=== PATIENT | female | born 1935 | race Caucasian/White ===

== ENCOUNTER 2016-06-28 18:06 | Inpatient (IN) | payer MEDICARE ==
[~2016-06-28] VITALS: Ht 157.5 cm; Wt 74.8 kg
[2016-06-28] VITALS (18 sets, daily range): BP systolic 100–217; BP diastolic 49–117; PULSE 55–150; RESP 18–24; TEMP 98.1; O2SAT 94–100
[~2016-06-28 18:06] MED LIST: ATOR10 PO; CEPH500C3 PO; DARV PO; LEVO25TA36 PO
[2016-06-28] MEDS ORDERED: NIAC500T18 (18:23)
[2016-06-28] MEDS ORDERED: ASPI81TA81 (18:23)
[2016-06-28] MEDS ORDERED: PROBCAP11 (18:23)
[2016-06-28] MEDS ORDERED: FISH120014 (18:23)
[2016-06-28] MEDS ORDERED: CYAN1TAB24 (18:23)
[2016-06-28] MEDS ORDERED: SPIR25TA PO (18:23)
[2016-06-28] MEDS ORDERED: LIPI10TA PO (18:23)
[2016-06-28] MEDS ORDERED: LISI10TA3 PO (18:23)
[2016-06-28] MEDS ORDERED: diphenhydrAMINE HCL 50 MG/ML VIAL ONE (18:25)
[2016-06-28] MEDS ORDERED: EPINEPHrine HCL (1:1000) 1 MG/ML VIAL ONE (18:25)
[2016-06-28] MEDS ORDERED: methylPREDNISolone SOD SUCC 125 MG/2 ML VIAL ONE (18:26)
[2016-06-28] MEDS ORDERED: ETOMIDATE 20 MG/10 ML VIAL ONE (18:26)
[2016-06-28] MEDS ORDERED: SUCCINYLCHOLINE CHLORIDE 200 MG/10 ML VIAL ONE (18:26)
[2016-06-28] MEDS ORDERED: SODIUM CHLOR 0.9% 1000 ML INJ 1,000 ML IV SCH (18:32)
[2016-06-28] MEDS ORDERED: PROPOFOL 1000 MG/100 ML INJ 100 ML ONE (18:44)
[2016-06-28] MEDS ORDERED: EPINEPHrine HCL (1:1000) 1 MG/ML VIAL IM ONE (18:45)
[2016-06-28] MEDS ORDERED: SODIUM CHLORIDE 0.9% FLUSH 5 ML FLUSH IVF PRN (18:45)
[2016-06-28] MEDS ORDERED: FAMOTIDINE 20 MG/2 ML VIAL IV PUSH ONE (18:45)
[2016-06-28] MEDS ORDERED: methylPREDNISolone SOD SUCC 125 MG/2 ML VIAL IVP ONE (18:45)
[2016-06-28] MEDS ORDERED: diphenhydrAMINE HCL 50 MG/ML VIAL IVP ONE (18:45)
--- NOTE | 2016-06-28 19:05 | PD ---
HPI Chief Complaint: Allergic/Adverse Reaction Time Seen by Provider: 18:32 Travel History International Travel<30 days: No Contact w/Intl Traveler<30days: No Traveled to known affect area: No History of Present Illness HPI 80yo F with PMH of HTN on lisinopril presents to the ED with marked swelling in tongue since 4pm today. Pt had lip swelling 2 days ago that resolved on its own so she did not seek medical attention. Pt states she is not able to speak due to tongue swelling. States that she feels like her throat is swelling up too. Denies any fever, chest pain, sob, n/v, abdominal pain, weakness or numbness. PFSH Past Medical History Cardiovascular Problems: Yes High Cholesterol: Yes Diminished Hearing: No Hypertension: Yes Thyroid Disease: Yes Triglycerides - High: Yes Tetanus Vaccination: > 5 Years Influenza Vaccination: No Menopausal: Yes Past Surgical History Abdominal Surgery: Yes Appendectomy: Yes Social History Alcohol Use: No Tobacco Use: No Substance Use: No Allergies-Medications (Allergen,Severity, Reaction): Coded Allergies: No Known Allergies (Verified , 06/28/16) Reported Meds & Prescriptions Reported Meds & Active Scripts Active Reported Probiotic (Probiotic Product) 1 Cap Cap Fish Oil ([place]-3 Fatty Acids) 1,200 Mg Cap 1,200 B12 (Cyanocobalamin) 1,000 Mcg Tab Niacin (Niacinamide) 500 Mg Tab 50 Mg Aspir-81 (Aspirin) 81 Mg Tabdr Spironolactone 25 Mg Tab 25 Mg PO DAILY Lipitor (Atorvastatin Calcium) 10 Mg Tab 10 Mg PO HS Review of Systems Except as stated in HPI: all other systems reviewed are Neg Physical Exam Narrative GENERAL: 80yo F in mild distress. SKIN: Warm and dry. HEAD: Atraumatic. Normocephalic. EYES: Pupils equal and round. No scleral icterus. No injection or drainage. ENT: Marked tongue swelling up to the roof of the hard palate. Unable to visualize uvula. NECK: Trachea midline. No JVD. CARDIOVASCULAR: Regular rate and rhythm. No murmur appreciated. RESPIRATORY: No accessory muscle use. Clear to auscultation. Breath sounds equal bilaterally. GASTROINTESTINAL: Abdomen soft, non-tender, nondistended. No rebound tenderness or guarding. MUSCULOSKELETAL: No obvious deformities. No clubbing. No cyanosis. No edema. NEUROLOGICAL: Awake and alert. No obvious cranial nerve deficits. Motor grossly within normal limits. PSYCHIATRIC: Appropriate mood and affect; insight and judgment normal. Data Data Last Documented VS Vital Signs Date Time Temp Pulse Resp B/P Pulse Ox O2 Delivery O2 Flow Rate FiO2 06/28/16 18:48 98 40 06/28/16 18:40 150 18 217/117 Auto-Vent 06/28/16 18:35 2 06/28/16 18:16 98.1 Orders Epinephrine (1:1000) Inj (Adrenalin (1:1 (06/28/16 18:25) Diphenhydramine Inj (Benadryl Inj) (06/28/16 18:25) Methylprednisolone So Succ Inj (Solumedr (06/28/16 18:26) Etomidate Inj (Amidate Inj) (06/28/16 18:26) Succinylcholine Inj (Quelicin Inj) (06/28/16 18:26) Basic Metabolic Panel (Bmp) (06/28/16 18:32) Complete Blood Count With Diff (06/28/16 18:32) Ecg Monitoring (06/28/16 18:32) Iv Access Insert/Monitor (06/28/16 18:32) Oximetry (06/28/16 18:32) Diphenhydramine Inj (Benadryl Inj) (06/28/16 18:45) Methylprednisolone So Succ Inj (Solumedr (06/28/16 18:45) Famotidine Inj (Pepcid Inj) (06/28/16 18:45) Sodium Chlor 0.9% 1000 Ml Inj (Ns 1000 M (06/28/16 18:32) Sodium Chloride 0.9% Flush (Ns Flush) (06/28/16 18:45) Epinephrine (1:1000) Inj (Adrenalin (1:1 (06/28/16 18:45) Propofol 1000 Mg/100 Ml Inj (Diprivan 10 (06/28/16 18:44) Labs Laboratory Tests Test 06/28/16 18:45 White Blood Count 7.5 TH/MM3 Red Blood Count 3.82 MIL/MM3 Hemoglobin 12.6 GM/DL Hematocrit 37.7 % Mean Corpuscular Volume 98.7 FL Mean Corpuscular Hemoglobin 32.9 PG Mean Corpuscular Hemoglobin 33.3 % Concent Red Cell Distribution Width 13.4 % Platelet Count 203 TH/MM3 Mean Platelet Volume 8.9 FL Neutrophils (%) (Auto) 57.4 % Lymphocytes (%) (Auto) 28.2 % Monocytes (%) (Auto) 11.7 % Eosinophils (%) (Auto) 2.5 % Basophils (%) (Auto) 0.2 % Neutrophils # (Auto) 4.3 TH/MM3 Lymphocytes # (Auto) 2.1 TH/MM3 Monocytes # (Auto) 0.9 TH/MM3 Eosinophils # (Auto) 0.2 TH/MM3 Basophils # (Auto) 0.0 TH/MM3 CBC Comment DIFF FINAL Differential Comment Sodium Level 135 MEQ/L Potassium Level 3.7 MEQ/L Chloride Level 98 MEQ/L Carbon Dioxide Level 28.2 MEQ/L Anion Gap 9 MEQ/L Blood Urea Nitrogen 8 MG/DL Creatinine 0.67 MG/DL Estimat Glomerular Filtration 84 ML/MIN Rate Random Glucose 84 MG/DL Calcium Level 9.3 MG/DL MDM Medical Decision Making Medical Screen Exam Complete: Yes Emergency Medical Condition: Yes Differential Diagnosis Anaphylaxis vs. angioedema Narrative Course 80yo F with marked tongue swelling that did not improve after epinephrine, solumedrol, diphenhydramine and famotidine. Concern for pt's airway so pt emergently intubated with glidescope. Intubation was achieved with RSI and glidescope. Labs reviewed, no leukocytosis. BMP unremarkable. Pt was not sedated on propofol drip so switched to fentanyl and versed drip. Discussed with Dr. Guillen and accepted to ICU. Critical Care Narrative Aggregate critical care time was 40 minutes. Time to perform other separately billable procedures was not included in the critical care time. My time did not include minutes spent treating any other patients simultaneously or on activities that did not directly contribute to the patient's treatment. The services I provided to this patient were to treat and/or prevent clinically significant deterioration that could result in: airway compromise and . I provided critical care services requiring my management, as noted below: Chart data review, documentation time, medication orders and management, vital sign assessments/reviewing monitor data, ordering and reviewing lab tests, ordering and interpreting/reviewing x-rays and diagnostic studies, care of the patient and discussion of the patient with the admitting physicians. Procedures Procedure Narrative The patient was put in optimal position for the procedure. Rapid sequence intubation was initiated by me using 20 milligrams of etomidate IV and 100 milligrams of succinylcholine IV. The patient was intubated with a 7.0 cuffed endotracheal tube using glidescope on first pass. Tube placement was confirmed by visualization of the tube and balloon passing through the cords, and capnometry. Breath sounds were equal and well aerated bilaterally postintubation. No breath sounds over stomach. Patient tolerated procedure well. Diagnosis Primary Impression: Angioedema Qualified Code: T78.3XXA - Angioedema, initial encounter Admitting Information Admitting Physician Requests: Admit Denise Hall DO Jun 28, 2016 19:05 Denise Hall DO Jun 28, 2016 19:05
[2016-06-28] MEDS ORDERED: MIDAZOLAM HCL 5 MG/ML VIAL (1 ML) ONE (19:09)
[2016-06-28 19:30] LABS: AUTOMATED NEUTROPHIL # 4.3 TH/MM3 (1.8-7.7); BASOPHIL % 0.2 % (0.0-2.0); EOSINOPHIL # 0.2 TH/MM3 (0-0.4); EOSINOPHIL % 2.5 % (0.0-4.0); HEMATOCRIT 37.7 % (35.0-46.0); HEMO FLAGS DIFF FINAL; LYMPH % 28.2 % (9.0-44.0); LYMPHOCYTE # 2.1 TH/MM3 (1.0-4.8); MEAN CELL VOLUME 98.7 FL (80.0-100.0); MEAN CORPUSCULAR HEMOGLOBIN 32.9 PG (27.0-34.0); MEAN CORPUSCULAR HGB CONC 33.3 % (32.0-36.0); MONO % 11.7 % (0.0-8.0); NEUT % 57.4 % (16.0-70.0); PLATELET COUNT 203 TH/MM3 (150-450); RED BLOOD COUNT 3.82 MIL/MM3 (4.00-5.30); RED CELL DISTRIBUTION WIDTH 13.4 % (11.6-17.2); WHITE BLOOD COUNT 7.5 TH/MM3 (4.0-11.0)
[2016-06-28] MEDS ORDERED: CHLORHEXIDINE GLUCONATE 2 % 1 PACK (2 CLOTHS) TOP PRN (19:30)
[2016-06-28] MEDS ORDERED: ACETAMINOPHEN 325 MG TAB PO PRN (19:30)
[2016-06-28] MEDS ORDERED: MISCELLANEOUS NURSING INFORMATION XX SCH (19:30)
[2016-06-28] MEDS ORDERED: MIDAZOLAM HCL 2 MG/2 ML VIAL IV PRN (19:30)
[2016-06-28] MEDS ORDERED: METOCLOPRAMIDE HCL 10 MG/2 ML VIAL IV PRN (19:30)
[2016-06-28] MEDS ORDERED: ONDANSETRON HCL 4 MG/2 ML VIAL IV PRN (19:30)
[2016-06-28] MEDS ORDERED: RESP: ALBUTEROL 2.5 MG/IPRATROPIUM 0.5 MG NEB (PRN) INH (19:30)
[2016-06-28] MEDS ORDERED: SODIUM CHLORIDE 0.9% FLUSH 5 ML FLUSH IV FLUSH PRN (19:30)
[2016-06-28] MEDS ORDERED: MIDAZOLAM 100 MG/ML INJ 100 ML ONE (19:35)
[2016-06-28] MEDS ORDERED: fentaNYL DRIP 250 ML ONE (19:35)
[2016-06-28] MEDS: MIDAZOLAM 100 MG/ML INJ 100 ML IV SCH (19:38)
[2016-06-28] MEDS: fentaNYL DRIP 250 ML IV SCH (19:39)
[2016-06-28 19:43] LABS: BLOOD GAS CARBOXYHEMOGLOBIN 2.1 % (0-4); BLOOD GAS HCO3 24 mmol/L (22-26); BLOOD GAS METHEMOGLOBIN 1.7 % (0-2); BLOOD GAS O2 HGB SATURATION 96 % (90-100); BLOOD GAS PCO2 41 mmHg (38-42); BLOOD GAS PO2 132 mmHG (61-120); BLOOD GAS TOTAL HGB 11.8 G/DL (12.0-16.0); CRITICAL VALUE NO; OXYGEN DEVICE VENTILATOR; TEMP CORR TO 98.6
[2016-06-28 19:44] LABS: DRAW SITE LT RADIAL; FIO2 40 %; NUMBER OF ARTERIAL PUNCTURES 1; STAT NO; ULNAR PULSE PRESENT; VENT SETTINGS PRVC/AC
[2016-06-28] MEDS ORDERED: MIDAZOLAM HCL 2 MG/2 ML VIAL IV PUSH ONE (19:45)
[2016-06-28 19:49] LABS: BICARBONATE 28.2 MEQ/L (21.0-32.0); POTASSIUM 3.7 MEQ/L (3.5-5.1)
[2016-06-28] MEDS: RESP: ALBUTEROL 2.5 MG/IPRATROPIUM 0.5 MG NEB (SCH) INH ×2 (20:10→23:59)
[2016-06-28] MEDS: SODIUM CHLOR 0.9% 1000 ML INJ 1,000 ML IV SCH (20:39)
--- NOTE | 2016-06-28 20:47 | HHI.HP ---
HPI Service Critical Care Medicine Primary Care Physician Unknown Admission Diagnosis Anaphylaxis Diagnosis: Travel History International Travel<30 Days: No Contact w/Intl Traveler <30 Da: No Traveled to Known Affected Are: No History of Present Illness 80 year old female HTN on lisinopril presents to the ED with swelling in tongue since 4pm today. She also had lip swelling 2 days ago that resolved on its own so she did not seek medical attention. Her edema was gettring worse and she was intubated in the ED by ER attending. Review of Systems ROS Unable to obtain, patient is sedated and intubated Past Family Social History Allergies: Coded Allergies: No Known Allergies (Verified , 06/28/16) Past Medical History High Cholesterol, Hypertension, Thyroid Disease Past Surgical History Appendectomy Reported Medications Probiotic (Probiotic Product) 1 Cap Cap Fish Oil ([place]-3 Fatty Acids) 1,200 Mg Cap 1,200 B12 (Cyanocobalamin) 1,000 Mcg Tab Niacin (Niacinamide) 500 Mg Tab 50 Mg Aspir-81 (Aspirin) 81 Mg Tabdr Lisinopril 10 Mg Tab 10 Mg PO DAILY Spironolactone 25 Mg Tab 25 Mg PO DAILY Lipitor (Atorvastatin Calcium) 10 Mg Tab 10 Mg PO HS Active Ordered Medications Current Medications Medications (Trade) Dose Ordered Sig/[place] Route PRN Reason Start Time Stop Time Status Last Admin Dose Admin Midazolam HCl 100 ml @ 0 mls/hr CONTINUOUS IV 06/28/16 19:30 06/28/16 19:38 Fentanyl Citrate 250 ml @ 0 mls/hr CONTINUOUS IV 06/28/16 19:30 06/28/16 19:39 Sodium Chloride (NS 1000 ml Inj) 1,000 ml @ 84 mls/hr [id number] IV 06/28/16 19:21 06/28/16 20:39 IV Flush (NS Flush) 2 ml UNSCH PRN IV FLUSH FLUSH AFTER USING IV ACCESS 06/28/16 19:30 IV Flush (NS Flush) 2 ml BID IV FLUSH 06/28/16 21:00 Acetaminophen (Tylenol) 650 mg Q6H PRN PO PAIN 1-10 AND/OR FEVER >101F 06/28/16 19:30 Famotidine (Pepcid Inj) 20 mg Q12HR IV PUSH 06/28/16 21:00 Midazolam HCl (Versed Inj) 2 mg Q1H PRN IV SEDATION 06/28/16 19:30 Artificial Tears (Tears Naturale Opth Soln) 1 drop TID EACH EYE 06/29/16 09:00 Ondansetron HCl (Zofran Inj) 4 mg Q6H PRN IV NAUSEA OR VOMITING 06/28/16 19:30 Metoclopramide HCl (Reglan Inj) 10 mg Q6H PRN IV NAUSEA OR VOMITING 06/28/16 19:30 Docusate Sodium (Colace Liq) 100 mg Q12HR G-TUBE 06/28/16 21:00 Enoxaparin Sodium (Lovenox Inj) 30 mg Q24H SQ 06/28/16 21:00 Miscellaneous Information 1 [id number] 06/28/16 19:30 Chlorhexidine Gluconate (Chlorhexidine 2% Cloth) 3 pack Taper DAILY@04 TOP 06/29/16 04:00 06/25/17 03:59 Chlorhexidine Gluconate (Chlorhexidine 2% Cloth) 3 pack UNSCH PRN TOP HYGIENIC CARE 06/28/16 19:30 Dexamethasone Sodium Phosphate (Decadron Inj) 10 mg Q24H IM 06/28/16 21:00 06/30/16 21:01 Diphenhydramine HCl (Benadryl Inj) 25 mg Q6H IM 06/28/16 21:00 Family History Noncontributory Social History Alcohol Use Tobacco Use Substance Use Physical Exam Vital Signs Vital Signs Date Time Temp Pulse Resp B/P Pulse Ox O2 Delivery O2 Flow Rate FiO2 06/28/16 20:40 82 18 121/58 95 Auto-Vent 06/28/16 20:23 73 18 108/53 96 Auto-Vent 06/28/16 19:46 99 40 06/28/16 19:44 87 18 142/65 100 Auto-Vent 06/28/16 19:31 93 18 144/65 99 Auto-Vent 06/28/16 19:21 94 18 160/70 98 Auto-Vent 06/28/16 19:05 96 18 162/74 99 Auto-Vent 06/28/16 18:59 120 18 201/115 97 Auto-Vent 06/28/16 18:48 98 40 06/28/16 18:40 150 18 217/117 98 Auto-Vent 06/28/16 18:35 22 95 Nasal Cannula 2 06/28/16 18:24 22 97 Nasal Cannula 2 06/28/16 18:16 98.1 93 24 211/95 95 Physical Exam GENERAL: Well-nourished, well-developed patient. SKIN: Warm and dry. HEAD: Normocephalic. EYES: No scleral icterus. No injection or drainage. NECK: Supple, trachea midline. No JVD or lymphadenopathy. CARDIOVASCULAR: Regular rate and rhythm without murmurs, gallops, or rubs. RESPIRATORY: Breath sounds equal bilaterally. No accessory muscle use. GASTROINTESTINAL: Abdomen soft, non-tender, nondistended. MUSCULOSKELETAL: No cyanosis, or edema. BACK: Nontender without obvious deformity. No CVA tenderness. Laboratory Laboratory Tests Test 06/28/16 06/28/16 18:45 19:35 White Blood Count 7.5 Red Blood Count 3.82 Hemoglobin 12.6 Hematocrit 37.7 Mean Corpuscular Volume 98.7 Mean Corpuscular Hemoglobin 32.9 Mean Corpuscular Hemoglobin 33.3 Concent Red Cell Distribution Width 13.4 Platelet Count 203 Mean Platelet Volume 8.9 Neutrophils (%) (Auto) 57.4 Lymphocytes (%) (Auto) 28.2 Monocytes (%) (Auto) 11.7 Eosinophils (%) (Auto) 2.5 Basophils (%) (Auto) 0.2 Neutrophils # (Auto) 4.3 Lymphocytes # (Auto) 2.1 Monocytes # (Auto) 0.9 Eosinophils # (Auto) 0.2 Basophils # (Auto) 0.0 CBC Comment DIFF FINAL Differential Comment Sodium Level 135 Potassium Level 3.7 Chloride Level 98 Carbon Dioxide Level 28.2 Anion Gap 9 Blood Urea Nitrogen 8 Creatinine 0.67 Estimat Glomerular Filtration 84 Rate Random Glucose 84 Calcium Level 9.3 Blood Gas Puncture Site LT RADIAL Blood Gas Patient Temperature 98.6 Blood Gas HCO3 24 Blood Gas Base Excess -1.0 Blood Gas Oxygen Saturation 96 Arterial Blood pH 7.38 Arterial Blood Partial 41 Pressure CO2 Arterial Blood Partial 132 Pressure O2 Arterial Blood Oxygen Content 16.0 Arterial Blood 2.1 Carboxyhemoglobin Arterial Blood Methemoglobin 1.7 Blood Gas Hemoglobin 11.8 Oxygen Delivery Device VENTILATOR Blood Gas Ventilator Setting PRVC/AC Blood Gas Inspired Oxygen 40 Result Diagram: 06/28/16 1845 06/28/161844 Septic Shock Reassessment Peripheral Pulses: Bounding Right Radial Bounding Left Radial Assessment and Plan Problem List: (1) Angioedema ICD Code: T78.3XXA Status: Acute (2) Dyslipidemia ICD Code: E78.5 Status: Acute (3) HTN (hypertension) ICD Code: I10 Status: Acute (4) Respiratory failure ICD Code: J96.90 Status: Acute Assessment and Plan Respiratory failure - intubated for an airway protection - continue mechanical ventilation until angioedema resoles - ABG/CXR a.m. Angioedema - ACEi related ?? - Steroids, H1, H2 - supportive care HTN - Hydralazine PRN - goal SBT < 150 - Resume home meds except Lisinopril Nutrition - TF DVT/GI prophylaxis - Lovenox/Pepcid Critical Care: The total critical care time was 35 minutes. Time to perform other separately billable procedures was not included in the critical care time. Manan Guillen MD Jun 28, 2016 20:47
[2016-06-28] MEDS ORDERED: DEXAMETHASONE SOD PHOS 20 MG/5 ML VIAL IM SCH (21:00)
[2016-06-28] MEDS: FAMOTIDINE 20 MG/2 ML VIAL IV PUSH SCH (21:00)
[2016-06-28] MEDS ORDERED: diphenhydrAMINE HCL 50 MG/ML VIAL IM SCH (21:00)
[2016-06-28] MEDS: SODIUM CHLORIDE 0.9% FLUSH 5 ML FLUSH IV FLUSH SCH (21:00)
[2016-06-28] MEDS: DOCUSATE SODIUM 100 MG/10 ML UDC G-TUBE SCH (21:00)
[2016-06-28] MEDS: ENOXAPARIN SODIUM 30 MG/0.3 ML SYRINGE SQ SCH (21:00)
[2016-06-28] MEDS ORDERED: hydrALAZINE HCL 20 MG/ML VIAL IV PUSH PRN (21:45)
--- NOTE | 2016-06-28 23:46 | RADRPT ---
EXAM DATE/TIME: 06/28/2016 23:07 [facility] COMPARISON: No previous studies available for comparison. INDICATIONS : Post intubation. MEDICAL HISTORY : Unobtainable. SURGICAL HISTORY : Unobtainable. ENCOUNTER: Initial ACUITY: 1 day PAIN SCORE: Non-responsive. LOCATION: Bilateral chest FINDINGS: The lungs are clear without infiltrate, nodule, or mass. There is no appreciable pleural effusion fo r technique. Heart and mediastinum are unremarkable. NG tube is present with tip in the stomach. ET tube is present with tip overlapping approximately 4 cm above the greg. CONCLUSION: No acute cardiopulmonary disease. Cristina Youssef MD on June 28, 2016 at 23:44 Board Certified Radiologist. This report was verified electronically.
[2016-06-29] VITALS (16 sets, daily range): BP systolic 96–138; BP diastolic 51–65; PULSE 57–77; RESP 14–20; TEMP 97.7–98.4; O2SAT 96–100
[2016-06-29] MEDS: RESP: ALBUTEROL 2.5 MG/IPRATROPIUM 0.5 MG NEB (SCH) INH ×5 (03:31→19:44)
[2016-06-29] MEDS: CHLORHEXIDINE GLUCONATE 2 % 1 PACK (2 CLOTHS) TOP SCH (04:00)
[2016-06-29 05:26] LABS: BLOOD GAS BASE EXCESS -0.8 mmol/L (-2-2); BLOOD GAS CARBOXYHEMOGLOBIN 1.5 % (0-4); BLOOD GAS HCO3 25 mmol/L (22-26); BLOOD GAS METHEMOGLOBIN 0.9 % (0-2); BLOOD GAS O2 HGB SATURATION 97 % (90-100); BLOOD GAS OXYGEN CONTENT 15.1 Vol % (12.0-20.0); BLOOD GAS PCO2 49 mmHg (38-42); BLOOD GAS PO2 134 mmHg (61-120); BLOOD GAS TOTAL HGB 10.9 G/DL (12.0-16.0); CRITICAL VALUE NO; TEMP CORR TO 98.6
[2016-06-29 05:27] LABS: OXYGEN DEVICE VENTILATOR
[2016-06-29 05:28] LABS: DRAW SITE RT RADIAL; FIO2 35 %; NUMBER OF ARTERIAL PUNCTURES 2; STAT NO; ULNAR PULSE PRESENT; VENT SETTINGS PRVC/AC
[2016-06-29 05:55] LABS: BASOPHIL % 0.1 % (0.0-2.0); HEMATOCRIT 32.8 % (35.0-46.0); HEMO FLAGS DIFF FINAL; LYMPH % 6.7 % (9.0-44.0); LYMPHOCYTE # 0.4 TH/MM3 (1.0-4.8); MEAN CELL VOLUME 98.4 FL (80.0-100.0); MEAN CORPUSCULAR HEMOGLOBIN 32.2 PG (27.0-34.0); MEAN CORPUSCULAR HGB CONC 32.7 % (32.0-36.0); MONO % 2.4 % (0.0-8.0); NEUT % 90.8 % (16.0-70.0); PLATELET COUNT 165 TH/MM3 (150-450); RED BLOOD COUNT 3.33 MIL/MM3 (4.00-5.30); WHITE BLOOD COUNT 6.6 TH/MM3 (4.0-11.0)
[2016-06-29 06:26] LABS: ANION GAP 7 MEQ/L (5-15); AST (GOT) 15 U/L (15-37); BICARBONATE 25.9 MEQ/L (21.0-32.0); BLOOD UREA NITROGEN 10 MG/DL (7-18); CHLORIDE 104 MEQ/L (98-107); GLOMERULAR FILTRATION RATE 86 ML/MIN (>89); MAGNESIUM 1.8 MG/DL (1.5-2.5); POTASSIUM 4.3 MEQ/L (3.5-5.1); SODIUM (NA) 137 MEQ/L (136-145)
[2016-06-29 06:29] LABS: ALKALINE PHOSPHATASE 69 U/L (45-117); ALT (GPT) 18 U/L (10-53); TOTAL BILIRUBIN ADULT 0.3 MG/DL (0.2-1.0)
--- NOTE | 2016-06-29 07:00 | RADRPT ---
EXAM DATE/TIME: 06/29/2016 06:08 [facility] COMPARISON: CHEST SINGLE AP, June 28, 2016, 23:07. INDICATIONS : Evaluate for respiratory failure. MEDICAL HISTORY : None. SURGICAL HISTORY : None. ENCOUNTER: Subsequent ACUITY: 3 days PAIN SCORE: Non-responsive. LOCATION: chest FINDINGS: ET tube, and NG tube have not changed. The lungs are clear without infiltrate, nodule, or mass. Ther e is no appreciable pleural effusion for technique. Heart and mediastinum are unremarkable. CONCLUSION: No acute cardiopulmonary disease. Cristina Youssef MD on June 29, 2016 at 6:58 Board Certified Radiologist. This report was verified electronically.
--- NOTE | 2016-06-29 07:13 | HHI.CCPN ---
Subjective Remarks/Hospital Course 80 year old female HTN on lisinopril presents to the ED with swelling in tongue since 4pm today. She also had lip swelling 2 days ago that resolved on its own so she did not seek medical attention. Her edema was getting worse and she was intubated in the ED by ER attending. SUBJECTIVE: 06/29: Sedated on the ventilator. Afebrile. Bradycardic. Hemodynamically appears to be stable. Her tongue continues to protrude from mouth. On Versed and fentanyl drips and sedated. Objective Vital Signs Date Time Temp Pulse Resp B/P Pulse Ox O2 Delivery O2 Flow Rate FiO2 06/29/16 06:00 57 06/29/16 04:00 97.9 20 97/51 98 06/29/16 03:32 35 06/28/16 23:34 Auto-Vent 06/28/16 18:35 2 Intake and Output 06/28/16 06/28/16 06/29/16 08:00 16:00 00:00 Intake Total 338 ml Output Total 575 ml Balance -237 ml Result Diagram: 06/29/16 0521 06/29/16 0521 Imaging Last Impressions Chest X-Ray 06/28/16 0000 Signed Impressions: Service Date/Time: June 23:07 - CONCLUSION: No acute cardiopulmonary disease. Cristina Youssef MD Objective Remarks GENERAL: 80-year-old female, well-nourished and well-developed critically ill and currently orotracheally intubated SKIN: Warm and dry. No rash HEAD: Normocephalic. EYES: PERRL 2 mm b/l and reactive. No scleral icterus. No injection or drainage. N/T: Tongue does protrude from mouth. NECK: Supple, trachea midline. No JVD or lymphadenopathy. CARDIOVASCULAR: Bradycardic, RR. S1, S2. No S4. Currently without murmurs, gallops, or rubs. RESPIRATORY: Breath sounds equal bilaterally. No accessory muscle use. GASTROINTESTINAL: Abdomen soft, non-tender, nondistended. Active bowel sounds MUSCULOSKELETAL: No significant peripheral edema. BACK: Nontender without obvious deformity. No CVA tenderness. Urinary Catheter: Yes Assessment to: Continue Will insert reason: Prolonged Immobilization Vascular Central Line Catheter: No Assessment to: Continue A/P Problem List: (1) Angioedema ICD Code: T78.3XXA Status: Acute (2) Dyslipidemia ICD Code: E78.5 Status: Acute (3) HTN (hypertension) ICD Code: I10 Status: Acute (4) Respiratory failure ICD Code: J96.90 Status: Acute Assessment and Plan Neuro/Psych: Patient is currently on propofol/fentanyl drips for sedation/analgesia while intubated Goal RASS -2 Daily sedation vacation CV: Sinus bradycardia History of hypertension History dyslipidemia Currently on normal saline at 84 cc an hour. Currently not requiring antihypertensives and/or vasopressors. Discontinue lisinopril. Possibly J CARLOS-induced angioedema Checking complements As needed hydralazine for hypertension. Holding spironolactone 25 mg by mouth daily for hypertension. Holding Lipitor 10 mg daily/fish oil 1000 mg/niacin 500 mg daily with aspirin 81 mg daily by mouth daily dyslipidemia. Resume when clinically indicated Resp: Acute respiratory failure secondary to angioedema PRVC 14/~500/1.0/5/35 Ventilator bundle Scheduled bronchodilator therapy every 4 hours and as needed Spontaneous breathing trials daily Chest x-ray today reveals no acute cardiopulmonary findings. Adequate positioning ET tube. Impetus to liberation from ventilator is angioedema GI: Patient is currently on TwoCal goal 55 cc an hour for nutrition Pepcid 20 mg IV twice a day for GI prophylaxis Colace/Senokot twice a day for bowel regimen : Will has been placed for accurate I's and O's in a critically ill patient. Endo: Hyperglycemia - critical illness/steroid-induced History of hypothyroidism? Sliding-scale insulin with Accu-Cheks every 6 hours to maintain euglycemia. Low regimen. Check TSH. Currently not on any thyroid medications. Renal: Monitor urine output Accurate I/O's. Follow-ups BMP in a.m. Heme: Normocytic anemia Follow CBC in AM. ID: Monitor for infection FEN: Hypo-magnesium 2 g mag sulfate IV 1. Recheck in a.m. MSK: PT evaluate and treat Access - Utilize peripheral IV. Central if indicated Prophylaxis - GI - Pepcid - DVT - SCD/Lovenox subcutaneous Critical Care: The total critical care time was 35 minutes. Time to perform other separately billable procedures was not included in the critical care time. Resp iratory failure - intubated for an airway protection - continue mechanical ventilation until angioedema resoles - ABG/CXR a.m. Angioedema - ACEi related ?? - Steroids, H1, H2 - supportive care HTN - Hydralazine PRN - goal SBT < 150 - Resume home meds except Lisinopril Nutrition - TF DVT/GI prophylaxis - Lovenox/Pepcid Critical Care: The total critical care time was 35 minutes. Time to perform other separately billable procedures was not included in the critical care time. Problem Qualifiers (1) Angioedema: Qualified Code: T78.3XXA - Angioedema, initial encounter Robb Seymour MD Jun 29, 2016 07:13
[2016-06-29] MEDS ORDERED: GLUCAGON 1 MG/ML VIAL OTHER PRN (07:15)
[2016-06-29] MEDS ORDERED: DEXTROSE 50% IN WATER 50 ML VIAL(D50) IV PUSH PRN (07:15)
[2016-06-29] MEDS: diphenhydrAMINE HCL 50 MG/ML VIAL IV PUSH SCH ×3 (07:44→19:59)
[2016-06-29] MEDS: methylPREDNISolone SOD SUCC 125 MG/2 ML VIAL IV PUSH SCH ×2 (07:45→20:07)
[2016-06-29] MEDS: SENNOSIDES SYRUP 8.8 MG/5 ML CUP PO SCH ×2 (07:45→20:07)
[2016-06-29] MEDS: MAGNESIUM SULFATE 1 GM PREMIX 100 ML IV SCH ×2 (07:45→09:04)
[2016-06-29] MEDS: DOCUSATE SODIUM 100 MG/10 ML UDC G-TUBE SCH ×2 (07:53→20:07)
[2016-06-29 08:46] LABS: HDL CHOLESTEROL 74.6 MG/DL (40.0-60.0)
[2016-06-29] MEDS: FAMOTIDINE 20 MG/2 ML VIAL IV PUSH SCH ×2 (09:00→20:08)
[2016-06-29] MEDS: ARTIFICIAL TEARS OPTH SOLN 15 ML BTL EACH EYE SCH ×3 (09:00→18:00)
[2016-06-29] MEDS: SODIUM CHLOR 0.9% 1000 ML INJ 1,000 ML IV SCH ×2 (09:04→17:49)
[2016-06-29] MEDS: SODIUM CHLORIDE 0.9% FLUSH 5 ML FLUSH IV FLUSH SCH ×2 (09:05→20:09)
[2016-06-29] MEDS: INSULIN NovoLIN REGULAR SUPPLEMENTAL SCALE SQ SCH ×3 (11:00→20:53)
[2016-06-29] MEDS ORDERED: ALBUMIN HUMAN 25% 25 GM/100 ML BAGP IV ONE (11:15)
[2016-06-29] MEDS ORDERED: SODIUM CHLOR 0.9% 1000 ML INJ 1,000 ML IV ONE (11:15)
[2016-06-29] MEDS: ENOXAPARIN SODIUM 30 MG/0.3 ML SYRINGE SQ SCH (20:09)
[2016-06-29 20:17] LABS: BACTERIA, URINE RARE /hpf; BLOOD, URINE LARGE (NEG); GLUCOSE,URINE NEG (NEG); KETONE, URINE NEG (NEG); MUCUS URINE FEW /lpf (OCC); NITRITE,URINE NEG (NEG); PH, URINE 5.5 (5.0-8.5); URINE COLOR YELLOW (YELLW/STRAW)
[2016-06-29 20:18] LABS: COMMENT (UR) CATH-CULTURE IND; CULTURE IF INDICATED CATH CULTURE IND
[2016-06-30] VITALS (20 sets, daily range): BP systolic 111–173; BP diastolic 55–80; PULSE 67–91; RESP 14–20; TEMP 97.3–98.9; O2SAT 96–100
[2016-06-30] MEDS: RESP: ALBUTEROL 2.5 MG/IPRATROPIUM 0.5 MG NEB (SCH) INH ×7 (00:01→23:00)
[2016-06-30] MEDS: diphenhydrAMINE HCL 50 MG/ML VIAL IV PUSH SCH ×5 (02:18→23:42)
[2016-06-30] MEDS: CHLORHEXIDINE GLUCONATE 2 % 1 PACK (2 CLOTHS) TOP SCH (04:00)
[2016-06-30 05:17] LABS: AUTOMATED NEUTROPHIL # 13.2 TH/MM3 (1.8-7.7); BASOPHIL % 0.1 % (0.0-2.0); HEMATOCRIT 29.7 % (35.0-46.0); HEMO FLAGS DIFF FINAL; LYMPH % 1.7 % (9.0-44.0); LYMPHOCYTE # 0.2 TH/MM3 (1.0-4.8); MEAN CELL VOLUME 98.2 FL (80.0-100.0); MEAN CORPUSCULAR HEMOGLOBIN 32.9 PG (27.0-34.0); MEAN CORPUSCULAR HGB CONC 33.5 % (32.0-36.0); MONO % 5.1 % (0.0-8.0); NEUT % 93.1 % (16.0-70.0); PLATELET COUNT 134 TH/MM3 (150-450); RED BLOOD COUNT 3.02 MIL/MM3 (4.00-5.30); RED CELL DISTRIBUTION WIDTH 13.4 % (11.6-17.2); WHITE BLOOD COUNT 14.2 TH/MM3 (4.0-11.0)
[2016-06-30 05:51] LABS: ANION GAP 8 MEQ/L (5-15); AST (GOT) 7 U/L (15-37); BICARBONATE 25.3 MEQ/L (21.0-32.0); BLOOD UREA NITROGEN 27 MG/DL (7-18); CHLORIDE 107 MEQ/L (98-107); GLOMERULAR FILTRATION RATE 69 ML/MIN (>89); MAGNESIUM 2.3 MG/DL (1.5-2.5); POTASSIUM 4.2 MEQ/L (3.5-5.1); SODIUM (NA) 140 MEQ/L (136-145)
[2016-06-30 05:56] LABS: ALKALINE PHOSPHATASE 62 U/L (45-117); ALT (GPT) 16 U/L (10-53); TOTAL BILIRUBIN ADULT 0.2 MG/DL (0.2-1.0)
[2016-06-30 06:15] LABS: CREATINE KINASE 59 U/L (26-192)
[2016-06-30] MEDS: INSULIN NovoLIN REGULAR SUPPLEMENTAL SCALE SQ SCH ×4 (06:36→20:34)
[2016-06-30] MEDS: SODIUM CHLOR 0.9% 1000 ML INJ 1,000 ML IV SCH ×2 (06:37→17:37)
[2016-06-30] MEDS ORDERED: LACTATED RINGER'S 1000 ML INJ 1,000 ML IV ONE (08:00)
[2016-06-30] MEDS: ARTIFICIAL TEARS OPTH SOLN 15 ML BTL EACH EYE SCH ×3 (09:00→20:37)
[2016-06-30] MEDS: DOCUSATE SODIUM 100 MG/10 ML UDC G-TUBE SCH ×2 (09:13→20:35)
[2016-06-30] MEDS: SENNOSIDES SYRUP 8.8 MG/5 ML CUP PO SCH ×2 (09:14→20:35)
[2016-06-30] MEDS: methylPREDNISolone SOD SUCC 125 MG/2 ML VIAL IV PUSH SCH ×2 (09:14→20:35)
[2016-06-30] MEDS: FAMOTIDINE 20 MG/2 ML VIAL IV PUSH SCH ×2 (09:14→20:35)
[2016-06-30] MEDS: SODIUM CHLORIDE 0.9% FLUSH 5 ML FLUSH IV FLUSH SCH ×2 (09:15→20:36)
[2016-06-30] MEDS: fentaNYL DRIP 250 ML IV SCH (09:51)
[2016-06-30] MEDS: MIDAZOLAM 100 MG/ML INJ 100 ML IV SCH (09:51)
[2016-06-30] MEDS: POTASSIUM PHOSPHATE/SODIUM PHOSPHATE 250 MG TAB PO SCH ×3 (11:37→23:43)
--- NOTE | 2016-06-30 12:11 | HHI.CCPN ---
Subjective Remarks/Hospital Course 80 year old female HTN on lisinopril presents to the ED with swelling in tongue since 4pm today. She also had lip swelling 2 days ago that resolved on its own so she did not seek medical attention. Her edema was getting worse and she was intubated in the ED by ER attending. 06/29: Sedated on the ventilator. Afebrile. Bradycardic. Hemodynamically appears to be stable. Her tongue continues to protrude from mouth. On Versed and fentanyl drips and sedated. SUBJECTIVE: 06/30: Afebrile. Her angioedema of her tongue appears to be improving. Plan for CT neck to better define. Possible extubation today. Awake and alert and following commands. No bowel movement. Tolerating tube feeding. Objective Vital Signs Date Time Temp Pulse Resp B/P Pulse Ox O2 Delivery O2 Flow Rate FiO2 06/30/16 10:00 78 06/30/16 08:22 97 35 06/30/16 08:00 98.2 14 113/57 06/28/16 23:34 Auto-Vent 06/28/16 18:35 2.00 Intake and Output 06/29/16 06/29/16 06/30/16 08:00 16:00 00:00 Intake Total 386 ml 2838 ml Output Total 200 ml 400 ml Balance 186 ml 2438 ml Result Diagram: 06/30/16 0456 06/30/16 0456 Other Results Microbiology Date/Time Procedure Status Source Growth 06/29/16 18:00 Urine Culture Received Urine Clean Catch Pending Imaging Last Impressions Chest X-Ray 06/29/16 0600 Signed Impressions: Service Date/Time: Wednesday, June 29, 2016 06:08 - CONCLUSION: No acute cardiopulmonary disease. Cristina Youssef MD Objective Remarks GENERAL: 80-year-old female, well-nourished and well-developed critically ill and currently orotracheally intubated SKIN: Warm and dry. No rash HEAD: Normocephalic. EYES: PERRL 2 mm b/l and reactive. No scleral icterus. No injection or drainage. N/T: Tongue no longer protrudes from mouth. Less swelling noted. Orotracheally intubated. NECK: Supple, trachea midline. No JVD or lymphadenopathy. CARDIOVASCULAR: Bradycardic, RR. S1, S2. No S4. Currently without murmurs, gallops, or rubs. RESPIRATORY: Breath sounds equal bilaterally. No accessory muscle use. GASTROINTESTINAL: Abdomen soft, non-tender, nondistended. Active bowel sounds MUSCULOSKELETAL: No significant peripheral edema. BACK: Nontender without obvious deformity. No CVA tenderness. A/P Problem List: (1) Angioedema ICD Code: T78.3XXA Status: Acute (2) Dyslipidemia ICD Code: E78.5 Status: Acute (3) HTN (hypertension) ICD Code: I10 Status: Acute (4) Respiratory failure ICD Code: J96.90 Status: Acute Assessment and Plan Neuro/Psych: Patient is currently on Versed/fentanyl drips for sedation/analgesia while intubated Goal RASS -2 Daily sedation vacation CV: Sinus bradycardia History of hypertension History dyslipidemia Currently on normal saline at 84 cc an hour. Currently not requiring antihypertensives and/or vasopressors. Discontinue lisinopril. Possibly J CARLOS-induced angioedema Checking complements As needed hydralazine for hypertension. Holding spironolactone 25 mg by mouth daily for hypertension. Holding Lipitor 10 mg daily/fish oil 1000 mg/niacin 500 mg daily with aspirin 81 mg daily by mouth daily dyslipidemia. Resume when clinically indicated Lisinopril added as an allergy. Resp: Acute respiratory failure secondary to angioedema PRVC 14/~500/1.0/5/35 PSV trials today Ventilator bundle Scheduled bronchodilator therapy every 4 hours and as needed Spontaneous breathing trials daily Chest x-ray today reveals no acute cardiopulmonary findings. Adequate positioning ET tube. Impetus to liberation from ventilator is angioedema GI: Patient is currently on Jevity 1.5 goal 55 cc an hour for nutrition Pepcid 20 mg IV twice a day for GI prophylaxis Colace/Senokot twice a day for bowel regimen : Will has been placed for accurate I's and O's in a critically ill patient. Endo: Hyperglycemia - critical illness/steroid-induced History of hypothyroidism? Sliding-scale insulin with Accu-Cheks every 6 hours to maintain euglycemia. Low regimen. TSH within normal limits Renal: Monitor urine output Accurate I/O's. Follow-ups BMP in a.m. Heme: Normocytic anemia Leukocytosis - likely steroid related Thrombocytopenia Follow CBC in AM. ID: Monitor for infection FEN: Hypophosphatemia 4 doses of Neutra-Phos. Recheck in a.m. MSK: PT evaluate and treat Access - Utilize peripheral IV. Central if indicated Prophylaxis - GI - Pepcid - DVT - SCD/Lovenox subcutaneous Critical Care: The total critical care time was 35 minutes. Time to perform other separately billable procedures was not included in the critical care time. Resp iratory failure - intubated for an airway protection - continue mechanical ventilation until angioedema resoles - ABG/CXR a.m. Angioedema - ACEi related ?? - Steroids, H1, H2 - supportive care HTN - Hydralazine PRN - goal SBT < 150 - Resume home meds except Lisinopril Nutrition - TF DVT/GI prophylaxis - Lovenox/Pepcid Critical Care: The total critical care time was 35 minutes. Time to perform other separately billable procedures was not included in the critical care time. Problem Qualifiers (1) Angioedema: Qualified Code: T78.3XXA - Angioedema, initial encounter Robb Seymour MD Jun 30, 2016 12:11
[2016-06-30] MEDS ORDERED: DEXMEDETOMIDINE INJ 50 ML IV SCH (13:30)
[2016-06-30 14:37] LABS: HEMATOCRIT 33.4 % (35.0-46.0); MEAN CELL VOLUME 99.1 FL (80.0-100.0); MEAN CORPUSCULAR HEMOGLOBIN 32.1 PG (27.0-34.0); MEAN CORPUSCULAR HGB CONC 32.4 % (32.0-36.0); PLATELET COUNT 138 TH/MM3 (150-450); RED BLOOD COUNT 3.37 MIL/MM3 (4.00-5.30); RED CELL DISTRIBUTION WIDTH 13.7 % (11.6-17.2); REVIEW FLAG FINAL; WHITE BLOOD COUNT 18.7 TH/MM3 (4.0-11.0)
[2016-06-30 14:53] LABS: BICARBONATE 28.3 MEQ/L (21.0-32.0); POTASSIUM 4.7 MEQ/L (3.5-5.1)
--- NOTE | 2016-06-30 15:07 | RADRPT ---
EXAM DATE/TIME: 06/30/2016 12:05 [facility] COMPARISON: No previous studies available for comparison. INDICATIONS : Swollen tongue. RADIATION DOSE: 23.09 CTDIvol (mGy) MEDICAL HISTORY : Cardiovascular disease. Hypertension. SURGICAL HISTORY : None. ENCOUNTER: Initial ACUITY: 1 day PAIN SCORE: 5/10 LOCATION: cranial TECHNIQUE: Volumetric scanning of the neck was performed. Using automated exposure control and adjustment of th e mA and/or kV according to patient size, radiation dose was kept as low as reasonably achievable to obtain optimal diagnostic quality images. FINDINGS: Intracranial structures demonstrate no acute finding. There is mild periventricular white matter low attenuation. The globes demonstrate no abnormality. There has been prior bilateral cataract surgery. Visualized paranasal sinuses and mastoid air cells are clear. Patient is intubated a nasogastric tube is present. Tongue appears prominent but no definite abnormality is seen. Oropharyngeal airway is mi ldly narrowed. Epiglottis is not well visualized. No definite mass is appreciated on this noncontrast examination. Parotid and submandibular glands demonstrate no abnormality. No lymphadenopathy is seen . Thyroid is heterogeneous in density but no mass is appreciated. Upper lung zones demonstrate no acu te finding. CONCLUSION: The tongue is prominent the but no focal abnormality is appreciated. There is mild narrowing of the o ropharyngeal airway. Patient is intubated and nasogastric tube is present. On this noncontrast examin ation the appreciated a mass or abscess. Rhett Servin MD on June 30, 2016 at 14:58 Board Certified Radiologist. This report was verified electronically.
[2016-06-30] MEDS: ENOXAPARIN SODIUM 30 MG/0.3 ML SYRINGE SQ SCH (20:36)
[2016-07-01] VITALS (17 sets, daily range): BP systolic 108–157; BP diastolic 57–91; PULSE 58–142; RESP 14–18; TEMP 97.6–98.4; O2SAT 92–99
[2016-07-01] MEDS: RESP: ALBUTEROL 2.5 MG/IPRATROPIUM 0.5 MG NEB (SCH) INH ×6 (03:29→23:21)
[2016-07-01] MEDS ORDERED: DILTIAZEM HCL 25 MG/5 ML VIAL IV SCH (03:30)
[2016-07-01] MEDS: CHLORHEXIDINE GLUCONATE 2 % 1 PACK (2 CLOTHS) TOP SCH (04:00)
[2016-07-01] MEDS ORDERED: DILTIAZEM HCL 25 MG/5 ML VIAL IV PRN (04:00)
--- NOTE | 2016-07-01 04:47 | RADRPT ---
EXAM DATE/TIME: 07/01/2016 04:02 [facility] COMPARISON: CHEST SINGLE AP, June 29, 2016, 6:08. INDICATIONS : Shortness of breath, possible pulmonary disease. MEDICAL HISTORY : None. SURGICAL HISTORY : None. ENCOUNTER: Subsequent ACUITY: 4 - 6 days PAIN SCORE: Non-responsive. LOCATION: Bilateral chest FINDINGS: Endotracheal tube tip well above the greg. Gastric tube traverses the [id number]. There is per sisting consolidation in the retrocardiac left lower lung which causes loss of delineation of the med ial left hemidiaphragm. The right lung is clear. The heart is normal size. CONCLUSION: Interval development of atelectasis or consolidation in the medial left lower lung. Carlos Uribe MD on July 01, 2016 at 4:45 Board Certified Radiologist. This report was verified electronically.
[2016-07-01 05:21] LABS: MEAN CELL VOLUME 98.3 FL (80.0-100.0); MEAN CORPUSCULAR HEMOGLOBIN 32.1 PG (27.0-34.0); MEAN CORPUSCULAR HGB CONC 32.7 % (32.0-36.0); PLATELET COUNT 142 TH/MM3 (150-450); RED BLOOD COUNT 3.56 MIL/MM3 (4.00-5.30); RED CELL DISTRIBUTION WIDTH 13.4 % (11.6-17.2); REVIEW FLAG FINAL; WHITE BLOOD COUNT 17.9 TH/MM3 (4.0-11.0)
[2016-07-01] MEDS: diphenhydrAMINE HCL 50 MG/ML VIAL IV PUSH SCH ×3 (05:30→18:25)
[2016-07-01] MEDS: POTASSIUM PHOSPHATE/SODIUM PHOSPHATE 250 MG TAB PO SCH (05:30)
[2016-07-01] MEDS: SODIUM CHLOR 0.9% 1000 ML INJ 1,000 ML IV SCH ×2 (05:31→18:06)
[2016-07-01 05:45] LABS: BICARBONATE 25.8 MEQ/L (21.0-32.0); MAGNESIUM 2.2 MG/DL (1.5-2.5); POTASSIUM 4.3 MEQ/L (3.5-5.1)
[2016-07-01] MEDS: INSULIN NovoLIN REGULAR SUPPLEMENTAL SCALE SQ SCH ×4 (06:14→20:23)
[2016-07-01] MEDS: DOCUSATE SODIUM 100 MG/10 ML UDC G-TUBE SCH ×2 (08:26→20:22)
[2016-07-01] MEDS: methylPREDNISolone SOD SUCC 125 MG/2 ML VIAL IV PUSH SCH ×2 (08:26→20:22)
[2016-07-01] MEDS: SENNOSIDES SYRUP 8.8 MG/5 ML CUP PO SCH ×2 (08:26→20:22)
[2016-07-01] MEDS: FAMOTIDINE 20 MG/2 ML VIAL IV PUSH SCH ×2 (08:29→20:22)
[2016-07-01] MEDS: SODIUM CHLORIDE 0.9% FLUSH 5 ML FLUSH IV FLUSH SCH ×2 (08:29→20:23)
[2016-07-01] MEDS: ARTIFICIAL TEARS OPTH SOLN 15 ML BTL EACH EYE SCH ×3 (12:51→18:00)
[2016-07-01] MEDS ORDERED: DILTIAZEM HCL 25 MG/5 ML VIAL IV ONE ×2 (13:15→20:15)
[2016-07-01] MEDS ORDERED: FUROSEMIDE 40 MG/4 ML VIAL IV PUSH ONE (13:15)
[2016-07-01] MEDS ORDERED: METOPROLOL TARTRATE 5 MG/5 ML VIAL IV PUSH ONE ×2 (13:15→18:15)
[2016-07-01] MEDS: MAGNESIUM SULFATE 1 GM PREMIX 100 ML IV SCH ×2 (13:23→14:44)
[2016-07-01] MEDS ORDERED: METOPROLOL TARTRATE 5 MG/5 ML VIAL ONE (17:53)
[2016-07-01] MEDS ORDERED: HYDROmorphone HCL PF 1 MG/ML VIAL IV PUSH PRN (18:15)
--- NOTE | 2016-07-01 18:19 | HHI.CCPN ---
Subjective Remarks/Hospital Course 80 year old female HTN on lisinopril presents to the ED with swelling in tongue since 4pm today. She also had lip swelling 2 days ago that resolved on its own so she did not seek medical attention. Her edema was getting worse and she was intubated in the ED by ER attending. 06/29: Sedated on the ventilator. Afebrile. Bradycardic. Hemodynamically appears to be stable. Her tongue continues to protrude from mouth. On Versed and fentanyl drips and sedated. SUBJECTIVE: 06/30: Afebrile. Her angioedema of her tongue appears to be improving. Plan for CT neck to better define. Possible extubation today. Awake and alert and following commands. No bowel movement. Tolerating tube feeding. 07/01: afebrile. doing well. large cuff leak this afternoon. Afib RVR overnight. appears hypervolemic. Objective Vital Signs Date Time Temp Pulse Resp B/P Pulse Ox O2 Delivery O2 Flow Rate FiO2 07/01/16 16:00 93 07/01/16 16:00 35 07/01/16 14:35 92 07/01/16 12:00 97.6 16 115/91 06/28/16 23:34 Auto-Vent 06/28/16 18:35 2.00 Intake and Output 06/30/16 06/30/16 07/01/16 08:00 16:00 00:00 Intake Total 970 ml 2083 ml 951 ml Output Total 225 ml 700 ml 450 ml Balance 745 ml 1383 ml 501 ml Result Diagram: 07/01/16 0506 07/01/16 0506 Other Results Microbiology Date/Time Procedure Status Source Growth 06/29/16 18:00 Urine Culture - Final Complete Urine Clean Catch <10,000 CFU/ML GRAM POSITIVE SREEKANTH Imaging Last Impressions Chest X-Ray 06/29/16 0600 Signed Impressions: Service Date/Time: Wednesday, June 29, 2016 06:08 - CONCLUSION: No acute cardiopulmonary disease. Cristina Youssef MD Objective Remarks GENERAL: 80-year-old female, well-nourished and well-developed critically ill and currently orotracheally intubated SKIN: Warm and dry. No rash HEAD: Normocephalic. EYES: PERRL 2 mm b/l and reactive. No scleral icterus. No injection or drainage. N/T: Tongue no longer protrudes from mouth. Less swelling noted. Orotracheally intubated. NECK: Supple, trachea midline. No JVD or lymphadenopathy. CARDIOVASCULAR: Bradycardic, RR. S1, S2. No S4. Currently without murmurs, gallops, or rubs. RESPIRATORY: Breath sounds equal bilaterally. No accessory muscle use. GASTROINTESTINAL: Abdomen soft, non-tender, nondistended. Active bowel sounds MUSCULOSKELETAL: No significant peripheral edema. BACK: Nontender without obvious deformity. No CVA tenderness. A/P Problem List: (1) Angioedema ICD Code: T78.3XXA Status: Acute (2) Dyslipidemia ICD Code: E78.5 Status: Acute (3) HTN (hypertension) ICD Code: I10 Status: Acute (4) Respiratory failure ICD Code: J96.90 Status: Acute Assessment and Plan Assessment: 80yF with angioedema, now with improved swelling. good cuff leak. I think it is safe to extubate the patient. for her afib RVR, we will continued IV diuresis for probable intrasvascular volume overload. rate control with diltiazem po. Neuro/Psych: Patient is currently on Versed/fentanyl drips for sedation/analgesia while intubated Goal RASS 0 Daily sedation vacation will proceed with extubation and oxycodone and dilaudid as needed for pain. CV: Sinus bradycardia History of hypertension History dyslipidemia SL IVF. Currently not requiring antihypertensives and/or vasopressors. Discontinue lisinopril. Possibly J CARLOS-induced angioedema Checking complements As needed hydralazine for hypertension. Holding spironolactone 25 mg by mouth daily for hypertension. Holding Lipitor 10 mg daily/fish oil 1000 mg/niacin 500 mg daily with aspirin 81 mg daily by mouth daily dyslipidemia. Resume when clinically indicated Lisinopril added as an allergy. Resp: Acute respiratory failure secondary to angioedema Passed SBT. will extubate. Scheduled bronchodilator therapy every 4 hours and as needed wean o2 by NC for goal spo2 > 92% EZ-PAP, Acapella, I.S. to bedside. OOB to chair PT consult. GI: Patient is currently on Jevity 1.5 goal 55 cc an hour for nutrition Pepcid 20 mg IV twice a day for GI prophylaxis Colace/Senokot twice a day for bowel regimen : Nicolette has been placed for accurate I's and O's in a critically ill patient. Endo: Hyperglycemia - critical illness/steroid-induced History of hypothyroidism? Sliding-scale insulin with Accu-Cheks every 6 hours to maintain euglycemia. Low regimen. TSH within normal limits Renal: Monitor urine output Accurate I/O's. Lasix 80mg iv x 1. aggressively replace electrolytes. Heme: Normocytic anemia Leukocytosis - likely steroid related Thrombocytopenia Follow CBC in AM. ID: Monitor for infection FEN: Hypophosphatemia- resolved. MSK: PT evaluate and treat Access - Utilize peripheral IV. Central if indicated Prophylaxis - GI - Pepcid - DVT - SCD/Lovenox subcutaneous Problem Qualifiers (1) Angioedema: Qualified Code: T78.3XXA - Angioedema, initial encounter Jared Mahajan MD Jul 01, 2016 18:19
[2016-07-01] MEDS: DILTIAZEM HCL 60 MG TAB PO SCH (19:15)
[2016-07-01] MEDS: ENOXAPARIN SODIUM 30 MG/0.3 ML SYRINGE SQ SCH (20:22)
[2016-07-01 20:46] LABS: BICARBONATE 28.4 MEQ/L (21.0-32.0); MAGNESIUM 2.3 MG/DL (1.5-2.5); POTASSIUM 3.7 MEQ/L (3.5-5.1)
[2016-07-02] VITALS (11 sets, daily range): BP systolic 126–156; BP diastolic 59–84; PULSE 69–133; RESP 16–28; TEMP 98–98.9; O2SAT 95–99
[2016-07-02] MEDS ORDERED: DILTIAZEM 125 MG/NS 100 ML IV SCH ×2 (00:30)
[2016-07-02] MEDS: DILTIAZEM HCL 60 MG TAB PO SCH ×4 (00:49→18:00)
[2016-07-02] MEDS: CHLORHEXIDINE GLUCONATE 2 % 1 PACK (2 CLOTHS) TOP SCH (00:49)
[2016-07-02] MEDS: diphenhydrAMINE HCL 50 MG/ML VIAL IV PUSH SCH ×4 (00:49→21:02)
[2016-07-02] MEDS ORDERED: METOPROLOL TARTRATE 5 MG/5 ML VIAL IV PUSH ONE (01:45)
[2016-07-02] MEDS ORDERED: DIGOXIN 0.5 MG/2 ML VIAL IV PUSH ONE (01:45)
[2016-07-02] MEDS: RESP: ALBUTEROL 2.5 MG/IPRATROPIUM 0.5 MG NEB (SCH) INH ×2 (03:08→08:00)
[2016-07-02] MEDS: INSULIN NovoLIN REGULAR SUPPLEMENTAL SCALE SQ SCH ×2 (06:07→11:00)
[2016-07-02] MEDS ORDERED: AMIODARONE INJ 450 MG in DEXTROSE 5% IN WATE(EXCEL) INJ 241 ML IV SCH ×2 (06:45)
[2016-07-02] MEDS ORDERED: AMIODARONE INJ 150 MG in DEXTROSE 5% IN WATER 100ML INJ 97 ML IV ONE ×2 (06:45)
[2016-07-02 07:58] LABS: HEMATOCRIT 38.4 % (35.0-46.0); MEAN CELL VOLUME 96.6 FL (80.0-100.0); MEAN CORPUSCULAR HEMOGLOBIN 32.1 PG (27.0-34.0); MEAN CORPUSCULAR HGB CONC 33.2 % (32.0-36.0); PLATELET COUNT 164 TH/MM3 (150-450); RED BLOOD COUNT 3.97 MIL/MM3 (4.00-5.30); RED CELL DISTRIBUTION WIDTH 13.3 % (11.6-17.2); REVIEW FLAG FINAL
[2016-07-02 08:39] LABS: BICARBONATE 28.5 MEQ/L (21.0-32.0); POTASSIUM 3.6 MEQ/L (3.5-5.1)
[2016-07-02] MEDS: SODIUM CHLORIDE 0.9% FLUSH 5 ML FLUSH IV FLUSH SCH ×2 (09:00→21:02)
[2016-07-02] MEDS: methylPREDNISolone SOD SUCC 125 MG/2 ML VIAL IV PUSH SCH ×2 (09:00→21:01)
[2016-07-02] MEDS: ARTIFICIAL TEARS OPTH SOLN 15 ML BTL EACH EYE SCH ×3 (09:00→18:00)
[2016-07-02] MEDS: FAMOTIDINE 20 MG/2 ML VIAL IV PUSH SCH ×2 (09:00→21:02)
[2016-07-02] MEDS ORDERED: FUROSEMIDE 40 MG/4 ML VIAL IV PUSH ONE (10:30)
[2016-07-02] MEDS ORDERED: MAGNESIUM SULFATE 1 GM PREMIX 100 ML IV SCH (11:00)
[2016-07-02] MEDS: POTASSIUM CHLOR 20 MEQ PREMIX 100 ML IV SCH ×2 (11:00→15:00)
[2016-07-02 11:29] LABS: MAGNESIUM 2.2 MG/DL (1.5-2.5)
[2016-07-02] MEDS: SENNOSIDES 8.6 MG TAB PO SCH ×2 (14:00→21:02)
[2016-07-02] MEDS: DOCUSATE SODIUM 100 MG CAP PO SCH ×2 (14:00→21:02)
[2016-07-02] MEDS: APIXABAN 5 MG TABLET PO SCH (21:03)
[2016-07-02] MEDS: METOPROLOL TARTRATE 25 MG TAB PO SCH (21:03)
--- NOTE | 2016-07-02 22:25 | HHI.CCPN ---
Subjective Remarks/Hospital Course 80 year old female HTN on lisinopril presents to the ED with swelling in tongue since 4pm today. She also had lip swelling 2 days ago that resolved on its own so she did not seek medical attention. Her edema was getting worse and she was intubated in the ED by ER attending. 06/29: Sedated on the ventilator. Afebrile. Bradycardic. Hemodynamically appears to be stable. Her tongue continues to protrude from mouth. On Versed and fentanyl drips and sedated. SUBJECTIVE: 06/30: Afebrile. Her angioedema of her tongue appears to be improving. Plan for CT neck to better define. Possible extubation today. Awake and alert and following commands. No bowel movement. Tolerating tube feeding. 07/01: afebrile. doing well. large cuff leak this afternoon. Afib RVR overnight. appears hypervolemic. 07/02: extubated yesterday and doing well. afib RVR persists. received dilt and metoprolol overnight, with 1 dose of digoxin. per the patient, she thinks this is old atrial fibrillation and not new and she has had periods of palpitations for years. Objective Vital Signs Date Time Temp Pulse Resp B/P Pulse Ox O2 Delivery O2 Flow Rate FiO2 07/02/16 21:52 99 21 07/02/16 18:28 90 07/02/16 16:00 98.7 28 156/65 07/01/16 20:10 Nasal Cannula 4.00 Intake and Output 07/01/16 07/01/16 07/02/16 08:00 16:00 00:00 Intake Total 1230 ml 1330 ml 150 ml Output Total 400 ml 1300 ml 1000 ml Balance 830 ml 30 ml -850 ml Result Diagram: 07/02/1672707/02/162054 Imaging Last Impressions Chest X-Ray 06/29/16 0600 Signed Impressions: Service Date/Time: Wednesday, June 29, 2016 06:08 - CONCLUSION: No acute cardiopulmonary disease. Cristina Youssef MD Objective Remarks GENERAL: 80-year-old female, lying in bed. SKIN: Warm and dry. No rash HEAD: Normocephalic. EYES: PERRL 2 mm b/l and reactive. No scleral icterus. No injection or drainage. N/T: Tongue no longer protrudes from mouth. Less swelling noted NECK: Supple, trachea midline. No JVD or lymphadenopathy. CARDIOVASCULAR: tachycardic, irregularly irregular S1, S2. No S4. Currently without murmurs, gallops, or rubs. RESPIRATORY: Breath sounds equal bilaterally. No accessory muscle use. GASTROINTESTINAL: Abdomen soft, non-tender, nondistended. Active bowel sounds MUSCULOSKELETAL: No significant peripheral edema. BACK: Nontender without obvious deformity. No CVA tenderness. A/P Problem List: (1) Angioedema ICD Code: T78.3XXA Status: Acute (2) Dyslipidemia ICD Code: E78.5 Status: Acute (3) HTN (hypertension) ICD Code: I10 Status: Acute (4) Respiratory failure ICD Code: J96.90 Status: Acute Assessment and Plan Assessment: 80yF with angioedema, now with improved swelling. extubated yesterday. now in afib RVR, but this may be paroxysmal afib and not new-onset. will start amiodarone to help with rate control, and continue aggressive electrolyte replacement and diuresis. will consult cardiology for assitance in management of her afib. we will continue to normalize her and work towards getting her out of the icu in the near future if her afib is controlled. Neuro/Psych: Goal RASS 0 tylenol, oxy as needed for pain. CV: atrial fibrillation with rapid ventricular response History of hypertension History dyslipidemia SL IVF. Currently not requiring antihypertensives and/or vasopressors. Off lisinopril. Possibly J CARLOS-induced angioedema As needed hydralazine for hypertension. Holding spironolactone 25 mg by mouth daily for hypertension. Holding Lipitor 10 mg daily/fish oil 1000 mg/niacin 500 mg daily with aspirin 81 mg daily by mouth daily dyslipidemia. Resume when clinically indicated Lisinopril added as an allergy. --cardizem 60 po q6h --diltiazem drip --amio bolus and drip --cards consult --aggressive electrolyte replacement --lasix 40mg iv x 1. Resp: Acute respiratory failure secondary to angioedema- resolved. Scheduled bronchodilator therapy every 4 hours and as needed wean o2 by NC for goal spo2 > 92% EZ-PAP, Acapella, I.S. to bedside. OOB to chair PT consult. GI: heart healthy diet as tolerated. Pepcid 20 mg IV twice a day for GI prophylaxis Colace/Senokot twice a day for bowel regimen : Will has been placed for accurate I's and O's in a critically ill patient. diuresis for volume overload as above. Endo: Hyperglycemia - critical illness/steroid-induced History of hypothyroidism? Sliding-scale insulin with Accu-Cheks every 6 hours to maintain euglycemia. Low regimen. TSH within normal limits Renal: Monitor urine output Accurate I/O's. Lasix 40mg iv x 1. aggressively replace electrolytes. Heme: Normocytic anemia Leukocytosis - likely steroid related Thrombocytopenia Follow CBC in AM. ID: Monitor for infection FEN: Hypophosphatemia- resolved. MSK: PT evaluate and treat Access - Utilize peripheral IV. Central if indicated Prophylaxis - GI - Pepcid - DVT - SCD/Lovenox subcutaneous Dispo: likely transfer to hospitalist service and possibly out of ICU tomorrow. Problem Qualifiers (1) Angioedema: Qualified Code: T78.3XXA - Angioedema, initial encounter Jared Mahajan MD Jul 02, 2016 22:25
[2016-07-03] VITALS (11 sets, daily range): BP systolic 121–155; BP diastolic 60–86; PULSE 76–160; RESP 20–22; TEMP 96.8–98.4; O2SAT 92–96
[2016-07-03] MEDS: DILTIAZEM HCL 60 MG TAB PO SCH ×2 (00:39→06:36)
[2016-07-03] MEDS: diphenhydrAMINE HCL 50 MG/ML VIAL IV PUSH SCH ×4 (01:45→21:10)
[2016-07-03] MEDS: CHLORHEXIDINE GLUCONATE 2 % 1 PACK (2 CLOTHS) TOP SCH ×2 (04:00→21:11)
[2016-07-03 06:03] LABS: HEMATOCRIT 39.8 % (35.0-46.0); MEAN CELL VOLUME 97.4 FL (80.0-100.0); MEAN CORPUSCULAR HEMOGLOBIN 32.1 PG (27.0-34.0); PLATELET COUNT 171 TH/MM3 (150-450); RED BLOOD COUNT 4.08 MIL/MM3 (4.00-5.30); RED CELL DISTRIBUTION WIDTH 13.3 % (11.6-17.2); REVIEW FLAG FINAL; WHITE BLOOD COUNT 14.8 TH/MM3 (4.0-11.0)
[2016-07-03 06:21] LABS: BICARBONATE 30.5 MEQ/L (21.0-32.0); POTASSIUM 3.8 MEQ/L (3.5-5.1)
--- NOTE | 2016-07-03 08:13 | MB ---
cc: NICKI LASSITER DATE OF CONSULTATION 07/02/2016 HISTORY OF PRESENT ILLNESS Ms. Atwood is an 80-year-old female with a history of hypertension, dyslipidemia, thyroid disease. She presented with tongue swelling on 06/28 which was attributed to lisinopril. She was in respiratory distress and was urgently intubated. She is now extubated with improvement with her angioedema. She has had no chest pain, shortness of breath, dizziness or lightheadedness. She developed atrial fibrillation during her hospitalization with rapid ventricular response. Her rate is now better controlled with diltiazem. She saw a project controls specialist the last time about 7 years ago. Her family physician is Dr. Valerio. PAST MEDICAL HISTORY Positive for - 1. Dyslipidemia. 2. Hypertension. 3. Thyroid disease. 4. History of appendectomy. MEDICATIONS AT HOME 1. Lipitor. 2. Spironolactone. 3. Lisinopril. 4. Aspirin. 5. Niacin. 6. B-12. 7. Fish oil. 8. Probiotic. ALLERGIES No previous medical allergies. LISINOPRIL - The patient now likely developed angioedema with lisinopril SOCIAL HISTORY The patient does not smokes. She does not drink alcohol. She is accompanied by her son and her daughter. FAMILY HISTORY Positive for coronary artery disease in her sister and atrial fibrillation in her son. REVIEW OF SYSTEMS Otherwise negative. PHYSICAL EXAMINATION VITAL SIGNS: Blood pressure 147/60, pulse 140 and irregular. HEENT: Negative. NECK: 2+ carotid upstrokes. No bruits. LUNGS: Clear. HEART: Regular. No murmur, gallop or rub. ABDOMEN: Soft. No bruits. EXTREMITIES: Without edema. 2+ distal pulses. NEUROLOGIC: Grossly nonfocal. CARDIOLOGY STUDIES Telemetry shows atrial fibrillation with rapid ventricular response. LABS Potassium 3.6, creatinine 0.7. Troponin 0.02. TSH 0.6. DIAGNOSES 1. Paroxysmal atrial fibrillation with rapid ventricular response. 2. Angioedema likely secondary to J CARLOS inhibitor. 3. Hypertension. 4. Dyslipidemia. 5. Thyroid disease. DISPOSITION 1. Ms. Atwood will be monitored on telemetry. 2. We will continue p.o. diltiazem for rate control. 3. We will add metoprolol 25 mg twice per day which can be titrated. 4. We will discontinue amiodarone at this time. 5. The patient will be anticoagulated with Eliquis 5 mg twice per day which will be started tonight. 6. She can be discharged home once her rate is well controlled. 7. I will see her back for followup in our office after discharge. The plan was discussed with the patient and her family. MD ANEL Kumari/CATRACHITA /6:50 PM /7:49 AM KERWIN
[2016-07-03] MEDS: APIXABAN 5 MG TABLET PO SCH ×2 (09:00→21:10)
[2016-07-03] MEDS: METOPROLOL TARTRATE 25 MG TAB PO SCH ×2 (09:00→21:10)
[2016-07-03] MEDS: FAMOTIDINE 20 MG/2 ML VIAL IV PUSH SCH ×2 (09:00→21:10)
[2016-07-03] MEDS: methylPREDNISolone SOD SUCC 125 MG/2 ML VIAL IV PUSH SCH ×2 (09:00→21:09)
[2016-07-03] MEDS: ARTIFICIAL TEARS OPTH SOLN 15 ML BTL EACH EYE SCH ×3 (09:00→18:00)
[2016-07-03] MEDS: DOCUSATE SODIUM 100 MG CAP PO SCH ×2 (09:00→21:00)
[2016-07-03] MEDS: SENNOSIDES 8.6 MG TAB PO SCH ×2 (09:00→21:00)
[2016-07-03] MEDS: SODIUM CHLORIDE 0.9% FLUSH 5 ML FLUSH IV FLUSH SCH ×2 (09:00→21:10)
--- NOTE | 2016-07-03 18:39 | HHI.PR ---
Subjective Remarks Patient denies cp/sob telemetry shows heartt rate in the 160's denies fevers/chills denies tongue swelling Objective Vitals Vital Signs Date Time Temp Pulse Resp B/P Pulse Ox O2 Delivery O2 Flow Rate FiO2 07/03/16 16:00 139 07/03/16 16:00 98.2 155 22 140/84 96 07/03/16 10:00 90 07/03/16 08:00 98.4 91 20 122/60 94 07/03/16 08:00 92 07/03/16 06:00 87 07/03/16 04:00 98.0 78 20 121/61 92 07/03/16 04:00 78 07/03/16 02:00 76 07/03/16 00:00 96.8 80 20 153/72 94 07/03/16 00:00 80 07/02/16 22:00 69 07/02/16 21:52 99 21 07/02/16 20:00 98.0 119 20 152/67 95 07/02/16 20:00 119 I/O 07/02/16 07/02/16 07/02/16 07/03/16 07/03/16 07/03/16 07:00 15:00 23:00 07:00 15:00 23:00 Intake Total 600 ml 783 ml 1059 ml 315 ml 550 ml Output Total 1000 ml 3500 ml 4200 ml 1550 ml 2300 ml Balance -400 ml -2717 ml -3141 ml -1235 ml -1750 ml Intake Oral 600 ml 450 ml 775 ml 250 ml 525 ml IV Total 333 ml 284 ml 65 ml 25 ml Output Urine Total 1000 ml 3500 ml 4200 ml 1550 ml 2300 ml # Bowel Movements 0 0 0 0 Result Diagram: 07/03/16 0516 07/03/16 0516 Imaging Last Impressions Chest X-Ray 07/01/16 0600 Signed Impressions: Service Date/Time: Friday, July 01, 2016 04:02 - CONCLUSION: Interval development of atelectasis or consolidation in the medial left lower lung. Carlos Uribe MD Neck CT 06/30/16 0000 Signed Impressions: Service Date/Time: Thursday, June 30, 2016 12:05 - CONCLUSION: The tongue is prominent the but no focal abnormality is appreciated. There is mild narrowing of the oropharyngeal airway. Patient is intubated and nasogastric tube is present. On this noncontrast examination the appreciated a mass or abscess. Rhett Servin MD Objective Remarks GENERAL: 80-year-old female, sitiing up in bed SKIN: Warm and dry. No rash HEAD: Normocephalic. EYES: PERRL 2 mm b/l and reactive. No scleral icterus. No injection or drainage. N/T: Tongue no longer protrudes from mouth. Less swelling noted NECK: Supple, trachea midline. No JVD or lymphadenopathy. CARDIOVASCULAR: tachycardic, irregularly irregular S1, S2. No S4. Currently without murmurs, gallops, or rubs. RESPIRATORY: Breath sounds equal bilaterally. No accessory muscle use. GASTROINTESTINAL: Abdomen soft, non-tender, nondistended. Active bowel sounds MUSCULOSKELETAL: No significant peripheral edema. BACK: Nontender without obvious deformity. No CVA tenderness. A/P Assessment and Plan Assessment: 80yF with angioedema, now with improved swelling. extubated yesterday. now in afib RVR, but this may be paroxysmal afib and not new-onset. will start amiodarone to help with rate control, and continue aggressive electrolyte replacement and diuresis. will consult cardiology for assitance in management of her afib. we will continue to normalize her and work towards getting her out of the icu in the near future if her afib is controlled. Neuro/Psych: Goal RASS 0 tylenol, oxy as needed for pain. CV: atrial fibrillation with rapid ventricular response History of hypertension History dyslipidemia SL IVF. Currently not requiring antihypertensives and/or vasopressors. Off lisinopril. Possibly J CARLOS-induced angioedema As needed hydralazine for hypertension. Holding spironolactone 25 mg by mouth daily for hypertension. Holding Lipitor 10 mg daily/fish oil 1000 mg/niacin 500 mg daily with aspirin 81 mg daily by mouth daily dyslipidemia. Resume when clinically indicated Lisinopril added as an allergy. 07/03 IV cardizem discontinued. Oral cardizem was continued and metoprolol added however hearet rate still increased. Dose of oral cardizem increased. Patient able to be discharged once rate is controlled. Patient also started on Eliquis for chronic anticoagulation. Ordered oral dose of cardizem to be given now since patient with afib w RVR. Resp: Acute respiratory failure secondary to angioedema- resolved. Scheduled bronchodilator therapy every 4 hours and as needed wean o2 by NC for goal spo2 > 92% EZ-PAP, Acapella, I.S. to bedside. OOB to chair PT consult. GI: heart healthy diet as tolerated. Pepcid 20 mg IV twice a day for GI prophylaxis Colace/Senokot twice a day for bowel regimen : Will has been placed for accurate I's and O's in a critically ill patient. diuresis for volume overload as above. Endo: Hyperglycemia - critical illness/steroid-induced History of hypothyroidism? Sliding-scale insulin with Accu-Cheks every 6 hours to maintain euglycemia. Low regimen. TSH within normal limits Renal: Monitor urine output Accurate I/O's. sp Lasix 40mg iv x 1. aggressively replace electrolytes. Heme: Normocytic anemia Leukocytosis - likely steroid related Thrombocytopenia Follow CBC in AM. ID: Monitor for infection FEN: Hypophosphatemia- resolved. MSK: PT evaluate and treat Access - Utilize peripheral IV. Central if indicated Prophylaxis - GI - Pepcid - DVT - SCD/Lovenox subcutaneous Discharge Planning continue to monitor in the icu - discussed with RN Ceasar Barba MD Jul 03, 2016 18:39
[2016-07-03] MEDS: DILTIAZEM-CD 180 MG CAP ER PO SCH ×2 (18:45→21:10)
[2016-07-03] MEDS ORDERED: DILTIAZEM-CD 180 MG CAP ER PO SCH (21:00)
[2016-07-04] VITALS (8 sets, daily range): BP systolic 102–135; BP diastolic 55–71; PULSE 70–102; RESP 16–27; TEMP 97.5–98.3; O2SAT 94–96
[2016-07-04] MEDS: diphenhydrAMINE HCL 50 MG/ML VIAL IV PUSH SCH ×2 (02:23→06:39)
[2016-07-04 06:28] LABS: HEMATOCRIT 42.3 % (35.0-46.0); MEAN CELL VOLUME 96.6 FL (80.0-100.0); MEAN CORPUSCULAR HEMOGLOBIN 32.1 PG (27.0-34.0); MEAN CORPUSCULAR HGB CONC 33.3 % (32.0-36.0); PLATELET COUNT 189 TH/MM3 (150-450); RED BLOOD COUNT 4.38 MIL/MM3 (4.00-5.30); RED CELL DISTRIBUTION WIDTH 13.3 % (11.6-17.2); REVIEW FLAG FINAL; WHITE BLOOD COUNT 12.1 TH/MM3 (4.0-11.0)
[2016-07-04 06:53] LABS: BICARBONATE 30.1 MEQ/L (21.0-32.0); POTASSIUM 3.6 MEQ/L (3.5-5.1)
[2016-07-04] MEDS: DOCUSATE SODIUM 100 MG CAP PO SCH (09:00)
[2016-07-04] MEDS: SENNOSIDES 8.6 MG TAB PO SCH (09:00)
[2016-07-04] MEDS: FAMOTIDINE 20 MG/2 ML VIAL IV PUSH SCH (09:14)
[2016-07-04] MEDS: methylPREDNISolone SOD SUCC 125 MG/2 ML VIAL IV PUSH SCH (09:14)
[2016-07-04] MEDS: SODIUM CHLORIDE 0.9% FLUSH 5 ML FLUSH IV FLUSH SCH (09:14)
[2016-07-04] MEDS: METOPROLOL TARTRATE 25 MG TAB PO SCH (09:14)
[2016-07-04] MEDS: ARTIFICIAL TEARS OPTH SOLN 15 ML BTL EACH EYE SCH (09:14)
[2016-07-04] MEDS: APIXABAN 5 MG TABLET PO SCH (09:15)
[2016-07-04] MEDS: DILTIAZEM-CD 180 MG CAP ER PO SCH (09:15)
[2016-07-04] MEDS ORDERED: EPIP0.3I SQ (12:38)
[2016-07-04] MEDS ORDERED: CARD180C5 PO (12:38)
[2016-07-04] MEDS ORDERED: APIX5TAB PO (12:38)
[2016-07-04] MEDS ORDERED: METO25TA3 PO (12:38)
--- NOTE | 2016-07-04 12:40 | HHI.DCPOC ---
Discharge Care Plan Diagnosis: (1) Angioedema (2) Respiratory failure (3) HTN (hypertension) (4) Dyslipidemia Goals to Promote Your Health * To prevent worsening of your condition and complications * To maintain your health at the optimal level Directions to Meet Your Goals Take your medications as prescribed Follow your dietary instruction Follow activity as directed Keep your appointments as scheduled Take your immunizations and boosters as scheduled If your symptoms worsen call your PCP, if no PCP go to Urgent Care Center or Emergency Room Smoking is Dangerous to Your Health. Avoid second hand smoke Call the 24-hour hour crisis hotline for domestic abuse at Ceasar Barba MD Jul 04, 2016 12:40
--- NOTE | 2016-07-04 12:48 | HHI.DS ---
Discharge Summary Admission Date Jun 28, 2016 at 18:53 Discharge Date: Jul 04, 2016 Admitting Diagnosis Anaphylaxis (1) Anaphylactic reaction ICD Code: T78.2XXA Diagnosis: Principal (2) Angioedema ICD Code: T78.3XXA Diagnosis: Principal (3) Respiratory failure ICD Code: J96.90 Diagnosis: Principal (4) HTN (hypertension) ICD Code: I10 Diagnosis: Principal (5) Dyslipidemia ICD Code: E78.5 Diagnosis: Secondary (6) Atrial fibrillation with RVR ICD Code: I48.91 Diagnosis: Principal Procedures none Brief History - From Admission 80 year old female HTN on lisinopril presents to the ED with swelling in tongue since 4pm today. She also had lip swelling 2 days ago that resolved on its own so she did not seek medical attention. Her edema was gettring worse and she was intubated in the ED by ER attending. CBC/BMP: 07/04/16 0558 07/04/16 0558 Significant Findings Laboratory Tests Test 07/01/16 07/02/16 07/03/16 07/04/16 20:09 07:28 05:16 05:58 Blood Urea Nitrogen 32 MG/DL (7-18) 28 MG/DL (7-18) 24 MG/DL (7-18) 33 MG/DL (7- 18) Estimat Glomerular Filtration 80 ML/MIN (>89) 82 ML/MIN (>89) 78 ML/MIN (>89) Rate Random Glucose 148 MG/DL 124 MG/DL 112 MG/DL 116 MG/DL (74-106) (74-106) (74-106) (74-106) White Blood Count 18.0 TH/MM3 14.8 TH/MM3 12.1 TH/MM3 (4.0-11.0) (4.0-11.0) (4.0-11.0) Red Blood Count 3.97 MIL/MM3 (4.00-5.30) Imaging Last Impressions Chest X-Ray 07/01/16 0600 Signed Impressions: Service Date/Time: Friday, July 01, 2016 04:02 - CONCLUSION: Interval development of atelectasis or consolidation in the medial left lower lung. Carlos Uribe MD Neck CT 06/30/16 0000 Signed Impressions: Service Date/Time: Thursday, June 30, 2016 12:05 - CONCLUSION: The tongue is prominent the but no focal abnormality is appreciated. There is mild narrowing of the oropharyngeal airway. Patient is intubated and nasogastric tube is present. On this noncontrast examination the appreciated a mass or abscess. Rhett Servin MD PE at Discharge GENERAL: 80-year-old female, sitiing up in bed SKIN: Warm and dry. No rash HEAD: Normocephalic. EYES: PERRL 2 mm b/l and reactive. No scleral icterus. No injection or drainage. N/T: Tongue no longer protrudes from mouth. Less swelling noted NECK: Supple, trachea midline. No JVD or lymphadenopathy. CARDIOVASCULAR: tachycardic, irregularly irregular S1, S2. No S4. Currently without murmurs, gallops, or rubs. RESPIRATORY: Breath sounds equal bilaterally. No accessory muscle use. GASTROINTESTINAL: Abdomen soft, non-tender, nondistended. Active bowel sounds MUSCULOSKELETAL: No significant peripheral edema. BACK: Nontender without obvious deformity. No CVA tenderness. Pt update on day of discharge rate controlled. patient denies cp/sob. explained patient major side effect of blood thinners to patient and daughter which include Gi bleed and intracranial bleed and instructed to go to the nearest ED if patient hits her head or has rectal bleeding or dark stools. Patient will also be discharged with an epi pen since upon her request and since the cause of her angioedema is not entirely clear. Instructed to use it only in case of life threatening allergic reaction and sob. Patient discharged from the intensive care unit due to her full recovery. Hospital Course Assessment: 80yF with angioedema, now with improved swelling. extubated yesterday. now in afib RVR, but this may be paroxysmal afib and not new-onset. will start amiodarone to help with rate control, and continue aggressive electrolyte replacement and diuresis. will consult cardiology for assitance in management of her afib. we will continue to normalize her and work towards getting her out of the icu in the near future if her afib is controlled. Neuro/Psych: Goal RASS 0 tylenol, oxy as needed for pain. CV: atrial fibrillation with rapid ventricular response History of hypertension History dyslipidemia SL IVF. Currently not requiring antihypertensives and/or vasopressors. Off lisinopril. Possibly J CARLOS-induced angioedema As needed hydralazine for hypertension. Holding spironolactone 25 mg by mouth daily for hypertension. Holding Lipitor 10 mg daily/fish oil 1000 mg/niacin 500 mg daily with aspirin 81 mg daily by mouth daily dyslipidemia. Resume when clinically indicated Lisinopril added as an allergy. 07/03 IV cardizem discontinued. Oral cardizem was continued and metoprolol added however hearet rate still increased. Dose of oral cardizem increased. Patient able to be discharged once rate is controlled. Patient also started on Eliquis for chronic anticoagulation. Ordered oral dose of cardizem to be given now since patient with afib w RVR. Resp: Acute respiratory failure secondary to angioedema- resolved. Scheduled bronchodilator therapy every 4 hours and as needed wean o2 by NC for goal spo2 > 92% EZ-PAP, Acapella, I.S. to bedside. OOB to chair PT consult. GI: heart healthy diet as tolerated. Pepcid 20 mg IV twice a day for GI prophylaxis Colace/Senokot twice a day for bowel regimen : Will has been placed for accurate I's and O's in a critically ill patient. diuresis for volume overload as above. Endo: Hyperglycemia - critical illness/steroid-induced History of hypothyroidism? Sliding-scale insulin with Accu-Cheks every 6 hours to maintain euglycemia. Low regimen. TSH within normal limits Renal: Monitor urine output Accurate I/O's. sp Lasix 40mg iv x 1. aggressively replace electrolytes. Heme: Normocytic anemia Leukocytosis - likely steroid related Thrombocytopenia Follow CBC in AM. ID: Monitor for infection FEN: Hypophosphatemia- resolved. MSK: PT evaluate and treat Access - Utilize peripheral IV. Central if indicated Prophylaxis - GI - Pepcid - DVT - SCD/Lovenox subcutaneous Pt Condition on Discharge: Good Discharge Disposition: Discharge Home Discharge Time: > 30 minutes Discharge Instructions DIET: Follow Instructions for: Heart Healthy Diet Activities you can perform: Regular-No Restrictions Activities to Avoid: Strenuous Activity Follow up Referrals: Cardiology with Kandi Saldaña MD PCP Follow-up - 1 Week New Medications: Epinephrine Inj (Epipen 2-Jc Inj) 0.3 Mg/0.3 Ml Pfpen 0.3 MG SQ ONCE PRN ALLERGIC REACTION #1 Ref 0 PACK Apixaban (Eliquis) 5 Mg Tab 5 MG PO BID Blood Clot Prevention #60 TAB Diltiazem CD 24 HR (Cardizem CD 24 HR) 180 Mg Caper 180 MG PO BID afib #60 CAP Metoprolol Tartrate (Metoprolol Tartrate) 25 Mg Tab 25 MG PO Q12HR afib #60 TAB Continued Medications: Atorvastatin (Lipitor) 10 Mg Tab 10 MG PO HS Cholesterol Management #30 Ref 0 TAB Cyanocobalamin (B12) 1,000 Mcg Tab Niacinamide (Niacin) 500 Mg Tab 50 MG Trosper-3 Fatty Acids (Fish Oil) 1,200 Mg Cap 1200 Probiotic Product (Probiotic) 1 Cap Cap Spironolactone (Spironolactone) 25 Mg Tab 25 MG PO DAILY #30 Ref 0 TAB Discontinued Medications: Aspirin (Aspir-81) 81 Mg Tabdr Ceasar Barba MD Jul 04, 2016 12:48
== END 2016-07-04 13:16 | disposition home or self-care (01) | DRG 208 ==
LOC: NEPC 18:06 → NEDA 18:53 → HIMN 06-29 00:25
PROVIDERS: ADMIT Hospitalist; ATTEND Hospitalist
PROC: 5A1945Z Respiratory Ventilation, 24-96 Consecutive Hours (ICD-10-PCS; principal; 2016-06-28)
PROC: 0BH17EZ Insertion of Endotracheal Airway into Trachea, Via Natural or Artificial Opening (ICD-10-PCS; 2016-06-28)
DX: J96.00 Acute respiratory failure, unspecified whether with hypoxia or hypercapnia (principal); D69.6 Thrombocytopenia, unspecified; E87.70 Fluid overload, unspecified; E83.42 Hypomagnesemia; E83.39 Other disorders of phosphorus metabolism; R00.1 Bradycardia, unspecified; I48.0 Paroxysmal atrial fibrillation; T78.3XXA Angioneurotic edema, initial encounter; T38.0X5A Adverse effect of glucocorticoids and synthetic analogues, initial encounter; I10 Essential (primary) hypertension; E78.5 Hyperlipidemia, unspecified; R73.9 Hyperglycemia, unspecified; E07.9 Disorder of thyroid, unspecified; D64.9 Anemia, unspecified; D72.829 Elevated white blood cell count, unspecified
CPT/HCPCS: 31500; 36600; 70490; 71010; 76937; 80048; 80053; 80061; 81001; 82550; 82805; 82948; 83605; 83735; 84100; 84132; 84443; 84484; 85025; 85027; 86160; 87086; 87641; 94002; 94003; 94150; 94640; 94664; 94667; 94668; 96374; 96375; C9399; J0171; J0282; J0330; J1160; J1200; J1650; J1940; J2250; J2930; J3010; J3475; J3480; J7030; J7120; P9047

== ENCOUNTER 2016-07-25 10:43 | Day surgery (SDC) | payer MEDICARE ==
[~2016-07-25 10:43] MED LIST changes: +APIX5TAB PO; -ATOR10 PO; +CARD180C5 PO; -CEPH500C3 PO; +CYAN1TAB24; -DARV PO; +EPIP0.3I SQ; +FISH120014; -LEVO25TA36 PO; +LIPI10TA PO; +METO25TA3 PO; +NIAC500T18; +PROBCAP11; +SPIR25TA PO
[2016-07-25] MEDS ORDERED: LACTATED RINGER'S 1000 ML IV SCH (11:00)
[2016-07-25] MEDS ORDERED: SODIUM CHLORID 0.9% 500 ML IV SCH (11:00)
[2016-07-25] MEDS ORDERED: METOPROLOL TARTRATE 25 MG TAB PO PRN (11:15)
[2016-07-25] MEDS ORDERED: INSULIN HUMAN REGULAR 1,000 UNITS/10 ML VIAL SQ PRN (11:15)
[2016-07-25] MEDS ORDERED: PROPOFOL 200 MG/20 ML AMP IV ONE (12:46)
--- NOTE | 2016-07-25 14:07 | PD.CARD ---
Cardiology Procedure Note Procedure Name: DC cardioversion Procedure Date: Jul 25, 2016 Procedure Note: Sedation by anesthesia. 200 J shock resulted in SR. Dx: Successful DC cardioversion of atrial fibrillation Plan: Continue anticoagulation. F/u w me within 2 weeks. Kandi Saldaña MD Jul 25, 2016 14:07
--- NOTE | 2016-07-26 08:52 | EKG ---
Date Performed: 07/25/2016 Time Performed: 14:24:24 PTAGE: 80 years EKG: Sinus bradycardia. Extensive ST-T changes are nonspecific Low QRS voltages in precordial le ads Borderline ECG PREVIOUS TRACING : 07/25/2016 10.59 DOCTOR: Crow Ospina Interpretating Date/Time 07/26/2016 08:48:58
--- NOTE | 2016-07-26 11:29 | EKG ---
Date Performed: 07/25/2016 Time Performed: 10:59:22 PTAGE: 80 years EKG: Atrial fibrillation. Extensive ST-T changes may be due to myocardial ischemia Abnormal ECG PREVIOUS TRACING : 04/15/2009 08.56 DOCTOR: Crow Ospina Interpretating Date/Time 07/26/2016 11:27:48
== END 2016-07-25 15:15 | disposition home or self-care (01) ==
LOC: HSDC 10:43 → HDIC 10:43 → HSDC 15:15
PROVIDERS: ATTEND Internal Medicine Interventional Cardiology
DX: I48.0 Paroxysmal atrial fibrillation (principal); I10 Essential (primary) hypertension; E78.5 Hyperlipidemia, unspecified; E07.9 Disorder of thyroid, unspecified
CPT/HCPCS: 92960; 93005

== ENCOUNTER 2016-08-06 12:51 | Day surgery (SDC) | payer MEDICARE ==
[2016-08-06] MEDS ORDERED: LACTATED RINGER'S 1000 ML IV SCH (13:00)
[2016-08-06] MEDS ORDERED: SODIUM CHLORID 0.9% 500 ML IV SCH (13:00)
[2016-08-06] MEDS ORDERED: INSULIN HUMAN REGULAR 1,000 UNITS/10 ML VIAL SQ PRN (13:15)
[2016-08-06] MEDS ORDERED: METOPROLOL TARTRATE 25 MG TAB PO PRN (13:15)
--- NOTE | 2016-08-13 14:53 | EKG ---
Date Performed: 08/06/2016 Time Performed: 13:33:40 PTAGE: 80 years EKG: Sinus bradycardia with PAC(s) Compared to prior tracing no significant change Normal ECG ex cept for rate PREVIOUS TRACING : 08/06/2016 13.32 DOCTOR: Paul Cutler Interpretating Date/Time 08/13/2016 14:52:08
== END 2016-08-06 13:30 | disposition home or self-care (01) ==
LOC: HDOC 12:51 → HDIC 12:52 → HDOC 13:30
PROVIDERS: ATTEND Internal Medicine Interventional Cardiology
DX: I48.91 Unspecified atrial fibrillation (principal); Z53.8 Procedure and treatment not carried out for other reasons
CPT/HCPCS: 93005; G0463; 92960; 99211

== ENCOUNTER 2016-09-24 12:57 | Inpatient (IN) | payer MEDICARE ==
[2016-09-24] VITALS (13 sets, daily range): BP systolic 118–188; BP diastolic 58–74; PULSE 69–82; RESP 16–18; TEMP 98.2–99.2; O2SAT 90–100
[~2016-09-24] VITALS: Ht 167.6 cm; Wt 69.1 kg
[2016-09-24] MEDS ORDERED: VITA100064 PO (13:33)
[2016-09-24] MEDS ORDERED: MULTTAB67 PO (13:33)
[2016-09-24] MEDS ORDERED: SODIUM CHLORIDE 0.9% FLUSH 10 ML FLUSH IVF PRN (13:45)
[2016-09-24] MEDS ORDERED: PANTOPRAZOLE INJ 80 MG in SODIUM CHLORIDE 0.9% INJ 35 ML IV ONE (13:45)
[2016-09-24] MEDS ORDERED: ONDANSETRON HCL 4 MG/2 ML VIAL IVP ONE (13:45)
[2016-09-24] MEDS: PANTOPRAZOLE INJ 80 MG in SODIUM CHLORIDE 0.9% INJ 100 ML IV SCH ×3 (13:51→23:02)
--- NOTE | 2016-09-24 13:54 | PD ---
HPI Chief Complaint: Fall Time Seen by Provider: 13:49 Travel History International Travel<30 days: No Contact w/Intl Traveler<30days: No Traveled to known affect area: No History of Present Illness HPI Patient comes in for evaluation after having a syncopal episode at home this morning around 9:30. Patient states she got up off the couch to call 911 and the next thing she knows she awoke on the floor and laid there until around noon when her son came home. Patient denies any pain anywhere. Denies any chest pain before or after the syncopal episode. Patient states that to 3 weeks ago she had coffee-ground emesis and black tarry stools since resolved until today when she began having coffee-ground emesis again. Patient does take Eliquis. Denies any headache, chest pain, shortness of abdominal pain, current change or loss in bowel or bladder, fevers, neck pain, or back pain PFSH Past Medical History Cardiovascular Problems: Yes High Cholesterol: Yes Diminished Hearing: No Hypertension: Yes Thyroid Disease: Yes Triglycerides - High: Yes Tetanus Vaccination: Unknown Influenza Vaccination: Yes ?: Not Menopausal: Yes Past Surgical History Abdominal Surgery: Yes Appendectomy: Yes Social History Alcohol Use: No Tobacco Use: No Substance Use: No Allergies-Medications (Allergen,Severity, Reaction): Coded Allergies: Lisinopril (Verified Adverse Reaction, Severe, angioedema, 07/25/16) Reported Meds & Prescriptions Reported Meds & Active Scripts Active Epipen 2-Jc Inj (Epinephrine) 0.3 Mg/0.3 Ml Pfpen 0.3 Mg SQ ONCE PRN Metoprolol Tartrate 25 Mg Tab 25 Mg PO Q12HR Eliquis (Apixaban) 5 Mg Tab 5 Mg PO BID Reported Multiple Vitamin 1 Tab 1 Tab PO DAILY Vitamin D (Cholecalciferol) 1,000 Unit Tab 1,000 Units PO DAILY B12 (Cyanocobalamin) 1,000 Mcg Tab Review of Systems Except as stated in HPI: all other systems reviewed are Neg Physical Exam Narrative GENERAL: Well-developed, well nourished, in no acute distress, and non-ill appearing. SKIN: Focused skin assessment warm and dry. HEAD: Atraumatic. Normocephalic. EYES: Pupils equal and round. EOMI. No scleral icterus. No injection or drainage. ENT: No nasal bleeding or discharge. Mucous membranes pink and moist. NECK: Trachea midline. Supple. No nuclear rigidity. CARDIOVASCULAR: Regular rate and rhythm. No murmur appreciated. RESPIRATORY: No accessory muscle use. No respiratory distress. Clear to auscultation. Breath sounds equal bilaterally. GASTROINTESTINAL: Abdomen soft, non-tender, nondistended. Hepatic and splenic margins not palpable. Normal bowel sounds 4. No pulsatile mass. MUSCULOSKELETAL: No obvious deformities. No clubbing. No cyanosis. No edema. Full range of motion. NEUROLOGICAL: Awake and alert. No obvious cranial nerve deficits. Motor grossly within normal limits. Normal speech. PSYCHIATRIC: Appropriate mood and affect; insight and judgment normal. Data Data Last Documented VS Vital Signs Date Time Temp Pulse Resp B/P Pulse Ox O2 Delivery O2 Flow Rate FiO2 09/24/16 14:09 91 Room Air 09/24/16 13:35 3 09/24/16 13:30 98.2 70 16 174/74 Orders Complete Blood Count With Diff (09/24/16 13:38) Comprehensive Metabolic Panel (09/24/16 13:38) Prothrombin Time / Inr (Pt) (09/24/16 13:38) Act Partial Throm Time (Ptt) (09/24/16 13:38) Urinalysis - C+S If Indicated (09/24/16 13:38) Type And Screen (09/24/16 13:38) Ecg Monitoring (09/24/16 13:38) Iv Access Insert/Monitor (09/24/16 13:38) Oximetry (09/24/16 13:38) Ondansetron Inj (Zofran Inj) (09/24/16 13:45) Sodium Chloride 0.9% Flush (Ns Flush) (09/24/16 13:45) Pantoprazole Inj (Protonix Inj) (09/24/16 13:45) Pantoprazole Inj (Protonix Inj) (09/24/16 13:45) Chest, Single Ap (09/24/16 ) Electrocardiogram (09/24/16 ) Ckmb (Isoenzyme) Profile (09/24/16 13:44) Troponin I (09/24/16 13:44) Ct Brain W/O Iv Contrast(Rout) (09/24/16 ) Ct Cerv Spine W/O Contrast (09/24/16 ) Red Blood Cells (Rbc) (09/24/16 14:39) Blood Product Administration .UPON TRANSFUSION (09/24/16 14:39) Admit Order (Ed Use Only) (09/24/16 14:57) Labs Laboratory Tests Test 09/24/16 13:42 White Blood Count 13.7 TH/MM3 Red Blood Count 2.67 MIL/MM3 Hemoglobin 8.0 GM/DL Hematocrit 24.7 % Mean Corpuscular Volume 92.6 FL Mean Corpuscular Hemoglobin 30.1 PG Mean Corpuscular Hemoglobin 32.5 % Concent Red Cell Distribution Width 14.9 % Platelet Count 217 TH/MM3 Mean Platelet Volume 9.2 FL Neutrophils (%) (Auto) 83.2 % Lymphocytes (%) (Auto) 9.6 % Monocytes (%) (Auto) 6.7 % Eosinophils (%) (Auto) 0.2 % Basophils (%) (Auto) 0.3 % Neutrophils # (Auto) 11.4 TH/MM3 Lymphocytes # (Auto) 1.3 TH/MM3 Monocytes # (Auto) 0.9 TH/MM3 Eosinophils # (Auto) 0.0 TH/MM3 Basophils # (Auto) 0.0 TH/MM3 CBC Comment DIFF FINAL Differential Comment Prothrombin Time 12.1 SEC Prothromb Time International 1.1 RATIO Ratio Activated Partial 23.2 SEC Thromboplast Time Sodium Level 140 MEQ/L Potassium Level 4.1 MEQ/L Chloride Level 104 MEQ/L Carbon Dioxide Level 25.8 MEQ/L Anion Gap 10 MEQ/L Blood Urea Nitrogen 49 MG/DL Creatinine 0.79 MG/DL Estimat Glomerular Filtration 70 ML/MIN Rate Random Glucose 113 MG/DL Calcium Level 8.7 MG/DL Total Bilirubin 0.4 MG/DL Aspartate Amino Transf 25 U/L (AST/SGOT) Alanine Aminotransferase 39 U/L (ALT/SGPT) Alkaline Phosphatase 71 U/L Total Creatine Kinase 87 U/L Troponin I LESS THAN 0.02 NG/ML Total Protein 6.0 GM/DL Albumin 3.0 GM/DL Blood Type A POSITIVE Blood Bank Comment [facility] Medical Decision Making Medical Screen Exam Complete: Yes Emergency Medical Condition: Yes Interpretation(s) EKG reviewed by Dr. Rocha shows sinus rhythm with ventricular rate of 68. No STEMI. Differential Diagnosis Syncope, acute coronary syndrome, GI bleed, electrolyte abnormality, closed head injury, intracranial hemorrhage, other Narrative Course Patient was examined. Laboratory and radiological studies were obtained and reviewed with the exception of urine that is still pending. Discussed patient with Dr. Rocha, who saw and evaluated the patient is in agreement with plan of care and disposition. Discussed all place and plan care of patient, who is agreeable for admission. All questions were answered. [facility] Point of Care Internal Pos. & Neg. Controls: Passed Fecal Specimen Occult Blood: Negative Gastric Specimen Occult Blood: Positive Comment Verbal consent was obtained. Digital rectal exam was performed. Stool specimen applied and test interpreted between 1 and 3 minutes of application and the result was negative. Internal Controls: Both positive and negative controls were validated. humanities coordinator Danae was present during this exam. Physician Communication Physician Communication [phone] Arriaga, who is agreeable to admit the patient. Diagnosis Primary Impression: Upper GI bleed Additional Impression: Syncope Qualified Code: R55 - Syncope, unspecified syncope type Admitting Information Admitting Physician Requests: Admit Condition: Stable Gato Tripp Sep 24, 2016 13:54
[2016-09-24 14:08] LABS: AUTOMATED NEUTROPHIL # 11.4 TH/MM3 (1.8-7.7); BASOPHIL % 0.3 % (0.0-2.0); EOSINOPHIL % 0.2 % (0.0-4.0); HEMATOCRIT 24.7 % (35.0-46.0); HEMO FLAGS DIFF FINAL; LYMPH % 9.6 % (9.0-44.0); LYMPHOCYTE # 1.3 TH/MM3 (1.0-4.8); MEAN CELL VOLUME 92.6 FL (80.0-100.0); MEAN CORPUSCULAR HEMOGLOBIN 30.1 PG (27.0-34.0); MEAN CORPUSCULAR HGB CONC 32.5 % (32.0-36.0); MONO % 6.7 % (0.0-8.0); NEUT % 83.2 % (16.0-70.0); PLATELET COUNT 217 TH/MM3 (150-450); RED BLOOD COUNT 2.67 MIL/MM3 (4.00-5.30); RED CELL DISTRIBUTION WIDTH 14.9 % (11.6-17.2); WHITE BLOOD COUNT 13.7 TH/MM3 (4.0-11.0)
[2016-09-24 14:17] LABS: APTT (PATIENT) 23.2 SEC (24.3-30.1); INTERNATIONAL NORMALIZED RATIO 1.1 RATIO; PROTHROMBIN TIME - PATIENT 12.1 SEC (9.8-11.6)
[2016-09-24 14:26] LABS: ALT (GPT) 39 U/L (10-53); ANION GAP 10 MEQ/L (5-15); AST (GOT) 25 U/L (15-37); BICARBONATE 25.8 MEQ/L (21.0-32.0); BLOOD UREA NITROGEN 49 MG/DL (7-18); CHLORIDE 104 MEQ/L (98-107); GLOMERULAR FILTRATION RATE 70 ML/MIN (>89); POTASSIUM 4.1 MEQ/L (3.5-5.1); SODIUM (NA) 140 MEQ/L (136-145)
[2016-09-24 14:28] LABS: ALKALINE PHOSPHATASE 71 U/L (45-117); TOTAL BILIRUBIN ADULT 0.4 MG/DL (0.2-1.0)
[2016-09-24 14:29] LABS: CREATINE KINASE 87 U/L (26-192)
--- NOTE | 2016-09-24 14:30 | RADRPT ---
EXAM DATE/TIME: 09/24/2016 14:02 [facility] COMPARISON: CT BRAIN W/O CONTRAST, April 15, 2009, 9:16. INDICATIONS : History of fall, patient hit head. RADIATION DOSE: ?56.35 CTDIvol (mGy) MEDICAL HISTORY : Cardiovascular disease. Hypertension. SURGICAL HISTORY : Appendectomy. ENCOUNTER: Initial ACUITY: 1 day PAIN SCALE: 4/10 LOCATION: Right cranial TECHNIQUE: Multiple contiguous axial images were obtained of the head. Using automated exposure control and adj ustment of the mA and/or kV according to patient size, radiation dose was kept as low as reasonably a chievable to obtain optimal diagnostic quality images. FINDINGS: CEREBRUM: The ventricles are normal for age. No evidence of midline shift, mass lesion, hemorrhage or acute in farction. No extra-axial fluid collections are seen. Moderate periventricular and subcortical white matter small vessel ischemic changes are noted bilaterally. POSTERIOR FOSSA: The cerebellum and brainstem are intact. The 4th ventricle is midline. The cerebellopontine angle i s unremarkable. EXTRACRANIAL: The visualized portion of the orbits is intact. SKULL: The calvaria is intact. No evidence of skull fracture. CONCLUSION: 1. Moderate periventricular and subcortical white matter small vessel ischemic changes bilaterally. 2. No acute infarct, acute hemorrhage, mass effect or extra-axial fluid collections. Dave Vargas MD on September 24, 2016 at 14:26 Board Certified Radiologist. This report was verified electronically.
--- NOTE | 2016-09-24 14:37 | RADRPT ---
EXAM DATE/TIME: 09/24/2016 13:44 [facility] COMPARISON: CHEST SINGLE AP, July 01, 2016, 4:02. INDICATIONS : Short of breath, vomiting MEDICAL HISTORY : atrial fibrillation SURGICAL HISTORY : None. ENCOUNTER: Initial ACUITY: 1 day PAIN SCORE: 0/10 LOCATION: Bilateral chest FINDINGS: The heart is enlarged. The pulmonary vascular pattern is normal. The lungs are clear. CONCLUSION: 1. Cardiomegaly. 2. No acute focal pulmonary infiltrate or pulmonary vascular congestion. Dave Vargas MD on September 24, 2016 at 14:16 Board Certified Radiologist. This report was verified electronically.
--- NOTE | 2016-09-24 14:58 | RADRPT ---
EXAM DATE/TIME: 09/24/2016 14:07 [place] COMPARISON: No previous studies available for comparison. INDICATIONS : History of fall, patient hit head. RADIATION DOSE: 29.66 CTDIvol (mGy) MEDICAL HISTORY : Cardiovascular disease. Hypertension. SURGICAL HISTORY : Appendectomy. ENCOUNTER: Initial ACUITY: 1 day PAIN SCALE: 4/10 LOCATION: Right cranial TECHNIQUE: Volumetric scanning of the cervical spine was performed. Multiplanar reconstructions in the sagittal, coronal and oblique axial planes were performed. Using automated exposure control and adjustment o f the mA and/or kV according to patient size, radiation dose was kept as low as reasonably achievable to obtain optimal diagnostic quality images. FINDINGS: There is reversal of the normal cervical lordosis. Disc space narrowing is noted at C3-4, C4-5, C5-6 and C6-7. Anterior and posterior osteophytic spurring is noted from C3 through C7. Moderate bilate ral foraminal narrowing is noted at C4-5, C5-6 and C6-7. There is no acute fracture or prevertebral soft tissue swelling. The bony relationship and alignment between C1 and C2 is well maintained. The re is mild spinal stenosis at C4-5 and C5-6. CONCLUSION: 1. No acute fracture or prevertebral soft tissue swelling. 2. Moderate bilateral foraminal narrowing at C4-5, C5-6 and C6-7. 3. Reversal of the normal cervical lordosis. 4. Mild spinal stenosis at C4-5 and C5-6. Dave Vargas MD on September 24, 2016 at 14:46 Board Certified Radiologist. This report was verified electronically.
--- NOTE | 2016-09-24 15:16 | PD ---
Data Data Last Documented VS Vital Signs Date Time Temp Pulse Resp B/P Pulse Ox O2 Delivery O2 Flow Rate FiO2 09/24/16 14:09 91 Room Air 09/24/16 13:35 3 09/24/16 13:30 98.2 70 16 174/74 Orders Complete Blood Count With Diff (09/24/16 13:38) Comprehensive Metabolic Panel (09/24/16 13:38) Prothrombin Time / Inr (Pt) (09/24/16 13:38) Act Partial Throm Time (Ptt) (09/24/16 13:38) Urinalysis - C+S If Indicated (09/24/16 13:38) Type And Screen (09/24/16 13:38) Ecg Monitoring (09/24/16 13:38) Iv Access Insert/Monitor (09/24/16 13:38) Oximetry (09/24/16 13:38) Ondansetron Inj (Zofran Inj) (09/24/16 13:45) Sodium Chloride 0.9% Flush (Ns Flush) (09/24/16 13:45) Pantoprazole Inj (Protonix Inj) (09/24/16 13:45) Pantoprazole Inj (Protonix Inj) (09/24/16 13:45) Chest, Single Ap (09/24/16 ) Electrocardiogram (09/24/16 ) Ckmb (Isoenzyme) Profile (09/24/16 13:44) Troponin I (09/24/16 13:44) Ct Brain W/O Iv Contrast(Rout) (09/24/16 ) Ct Cerv Spine W/O Contrast (09/24/16 ) Red Blood Cells (Rbc) (09/24/16 14:39) Blood Product Administration .UPON TRANSFUSION (09/24/16 14:39) Admit Order (Ed Use Only) (09/24/16 14:57) Labs Laboratory Tests Test 09/24/16 13:42 White Blood Count 13.7 TH/MM3 Red Blood Count 2.67 MIL/MM3 Hemoglobin 8.0 GM/DL Hematocrit 24.7 % Mean Corpuscular Volume 92.6 FL Mean Corpuscular Hemoglobin 30.1 PG Mean Corpuscular Hemoglobin 32.5 % Concent Red Cell Distribution Width 14.9 % Platelet Count 217 TH/MM3 Mean Platelet Volume 9.2 FL Neutrophils (%) (Auto) 83.2 % Lymphocytes (%) (Auto) 9.6 % Monocytes (%) (Auto) 6.7 % Eosinophils (%) (Auto) 0.2 % Basophils (%) (Auto) 0.3 % Neutrophils # (Auto) 11.4 TH/MM3 Lymphocytes # (Auto) 1.3 TH/MM3 Monocytes # (Auto) 0.9 TH/MM3 Eosinophils # (Auto) 0.0 TH/MM3 Basophils # (Auto) 0.0 TH/MM3 CBC Comment DIFF FINAL Differential Comment Prothrombin Time 12.1 SEC Prothromb Time International 1.1 RATIO Ratio Activated Partial 23.2 SEC Thromboplast Time Sodium Level 140 MEQ/L Potassium Level 4.1 MEQ/L Chloride Level 104 MEQ/L Carbon Dioxide Level 25.8 MEQ/L Anion Gap 10 MEQ/L Blood Urea Nitrogen 49 MG/DL Creatinine 0.79 MG/DL Estimat Glomerular Filtration 70 ML/MIN Rate Random Glucose 113 MG/DL Calcium Level 8.7 MG/DL Total Bilirubin 0.4 MG/DL Aspartate Amino Transf 25 U/L (AST/SGOT) Alanine Aminotransferase 39 U/L (ALT/SGPT) Alkaline Phosphatase 71 U/L Total Creatine Kinase 87 U/L Troponin I LESS THAN 0.02 NG/ML Total Protein 6.0 GM/DL Albumin 3.0 GM/DL Blood Type A POSITIVE Blood Bank Comment [facility] Supervised Visit with BRAD: Yes Narrative Course The history, exam, and medical decision-making in the associated midlevel provider note were completed with my assistance. I reviewed and agree with the findings presented. I attest that I had a [id number] encounter with the patient on the same day, and personally performed and documented my assessment and findings in the medical record. *My assessment and Findings: This is an 80-year-old female who presents to the emergency department having had an episode of syncope and having had coffee ground emesis earlier this morning. She is placed on a monitor and an IV was established. She was found to have normal vital signs. Hemoglobin was 8 which is significantly decreased from 14 back in June. She was cross matched for 1 unit of blood, pantoprazole was started and the patient will be admitted for GI intervention. Diagnosis Primary Impression: Upper GI bleed Additional Impression: Syncope Qualified Code: R55 - Syncope, unspecified syncope type Condition: Stable Aleyda Rocha MD Sep 24, 2016 15:16
--- NOTE | 2016-09-24 15:24 | HP.UPD ---
H&P Update Note This is an 80-year-old female with a history of atrial fibrillation for which she uses Eliquis. She had an episode of black vomiting of black stool about a month ago. Today she had an episode of severe dizziness followed by syncope which was in turn followed by coffee-ground emesis. The son called 911. She is now being admitted with upper GI bleed with hemoglobin of 8. One unit of blood is being given. GI consult is requested as well as cardiology consult. The patient was seen and examined by the undersigned in room E 51 at the emergency department. Full H&P to follow Eliu Arriaga MD Sep 24, 2016 15:20
[2016-09-24] MEDS ORDERED: EPINEPHrine HCL 0.3 MG SYR SQ PRN (15:30)
[2016-09-24] MEDS ORDERED: SODIUM CHLORIDE 0.9% FLUSH 10 ML FLUSH IV FLUSH PRN (15:30)
[2016-09-24] MEDS ORDERED: NALOXONE HCL 0.4 MG/ML AMP IV PRN (15:30)
[2016-09-24] MEDS: LACTATED RINGER'S 1000 ML INJ 1,000 ML IV SCH ×2 (15:38→23:05)
--- NOTE | 2016-09-24 17:34 | HHI.HP ---
HPI Service [facility] Primary Care Physician Shira Valerio M.D. Admission Diagnosis upper GI bleed, syncope Diagnoses: Chief Complaint: syncope Travel History International Travel<30 Days: No Contact w/Intl Traveler <30 Da: No Traveled to Known Affected Are: No History of Present Illness This is a pleasant 80-year-old female with significant past medical history of recent diagnosis of atrial fibrillation currently on Eliquis, recent admission for angioedema secondary to lisinopril requiring mechanical ventilation, hyperlipidemia, hypothyroid. Patient presented to the emergency room after she had a syncopal episode at home number 9:30 in the morning. Patient endorses that she has been feeling nauseous for the last month, it is intermittent. This morning, she got up feeling nauseous, she sat on the couch for a while and then went up to make herself something to eat. While she was cooking, she felt very lightheaded as if she was about to fall. She decided to walk to the front door so she can gunlock the front door and then call 911 when she felt more lightheaded and passed out. Indicates she fell on the floor and lay there for approximately 2 hours until her son arrived around 12 noon. As her son was assisting her, she had large episode of emesis that was brown, black in color. Endorses that approximately a month ago she did have an episode of projectile brown color emesis with black stools that only lasted one day. As indicated above, patient is on Eliquis. States that she had a colonoscopy 8 years ago and had polypectomy. At that time she was evaluated per Dr. Bender. No history of PUD, no previous GI bleed, no alcohol abuse. Denies any heartburn, no abdominal pain, no weight loss. Appetite has been fair. No recent chest pain, shortness of breath, no palpitations. She has been fatigued. She did have a cardioversion July 252016. Her wallpaperer helper is Dr. Saldaña. In the emergency room, patient was evaluated. Laboratory workup was completed. CBC significant for hemoglobin of 8, hematocrit of 24.7, last hemoglobin in June was 14. BMP essentially unremarkable, troponin was negative. INR 1.1. Imaging studies were completed. Cervical CT was negative for any fractures. Chest x-ray positive for cardiomegaly, no acute focal pulmonary infiltrate and pulmonary vascular congestion. CT of the head was negative. Patient was started on Protonix drip and 1 unit of blood was ordered. At this time, patient is examined in the emergency room. She is hemodynamically stable. Patient is admitted for further evaluation and treatment. Review of Systems Constitutional: COMPLAINS OF: Fatigue, Dizziness, Change in appetite, DENIES: Diaphoretic episodes, Fever, Weight gain, Weight loss, Chills, Night Sweats Endocrine: DENIES: Abnorml menstrual pattern, Heat/cold intolerance, Polydipsia , Polyuria, Polyphagia Eyes: DENIES: Blurred vision, Diplopia, Eye inflammation, Eye pain, Vision loss , Photosensitivity, Double Vision Ears, nose, mouth, throat: DENIES: Tinnitus, Hearing loss, Vertigo, Nasal discharge, Oral lesions, Throat pain, Hoarseness, Ear Pain, Running Nose, Epistaxis, Sinus Pain, Toothache, Odynophagia Respiratory: DENIES: Apneas, Cough, Snoring, Wheezing, Hemoptysis, Sputum production, Shortness of breath Cardiovascular: DENIES: Chest pain, Palpitations, Syncope, Dyspnea on Exertion , PND, Lower Extremity Edema, Orthopnea, Claudication Gastrointestinal: COMPLAINS OF: Black stools, Nausea, Vomiting, DENIES: Abdominal pain, Bloody stools, Constipation, Diarrhea, Difficulty Swallowing, Anorexia Genitourinary: DENIES: Abnormal vaginal bleeding, Dysmenorrhea, Dyspareunia, Sexual dysfunction, Urinary frequency, Urinary incontinence, Urgency, Hematuria , Dysuria, Nocturia, Vaginal discharge Musculoskeletal: DENIES: Joint pain, Muscle aches, Stiffness, Joint Swelling, Back pain, Neck pain Integumentary: DENIES: Abnormal pigmentation, Pruritus, Rash, Nail changes, Breast masses, Breast skin changes, Nipple discharge Hematologic/lymphatic: DENIES: Bruising, Lymphadenopathy Immunologic/allergic: DENIES: Eczema, Urticaria Neurologic: DENIES: Abnormal gait, Headache, Localized weakness, Paresthesias, Seizures, Speech Problems, Tremor, Poor Balance Psychiatric: DENIES: Anxiety, Confusion, Mood changes, Depression, Hallucinations, Agitation, Suicidal Ideation, Homicidal Ideation, Delusions Past Family Social History Past Medical History Dyslipidemia Recent diagnosis of atrial fibrillation, put on Eliquis and beta blockers Cardioversion July 25, 2016 Hypothyroid Angioedema secondary to lisinopril requiring mechanical ventilation Past Surgical History Cardioversion July 2016 Hip replacement Appendectomy Reported Medications Reported Meds & Active Scripts Active Epipen 2-Jc Inj (Epinephrine) 0.3 Mg/0.3 Ml Pfpen 0.3 Mg SQ ONCE PRN Metoprolol Tartrate 25 Mg Tab 25 Mg PO Q12HR Eliquis (Apixaban) 5 Mg Tab 5 Mg PO BID Reported Multiple Vitamin 1 Tab 1 Tab PO DAILY Vitamin D (Cholecalciferol) 1,000 Unit Tab 1,000 Units PO DAILY B12 (Cyanocobalamin) 1,000 Mcg Tab Allergies: Coded Allergies: Lisinopril (Verified Adverse Reaction, Severe, angioedema, 07/25/16) Active Ordered Medications Inpatient Medications Cholecalciferol (Vitamin D3) 1,000 units DAILY PO ; Start 09/25/16 at 09:00 Epinephrine HCl (Epipen Inj) 0.3 mg ONCE PRN SQ ALLERGIC REACTION; Start at 15:30; Stop 09/24/16 at 21:00 Lactated Ringer's (Lr 1000 ml Inj) 1,000 ml @ 100 mls/hr Q10H IV Last administered on 09/24/16 15:38; Start 09/24/16 at 16:00 Metoprolol Tartrate (Lopressor) 25 mg Q12HR PO ; Start 09/24/16 at 21:00 Multivitamins 1 tab 1 tab DAILY PO ; Start 09/25/16 at 09:00 Naloxone HCl (Narcan Inj) 0.4 mg UNSCH PRN IV SEE LABEL COMMENTS; Start at 15:30 Ondansetron HCl (Zofran Inj) 4 mg Q6H PRN IVP NAUSEA OR VOMITING; Start at 15:30 Pantoprazole Sodium 80 mg/ Sodium Chloride 35 ml @ 420 mls/hr ONCE ONCE IV Last administered on 09/24/16 14:37; Start 09/24/16 at 13:45; Stop 09/24/16 at 13:49; Status DC Pantoprazole Sodium/Sodium Chloride (Protonix Inj/NS Inj) 100 ml @ 10 mls/hr Q10H IV Last administered on 09/24/16 14:37; Start 09/24/16 at 13:45 Sodium Chloride (NS Flush) 2 ml BID IV FLUSH ; Start 09/24/16 at 21:00 Sodium Chloride 2 ml 2 ml UNSCH PRN IVF FLUSH AFTER USING IV ACCESS; Start at 13:45; Stop 09/24/16 at 15:21; Status DC Family History One sister from colon cancer Another sister from complications of metastatic cancer, does not know primary site Mother and father both from old age 1 sister with history of coronary artery disease Social History Patient lives with one of her sons, she has 2 other children. No alcohol, no substance abuse, no tobacco abuse. Physical Exam Vital Signs Vital Signs Date Time Temp Pulse Resp B/P Pulse Ox O2 Delivery O2 Flow Rate FiO2 09/24/16 16:35 98.3 80 17 119/58 99 Nasal Cannula 2 09/24/16 16:20 98.5 79 17 125/60 100 Nasal Cannula 2 09/24/16 16:05 98.5 75 17 118/59 99 Nasal Cannula 09/24/16 16:00 99.2 79 18 132/60 100 Nasal Cannula 2 09/24/16 15:55 98.9 74 17 128/62 99 Nasal Cannula 2 09/24/16 15:50 98.7 77 17 131/60 97 Nasal Cannula 2 09/24/16 15:38 69 16 131/60 96 Nasal Cannula 2 09/24/16 14:09 91 Room Air 09/24/16 13:35 96 Nasal Cannula 3 09/24/16 13:30 98.2 70 16 174/74 90 Room Air 09/24/16 13:18 98.2 78 18 138/63 98 Physical Exam GENERAL: This is a well-nourished, well-developed patient, in no apparent distress. SKIN: Skin pale cool and dry HEAD: Atraumatic. Normocephalic. No temporal or scalp tenderness. EYES: Pupils equal round and reactive. Extraocular motions intact. No scleral icterus. Conjunctiva pale. No injection or drainage. ENT: Nose without bleeding, purulent drainage or septal hematoma. Throat without erythema, tonsillar hypertrophy or exudate. Uvula midline. Airway patent. NECK: Trachea midline. No JVD or lymphadenopathy. Supple, nontender, no meningeal signs. CARDIOVASCULAR: Regular rate and rhythm without murmurs, gallops, or rubs. RESPIRATORY: Clear to auscultation. Breath sounds equal bilaterally. No wheezes , rales, or rhonchi. GASTROINTESTINAL: Abdomen soft, non-tender, nondistended. No hepato-splenomegaly , or palpable masses. No guarding. MUSCULOSKELETAL: Extremities without clubbing, cyanosis, or edema. No joint tenderness, effusion, or edema noted. No calf tenderness. Negative Homans sign bilaterally. NEUROLOGICAL: Awake and alert. Cranial nerves II through XII intact. Motor and sensory grossly within normal limits. Five out of 5 muscle strength in all muscle groups. Normal speech. Laboratory Laboratory Tests Test 09/24/16 09/24/16 09/24/16 13:42 14:44 15:00 White Blood Count 13.7 Red Blood Count 2.67 Hemoglobin 8.0 Hematocrit 24.7 Mean Corpuscular Volume 92.6 Mean Corpuscular Hemoglobin 30.1 Mean Corpuscular Hemoglobin 32.5 Concent Red Cell Distribution Width 14.9 Platelet Count 217 Mean Platelet Volume 9.2 Neutrophils (%) (Auto) 83.2 Lymphocytes (%) (Auto) 9.6 Monocytes (%) (Auto) 6.7 Eosinophils (%) (Auto) 0.2 Basophils (%) (Auto) 0.3 Neutrophils # (Auto) 11.4 Lymphocytes # (Auto) 1.3 Monocytes # (Auto) 0.9 Eosinophils # (Auto) 0.0 Basophils # (Auto) 0.0 CBC Comment DIFF FINAL Differential Comment Prothrombin Time 12.1 Prothromb Time International 1.1 Ratio Activated Partial 23.2 Thromboplast Time Sodium Level 140 Potassium Level 4.1 Chloride Level 104 Carbon Dioxide Level 25.8 Anion Gap 10 Blood Urea Nitrogen 49 Creatinine 0.79 Estimat Glomerular Filtration 70 Rate Random Glucose 113 Calcium Level 8.7 Total Bilirubin 0.4 Aspartate Amino Transf 25 (AST/SGOT) Alanine Aminotransferase 39 (ALT/SGPT) Alkaline Phosphatase 71 Total Creatine Kinase 87 Troponin I LESS THAN 0.02 Total Protein 6.0 Albumin 3.0 Blood Type A POSITIVE A POSITIVE Antibody Screen NEGATIVE Blood Bank Comment Crossmatch Leukocyte-Reduced Red Blood Cells Result Diagram: 09/24/16 1342 09/24/16 1342 Imaging Last Impressions Head CT 09/24/16 0000 Signed Impressions: Service Date/Time: Saturday, September 24, 2016 14:02 - CONCLUSION: 1. Moderate periventricular and subcortical white matter small vessel ischemic changes bilaterally. 2. No acute infarct, acute hemorrhage, mass effect or extra- axial fluid collections. Dave Vargas MD Chest X-Ray 09/24/16 0000 Signed Impressions: Service Date/Time: Saturday, September 24, 2016 13:44 - CONCLUSION: 1. Cardiomegaly. 2. No acute focal pulmonary infiltrate or pulmonary vascular congestion. Dave Vargas MD Cervical Spine CT 09/24/16 0000 Signed Impressions: Service Date/Time: Saturday, September 24, 2016 14:07 - CONCLUSION: 1. No acute fracture or prevertebral soft tissue swelling. 2. Moderate bilateral foraminal narrowing at C4-5, C5-6 and C6-7. 3. Reversal of the normal cervical lordosis. 4. Mild spinal stenosis at C4-5 and C5-6. Dave Vargas MD Assessment and Plan Problem List: (1) Upper GI bleed (2) Syncope (3) Dyslipidemia (4) A-fib (5) Hx of angioedema (6) History of cardioversion Assessment and Plan Admitted to Dr. Arriaga 80-year-old elderly female presented to the emergency room with intermittent nausea, today she had syncopal episode, coffee-ground emesis and tarry stools. Was recently diagnosed with atrial fibrillation, put on Eliquis. Hemoglobin 8 on admission, last one was 14. Upper GI bleed, on chronic anticoagulation. -Keep nothing by mouth Serial H&H 1 unit of packed cell is currently in progress -continue with Protonix drip Gastroenterology consulted for evaluation Hold Martaquariadna Juanib, currently SR, had cardioversion July 25. -Continuous cardiac telemetry Resume metoprolol 25 mg by mouth twice a day -Consult cardiology, Dr. saldaña for evaluation and recommendations on anticoagulation. Recent angioedema secondary to lisinopril, required mechanical ventilation -Stable continue to monitor SCDs for DVT prophylaxis Protonix for GI prophylaxis Plan of care discussed with patient, attending and registered nurse. Further management of the patient will be dependent on the hospital course This patient was seen by myself and Dr. Arriaga, this H&P is written on his behalf Physician Certification 2 Midnight Certification Type: Admission for Inpatient Services Order for Inpatient Services The services are ordered in accordance with Medicare regulations or non- Medicare payer requirements, as applicable. In the case of services not specified as inpatient-only, they are appropriately provided as inpatient services in accordance with the 2-midnight benchmark. Estimated LOS (days): 2 2 days is the estimated time the patient will need to remain in the hospital, assuming treatment plan goals are met and no additional complications. Post-Hospital Plan: Home Problem Qualifiers (1) Syncope: Qualified Code: R55 - Syncope, unspecified syncope type (2) A-fib: Qualified Code: I48.91 - Atrial fibrillation, unspecified type Sherry Hanson Sep 24, 2016 17:34
[2016-09-24 18:53] LABS: BLOOD, URINE NEG (NEG); COMMENT (UR) CULTURE INDICATED; CULTURE IF INDICATED CULTURE INDICATED; GLUCOSE,URINE NEG (NEG); KETONE, URINE 10 mg/dL (NEG); NITRITE,URINE NEG (NEG); PH, URINE 6.5 (5.0-8.5); TRANSITIONAL EPI CELLS, URINE <1 /hpf; URINE COLOR LIGHT-YELLOW (YELLW/STRAW)
--- NOTE | 2016-09-24 19:32 | EKG ---
Date Performed: 09/24/2016 Time Performed: 16:02:53 PTAGE: 80 years EKG: Sinus rhythm NORMAL ECG NO PREVIOUS TRACING DOCTOR: Junior Moore Interpretating Date/Time 09/24/2016 19:31:54
--- NOTE | 2016-09-24 19:35 | EKG ---
Date Performed: 09/24/2016 Time Performed: 13:41:08 PTAGE: 80 years EKG: Sinus rhythm WITH SINUS ARRHYTHMIA NORMAL ECG INTERPRETATION BASED ON A DEFAULT AGE OF 40 YEARS COMPARED TO PRIOR ELECTROCARDIOGRAM, No significant change. NO PREVIOUS TRACING DOCTOR: Junior Moore Interpretating Date/Time 09/24/2016 19:33:44
[2016-09-24] MEDS: SODIUM CHLORIDE 0.9% FLUSH 10 ML FLUSH IV FLUSH SCH (21:00)
[2016-09-24 21:40] LABS: HEMATOCRIT 24.2 % (35.0-46.0); REVIEW FLAG FINAL
[2016-09-24] MEDS: METOPROLOL TARTRATE 25 MG TAB PO SCH (23:02)
[2016-09-25] VITALS (10 sets, daily range): BP systolic 118–152; BP diastolic 58–78; PULSE 75–99; RESP 18–24; TEMP 96.9–101; O2SAT 95–98
[2016-09-25] MEDS: ONDANSETRON HCL 4 MG/2 ML VIAL IVP PRN (00:58)
--- NOTE | 2016-09-25 06:41 | MB ---
cc: KANDI SALDAÑA DATE OF CONSULTATION 09/24/2016 HISTORY OF PRESENT ILLNESS Ms. Atwood is a very pleasant 80-year-old white female with a history of recently diagnosed atrial fibrillation on Eliquis. She was cooking and felt lightheaded and passed out. She had black emesis. She was brought to the emergency room where she was found to be anemic with a hemoglobin of 8. EGD is planned for tomorrow. PAST MEDICAL HISTORY Positive for - 1. Dyslipidemia. 2. Recent diagnosis of atrial fibrillation. Had cardioversion on July 25. 3. Hypothyroidism. 4. Angioedema secondary to lisinopril requiring mechanical ventilation. 5. Hip replacement. 6. Appendectomy. MEDICATIONS 1. Metoprolol. 2. EpiPen p.r.n. 3. Eliquis which has been now on hold. 4. Multivitamin. 5. Vitamin B12. ALLERGIES LISINOPRIL. SOCIAL HISTORY The patient does not smoke. She does not drink alcohol. FAMILY HISTORY Positive for coronary artery disease in her sister. REVIEW OF SYSTEMS Otherwise negative. PHYSICAL EXAMINATION VITAL SIGNS: Blood pressure 124/63, pulse 81 and regular. HEART: Regular. No murmur, gallop or rub. ABDOMEN: Soft. No bruits. EXTREMITIES: Without edema. 2+ distal pulses. NEUROLOGIC: Grossly nonfocal. TELEMETRY Shows sinus rhythm. LABS Hemoglobin 8.0. Potassium 4.1, creatinine 0.8. CK 87. Troponin less than 0.02. AST and ALT are normal. DIAGNOSES 1. Syncope. 2. Upper GI bleeding. 3. Anemia. 4. Paroxysmal atrial fibrillation. 5. History of angioedema secondary to J CARLOS inhibitor. DISPOSITION 1. Ms. Atwood has been transfused. We will monitor her H&H. She will undergo upper endoscopy tomorrow. GI evaluation is in progress. 2. We will hold Eliquis for now. She will eventually need to be back on anticoagulation due to her history of atrial fibrillation and recent cardioversion. We will restart anticoagulation once it is okay with GI. 3. I will follow her for Cardiology during her hospitalization. Kandi Saldaña MD ORodrigo/SSB /6:13 PM /6:33 AM [facility]
[2016-09-25] MEDS: CHOLECALCIFEROL (VIT D3) 1000 UNIT TAB PO SCH (08:46)
[2016-09-25] MEDS: METOPROLOL TARTRATE 25 MG TAB PO SCH ×2 (08:46→22:04)
[2016-09-25] MEDS: MULTIVITAMIN TAB PO SCH (08:46)
[2016-09-25] MEDS: SODIUM CHLORIDE 0.9% FLUSH 10 ML FLUSH IV FLUSH SCH ×2 (08:51→21:00)
[2016-09-25] MEDS: PANTOPRAZOLE INJ 80 MG in SODIUM CHLORIDE 0.9% INJ 100 ML IV SCH (09:00)
--- NOTE | 2016-09-25 10:04 | PD.CONS ---
HPI History of Present Illness This is a 80 year old who came to the ER after an episode of hematemesis and syncope. She reports that she was hospitalized a few months ago for angioedema secondary to lisinopril which required intubation and mechanical ventilation. While she was hospitalized she went into atrial fibrillation and underwent cardioversion and was started Eliquis. She reports that about 2 weeks ago she had one episode of hematemesis consisting of dark coffee-ground emesis and melanotic stool. She reports that afterwards she felt fine and she didn't have any further episodes. Yesterday afternoon, she became dizzy. She knew that she was going to have to call 911 for help and therefore was on her way to unlock the security system on the door, when she had a syncopal episode. She awakened and another episode of coffee ground emesis. She reports that she was too weak to get up by herself and therefore she laid on the floor for 2 hours before her son returned home and called for help. She denies any prior history of peptic ulcer disease or GI bleeding. She does have arthritic pain and takes Aleve 2 tabs per day. She has been on Eliquis since earlier this year and last took this on Saturday. She denies any heartburn, reflux, weight loss, abdominal pain, bowel changes other than the dark stool a few weeks ago. She last had a colonoscopy about 8 years ago and reports that she had a polyp removed. This was done by Dr. Mcgee. (Christie Pizarro) [facility] Past Medical History Dyslipidemia Atrial fibrillation, status post cardioversion, on Eliquis Hypothyroidism Angioedema secondary to lisinopril Respiratory failure secondary to angioedema Colon polyps Arthritis Past Surgical History Right hip replacement Appendectomy Cardioversion in July 2016 (Christie Pizarro) Coded Allergies: Lisinopril (Verified Adverse Reaction, Severe, angioedema, 07/25/16) Medications Allergies Coded Allergies Type Severity Reaction Last Updated Verified Lisinopril Adverse Reaction Severe angioedema 07/25/16 Yes Active Scripts Medications Dose Route/Sig Days Date Category Multiple Vitamin 1 Tab 1 Tab PO DAILY 09/24/16 Reported Vitamin D (Cholecalciferol) 1,000 Unit Tab 1,000 Units PO DAILY 09/24/16 Reported Epipen 2-Jc Inj (Epinephrine) 0.3 Mg/0.3 Ml Pfpen 0.3 Mg SQ ONCE PRN 07/04/16 Rx Metoprolol Tartrate 25 Mg Tab 25 Mg PO Q12HR 07/04/16 Rx Eliquis (Apixaban) 5 Mg Tab 5 Mg PO BID 07/04/16 Rx B12 (Cyanocobalamin) 1,000 Mcg Tab 06/28/16 Reported Aleve 2 tabs per day Family History 1 sister from colon cancer, another sister from complications of metastatic cancerpatient does not know the primary site Social History Denies the use of alcohol, tobacco, illicit drug use (Christie Pizarro) Review of Systems Constitutional: COMPLAINS OF: Diaphoretic episodes, Fatigue, Dizziness, DENIES : Weight loss, Change in appetite Respiratory: DENIES: Cough Cardiovascular: COMPLAINS OF: Syncope, DENIES: Chest pain Gastrointestinal: COMPLAINS OF: Black stools, Nausea, Vomiting, Hematemesis, DENIES: Abdominal pain, Bloody stools, Constipation, Diarrhea, Swelling of Abdomen, Heartburn Musculoskeletal: COMPLAINS OF: Joint pain Hematologic/lymphatic: DENIES: Bruising Neurologic: DENIES: Headache Psychiatric: DENIES: Confusion (Christie Pizarro) GI Exam Vitals I&O Vital Signs Date Time Temp Pulse Resp B/P Pulse Ox O2 Delivery O2 Flow Rate FiO2 09/25/16 08:00 96.9 92 20 152/67 96 09/25/16 04:00 98.9 79 18 128/58 97 09/25/16 00:00 98.5 84 20 125/78 98 09/24/16 20:00 98.8 77 18 123/58 95 09/24/16 18:01 99.0 81 17 144/63 99 Nasal Cannula 2 09/24/16 17:32 82 16 138/62 99 Nasal Cannula 2 09/24/16 16:35 98.3 80 17 119/58 99 Nasal Cannula 2 09/24/16 16:20 98.5 79 17 125/60 100 Nasal Cannula 2 09/24/16 16:05 98.5 75 17 118/59 99 Nasal Cannula 09/24/16 16:00 99.2 79 18 132/60 100 Nasal Cannula 2 09/24/16 15:55 98.9 74 17 128/62 99 Nasal Cannula 2 09/24/16 15:50 98.7 77 17 131/60 97 Nasal Cannula 2 09/24/16 15:38 69 16 131/60 96 Nasal Cannula 2 09/24/16 14:09 91 Room Air 09/24/16 13:35 96 Nasal Cannula 3 09/24/16 13:30 98.2 70 16 174/74 90 Room Air 09/24/16 13:18 98.2 78 18 138/63 98 I/O 09/24/16 09/24/16 09/24/16 09/25/16 09/25/16 09/25/16 07:00 15:00 23:00 07:00 15:00 23:00 Intake Total 500 ml Output Total 100 ml Balance 400 ml Intake Packed Cells 500 ml Output Urine Total 100 ml # Voids 1 3 Imaging Last Impressions Head CT 09/24/16 0000 Signed Impressions: Service Date/Time: Saturday, September 24, 2016 14:02 - CONCLUSION: 1. Moderate periventricular and subcortical white matter small vessel ischemic changes bilaterally. 2. No acute infarct, acute hemorrhage, mass effect or extra- axial fluid collections. Dave Vargas MD Chest X-Ray 09/24/16 0000 Signed Impressions: Service Date/Time: Saturday, September 24, 2016 13:44 - CONCLUSION: 1. Cardiomegaly. 2. No acute focal pulmonary infiltrate or pulmonary vascular congestion. Dave Vargas MD Cervical Spine CT 09/24/16 0000 Signed Impressions: Service Date/Time: Saturday, September 24, 2016 14:07 - CONCLUSION: 1. No acute fracture or prevertebral soft tissue swelling. 2. Moderate bilateral foraminal narrowing at C4-5, C5-6 and C6-7. 3. Reversal of the normal cervical lordosis. 4. Mild spinal stenosis at C4-5 and C5-6. Dave Vargas MD Laboratory Test 09/24/16 09/24/16 09/24/16 09/24/16 13:42 14:44 15:00 18:30 White Blood Count 13.7 TH/MM3 Red Blood Count 2.67 MIL/MM3 Hemoglobin 8.0 GM/DL Hematocrit 24.7 % Mean Corpuscular Volume 92.6 FL Mean Corpuscular Hemoglobin 30.1 PG Mean Corpuscular Hemoglobin 32.5 % Concent Red Cell Distribution Width 14.9 % Platelet Count 217 TH/MM3 Mean Platelet Volume 9.2 FL Neutrophils (%) (Auto) 83.2 % Lymphocytes (%) (Auto) 9.6 % Monocytes (%) (Auto) 6.7 % Eosinophils (%) (Auto) 0.2 % Basophils (%) (Auto) 0.3 % Neutrophils # (Auto) 11.4 TH/MM3 Lymphocytes # (Auto) 1.3 TH/MM3 Monocytes # (Auto) 0.9 TH/MM3 Eosinophils # (Auto) 0.0 TH/MM3 Basophils # (Auto) 0.0 TH/MM3 CBC Comment DIFF FINAL Differential Comment Prothrombin Time 12.1 SEC Prothromb Time International 1.1 RATIO Ratio Activated Partial 23.2 SEC Thromboplast Time Sodium Level 140 MEQ/L Potassium Level 4.1 MEQ/L Chloride Level 104 MEQ/L Carbon Dioxide Level 25.8 MEQ/L Anion Gap 10 MEQ/L Blood Urea Nitrogen 49 MG/DL Creatinine 0.79 MG/DL Estimat Glomerular Filtration 70 ML/MIN Rate Random Glucose 113 MG/DL Calcium Level 8.7 MG/DL Total Bilirubin 0.4 MG/DL Aspartate Amino Transf 25 U/L (AST/SGOT) Alanine Aminotransferase 39 U/L (ALT/SGPT) Alkaline Phosphatase 71 U/L Total Creatine Kinase 87 U/L Troponin I LESS THAN 0.02 NG/ML Total Protein 6.0 GM/DL Albumin 3.0 GM/DL Blood Type A POSITIVE A POSITIVE Antibody Screen NEGATIVE Blood Bank Comment Crossmatch Leukocyte-Reduced Red Blood Cells Urine Color LIGHT-YELLOW Urine Turbidity CLEAR Urine pH 6.5 Urine Specific [place] 1.016 Urine Protein NEG mg/dL Urine Glucose (UA) NEG mg/dL Urine Ketones 10 mg/dL Urine Occult Blood NEG Urine Nitrite NEG Urine Bilirubin NEG Urine Urobilinogen LESS THAN 2.0 MG/DL Urine Leukocyte Esterase MOD Urine RBC 1 /hpf Urine WBC 17 /hpf Urine Transitional Epithelial <1 /hpf Cells Microscopic Urinalysis Comment CULTURE INDICATED Test 09/24/16 21:30 Hemoglobin 8.2 GM/DL Hematocrit 24.2 % Date/Time Procedure Status Source Growth 09/24/16 18:30 Urine Culture Received Urine Clean Catch Pending Physical Examination HEENT: Normocephalic; atraumatic; no jaundice. CHEST: CTA CARDIAC: RRR ABDOMEN: Soft, nondistended, nontender; no hepatosplenomegaly; bowel sounds are present in all four quadrants. EXTREMITIES: No clubbing, cyanosis, or edema. SKIN: Normal; no rash; no jaundice. BELTING INSPECTOR: No focal deficits; alert and oriented times three. (Christie Pizarro) Assessment and Plan Plan ASSESSMENT: - Upper GI bleed, hematemesis or coffee-ground emesis and recent melena. Patient is on Eliquis for atrial fibrillation (she last had this Saturday). She also takes Aleve 2 tabs daily for arthritic pain. She had an episode of coffee-ground emesis and melena about 2 weeks ago. She then did not have any further episodes until yesterday when she became dizzy, passed out, and had another episode of coffee ground emesis. HH 8.2/24.2, down from 14.1 in June. NPO. Protonix gtt. - Anemia secondary to acute blood loss. H&H 8.2/24.2. Status post 1 unit of packed red blood cells - Leukocytosis. WBC 13.7. ? reactive - Atrial fibrillation, s/p cardioversion. Eliquis, last had saturday. - Hypothyroidism, HTN per primary PLAN: - Plan for EGD today - Obtain consents - Nothing by mouth - Protonix drip - Monitor H&H - Transfuse as necessary - Hold Eliquis for now - Supportive care - Further recommendations to follow based on results of above - Pt seen and examined by Dr. Hahn and myself and this note is written on her behalf (Christie Pizarro) Physician Comments seen, examined agree with above (Tonja Hahn MD) Christie Pizarro Sep 25, 2016 10:03 Tonja Hahn MD Sep 25, 2016 18:11
[2016-09-25] MEDS: SULFAMETHOXAZOLE-TRIMETHOPRIM 400-80 MG TAB PO SCH (11:00)
--- NOTE | 2016-09-25 11:55 | HHI.PR ---
Subjective Remarks sitting on side of bed alert, oriented NPO for EGD, son in for support. Objective Objective Results - Vital Signs Date Time Temp Pulse Resp B/P Pulse Ox O2 Delivery O2 Flow Rate FiO2 09/25/16 08:00 96.9 92 20 152/67 96 09/25/16 04:00 98.9 79 18 128/58 97 09/25/16 00:00 98.5 84 20 125/78 98 09/24/16 20:00 98.8 77 18 123/58 95 09/24/16 18:01 99.0 81 17 144/63 99 Nasal Cannula 2 09/24/16 17:32 82 16 138/62 99 Nasal Cannula 2 09/24/16 16:35 98.3 80 17 119/58 99 Nasal Cannula 2 09/24/16 16:20 98.5 79 17 125/60 100 Nasal Cannula 2 09/24/16 16:05 98.5 75 17 118/59 99 Nasal Cannula 09/24/16 16:00 99.2 79 18 132/60 100 Nasal Cannula 2 09/24/16 15:55 98.9 74 17 128/62 99 Nasal Cannula 2 09/24/16 15:50 98.7 77 17 131/60 97 Nasal Cannula 2 09/24/16 15:38 69 16 131/60 96 Nasal Cannula 2 09/24/16 14:09 91 Room Air 09/24/16 13:35 96 Nasal Cannula 3 09/24/16 13:30 98.2 70 16 174/74 90 Room Air 09/24/16 13:18 98.2 78 18 138/63 98 I/O 09/24/16 09/24/16 09/24/16 09/25/16 09/25/16 09/25/16 07:00 15:00 23:00 07:00 15:00 23:00 Intake Total 500 ml Output Total 100 ml Balance 400 ml Intake Packed Cells 500 ml Output Urine Total 100 ml # Voids 1 3 Result Diagram: 09/24/16 2130 09/24/16 1342 Other Results Last Impressions Head CT 09/24/16 0000 Signed Impressions: Service Date/Time: Saturday, September 24, 2016 14:02 - CONCLUSION: 1. Moderate periventricular and subcortical white matter small vessel ischemic changes bilaterally. 2. No acute infarct, acute hemorrhage, mass effect or extra- axial fluid collections. Dave Vargas MD Chest X-Ray 09/24/16 0000 Signed Impressions: Service Date/Time: Saturday, September 24, 2016 13:44 - CONCLUSION: 1. Cardiomegaly. 2. No acute focal pulmonary infiltrate or pulmonary vascular congestion. Dave Vargas MD Cervical Spine CT 09/24/16 0000 Signed Impressions: Service Date/Time: Saturday, September 24, 2016 14:07 - CONCLUSION: 1. No acute fracture or prevertebral soft tissue swelling. 2. Moderate bilateral foraminal narrowing at C4-5, C5-6 and C6-7. 3. Reversal of the normal cervical lordosis. 4. Mild spinal stenosis at C4-5 and C5-6. Dave Vargas MD Medications and IVs Active Medications Cholecalciferol (Vitamin D3) 1,000 units DAILY PO Last administered on 08:46; Admin Dose 1,000 UNITS; Start 09/25/16 at 09:00 Epinephrine HCl (Epipen Inj) 0.3 mg ONCE PRN SQ; Start 09/24/16 at 15:30; Stop 09/24/16 at 21:00; Status DC Lactated Ringer's (Lr 1000 ml Inj) 1,000 ml @ 100 mls/hr Q10H IV Last administered on 09/24/16 23:05; Admin Dose 100 MLS/HR; Start 09/24/16 at 16:00 Metoprolol Tartrate (Lopressor) 25 mg Q12HR PO Last administered on 09/25/16 08 :46; Admin Dose 25 MG; Start 09/24/16 at 21:00 Multivitamins 1 tab 1 tab DAILY PO Last administered on 09/25/16 08:46; Admin Dose 1 TAB; Start 09/25/16 at 09:00 Naloxone HCl (Narcan Inj) 0.4 mg UNSCH PRN IV; Start 09/24/16 at 15:30 Ondansetron HCl (Zofran Inj) 4 mg ONCE ONCE IVP Last administered on 09/24/16 13:51; Admin Dose 4 MG; Start 09/24/16 at 13:45; Stop 09/24/16 at 13:46; Status DC Ondansetron HCl (Zofran Inj) 4 mg Q6H PRN IVP Last administered on 09/25/16 00 :58; Admin Dose 4 MG; Start 09/24/16 at 15:30 Pantoprazole Sodium 80 mg/ Sodium Chloride 35 ml @ 420 mls/hr ONCE ONCE IV Last administered on 09/24/16 14:37; Admin Dose 420 MLS/HR; Start 09/24/16 at 13:45; Stop 09/24/16 at 13:49; Status DC Pantoprazole Sodium/Sodium Chloride (Protonix Inj/NS Inj) 100 ml @ 10 mls/hr Q10H IV Last administered on 09/24/16 23:02; Admin Dose 10 MLS/HR; Start at 13:45 Sodium Chloride (NS Flush) 2 ml BID IV FLUSH; Start 09/24/16 at 21:00 Sodium Chloride (NS Flush) 2 ml UNSCH PRN IV FLUSH; Start 09/24/16 at 15:30 Sodium Chloride 2 ml 2 ml UNSCH PRN IVF; Start 09/24/16 at 13:45; Stop at 15:21; Status DC Trimethoprim/ Sulfamethoxazole (Bactrim 400-80 Mg) 1 tab Q12H PO; Start at 11:00 ROS General: Fatigue (improving), Weakness, Other (10 point ROS done. positives noted, including UTI, otherwise negative) GI: N/V (resoved today, no further bleeding) /[employer]: Dysuria (occ. UTI) Physical Exam Physical Exam PHYSICAL EXAMINATION GENERAL: This is a well-developed, well-nourished female who appears to be in no acute distress. She is alert and awake,oriented HEAD: Normocephalic without any lesion or mass noted. Facial features appear symmetric. OROPHARYNGEAL: Oropharynx without erythema or edema. NECK: Supple. No nuchal rigidity or lymphadenopathy. Trachea midline without deviation. CARDIAC: Regular rhythm, regular rate, S1 and S2 are heard. distant; no gallops or rubs. LUNGS: Clear to auscultation bilaterally. no wheeze, no rhonchi No use of accessory muscles on inspiration or expiration. ABDOMEN: Soft, nontender to mild palpation, no organomegaly or masses. Bowel sounds are heard in all four quadrants. No rebound. No guarding. EXTREMITIES: trace edema. Pulses equal NEUROLOGICAL: Patient mood and affect appropriate. No focal deficit SKIN:Warm and moist Objective Remarks Im doing ok today. A/P Assessment and Plan (1) Upper GI bleed (2) Syncope (3) Dyslipidemia (4) A-fib (5) Hx of angioedema (6) History of cardioversion UTI Upper GI bleed, on chronic anticoagulation. hgb stable for now, 8.2 No further bleeding noted Nausea subsided -continue with Protonix drip Gastroenterology consulted , appreciate, EGD today, NPO for now, pending Hold Tu Rashid, currently SR, had cardioversion July 25. telemetry, SR, now metoprolol 25 mg by mouth twice a day Consult cardiology, Dr. madsen for evaluation and recommendations on anticoagulationafter EDG Recent angioedema secondary to lisinopril, required mechanical ventilation Note this is a severe allergy UTI, culture pending, started Bactrim DS PO. SCDs for DVT prophylaxis Protonix for GI prophylaxis DC planning, when GI feels stable and cardiology makes recommendations on blood thinners. Discussed With: Nurse, Family (pt. and son), Other (Dr. Arriaga, seen on his behalf) Randi Lo Sep 25, 2016 11:55
[2016-09-25 12:12] LABS: AUTOMATED NEUTROPHIL # 7.1 TH/MM3 (1.8-7.7); BASOPHIL % 0.4 % (0.0-2.0); EOSINOPHIL # 0.1 TH/MM3 (0-0.4); EOSINOPHIL % 0.7 % (0.0-4.0); HEMATOCRIT 21.3 % (35.0-46.0); HEMO FLAGS DIFF FINAL; LYMPHOCYTE # 1.4 TH/MM3 (1.0-4.8); MEAN CELL VOLUME 89.5 FL (80.0-100.0); MEAN CORPUSCULAR HEMOGLOBIN 30.2 PG (27.0-34.0); MEAN CORPUSCULAR HGB CONC 33.8 % (32.0-36.0); MONO % 7.9 % (0.0-8.0); PLATELET COUNT 177 TH/MM3 (150-450); RED BLOOD COUNT 2.38 MIL/MM3 (4.00-5.30); WHITE BLOOD COUNT 9.4 TH/MM3 (4.0-11.0)
[2016-09-25 12:32] LABS: BICARBONATE 27.3 MEQ/L (21.0-32.0); INDIRECT BILIRUBIN 0.3 MG/DL (0.0-0.8); TOTAL BILIRUBIN ADULT 0.5 MG/DL (0.2-1.0)
[2016-09-25] MEDS ORDERED: POVIDONE IODINE 5% (ANTISEPSIS KIT) 4 APPLICATIONS EACH NARE PRN (13:30)
[2016-09-25] MEDS ORDERED: INSULIN HUMAN REGULAR 1,000 UNITS/10 ML VIAL SQ PRN (13:30)
[2016-09-25] MEDS ORDERED: SODIUM CHLORID 0.9% 500 ML IV PRN (13:30)
[2016-09-25] MEDS ORDERED: CHLORHEXIDINE GLUCONATE 2 % 1 PACK (2 CLOTHS) TOPICAL PRN (13:30)
[2016-09-25] MEDS ORDERED: METOPROLOL TARTRATE 25 MG TAB PO PRN (13:30)
[2016-09-25] MEDS ORDERED: LACTATED RINGER'S 1000 ML IV PRN (13:30)
[2016-09-25] MEDS ORDERED: PROPOFOL 200 MG/20 ML AMP IV ONE (13:35)
--- NOTE | 2016-09-25 13:51 | GIPROC ---
[facility] [address] [facility]. [facility], [address] EGD PROCEDURE REPORT EXAM DATE: 09/25/2016 PATIENT NAME: Elizabeth Atwood MR #: [id number] BIRTHDATE: 1935 ATTENDING: Tonja Hahn MD ORDER #: [id number] HOLLOW TILE PARTITION ERECTOR: Garrett Davis Schulman, Neal, and Sarita Alamo STATUS: inpatient INDICATIONS: The patient is a 80 yr old female here for an EGD due to gi bleeding, anemia, syncope PROCEDURE PERFORMED: EGD w/ biopsy EGD w/ ablation clips application MEDICATIONS: None and Per Anesthesia. TOPICAL ANESTHETIC: none CONSENT: The patient understands the risks and benefits of the procedure and understands that these risks include, but are not limited to: sedation, allergic reaction, infection, perforation and/or bleeding. Alternative means of evaluation and treatment include, among others: physical exam, x-rays, and/or surgical intervention. The patient elects to proceed with this endoscopic procedure. medical equipment was checked for proper function. Hand hygiene and appropriate measures for infection prevention was taken. After the risks, benefits and alternatives of the procedure were thoroughly explained, Informed consent was verified, confirmed and timeout was successfully executed by the treatment team. The patient was anesthetized with topical anesthesia and the Pentax [id number] and [id number] endoscope was introduced through the mouth and advanced to the second portion of the duodenum. Retroflexed views revealed a hiatal hernia The gastroscope was then slowly withdrawn and removed. Gastritis antrum-biopsy ulcer antrum, vissible vessel , 3 clips applied, ablation using gold probe Schatzki's ring hiatal hernia. ADVERSE EVENTS: There were no complications. IMPRESSIONS: 1. Gastritis antrum-biopsy ulcer antrum, vissible vessel , 3 clips applied, ablation using gold probe Schatzki's ring hiatal hernia 2. Retroflexed views revealed a hiatal hernia RECOMMENDATIONS: 1. Anti-reflux regimen 2. Continue PPI 3. Clear liquid diet transfuse 1 unit prbc monitor hb/ht PATIENT CONDITION: stable DISPOSITION: Inpatient REPEAT EXAM: EGD pending biopsy results Tonja Hahn MD eSigned: Tonja Hahn MD 09/25/2016 1:50 PM cc: PATIENT NAME: Elizabeth Atwood MR#: [id number]
[2016-09-25] MEDS ORDERED: DO NOT ADM ANY ANTICOAGULANT DRUGS PRN (14:09)
--- NOTE | 2016-09-25 16:39 | PD.CARD.PN ---
Subjective Subjective Remarks No CP or SOB, endoscopy w gastroduodenal ulcer Objective Medications Current Medications Medications (Trade) Dose Ordered Sig/[place] Route Start Time Stop Time Status Last Admin (Protonix Inj/NS Inj) 100 ml @ 10 mls/hr Q10H IV 09/24/16 13:45 09/25/16 09:00 (Vitamin D3) 1,000 units DAILY PO 09/25/16 09:00 09/25/16 08:46 (Lopressor) 25 mg Q12HR PO 09/24/16 21:00 09/25/16 08:46 Multivitamins 1 tab 1 tab DAILY PO 09/25/16 09:00 09/25/16 08:46 (Lr 1000 ml Inj) 1,000 ml @ 100 mls/hr Q10H IV 09/24/16 16:00 09/24/16 23:05 (NS Flush) 2 ml UNSCH PRN IV FLUSH 09/24/16 15:30 (NS Flush) 2 ml BID IV FLUSH 09/24/16 21:00 (Zofran Inj) 4 mg Q6H PRN IVP 09/24/16 15:30 09/25/16 00:58 (Narcan Inj) 0.4 mg UNSCH PRN IV 09/24/16 15:30 Trimethoprim/ Sulfamethoxazole 1 tab 1 tab Q12H PO 09/25/16 11:00 Lactated Ringer's 1,000 ml @ 30 mls/hr Q24H PRN IV 09/25/16 13:30 09/28/16 13:29 (NS 500 ml Inj) 500 ml @ 30 mls/hr [id number] PRN IV 09/25/16 13:30 09/28/16 13:29 Vital Signs / I&O Vital Signs Date Time Temp Pulse Resp B/P Pulse Ox O2 Delivery O2 Flow Rate FiO2 09/25/16 14:00 77 18 117/54 95 09/25/16 13:50 79 18 114/53 94 09/25/16 13:39 97.9 81 18 125/53 95 09/25/16 12:00 97.3 83 20 118/58 95 09/25/16 08:00 96.9 92 20 152/67 96 09/25/16 04:00 98.9 79 18 128/58 97 09/25/16 00:00 98.5 84 20 125/78 98 09/24/16 20:00 98.8 77 18 123/58 95 09/24/16 18:01 99.0 81 17 144/63 99 Nasal Cannula 2 09/24/16 17:32 82 16 138/62 99 Nasal Cannula 2 I/O 09/24/16 09/24/16 09/24/16 09/25/16 09/25/16 09/25/16 07:00 15:00 23:00 07:00 15:00 23:00 Intake Total 500 ml 200 ml Output Total 100 ml Balance 400 ml 200 ml Intake Packed Cells 500 ml Other 200 ml Output Urine Total 100 ml # Voids 1 3 2 # Bowel Movements 1 Physical Exam GENERAL: In NAD SKIN: Warm and dry. HEAD: Normocephalic. EYES: No scleral icterus. No injection or drainage. NECK: Supple, trachea midline. No JVD or lymphadenopathy. CARDIOVASCULAR: Regular rate and rhythm without murmurs, gallops, or rubs. RESPIRATORY: Breath sounds equal bilaterally. No accessory muscle use. GASTROINTESTINAL: Abdomen soft, non-tender, nondistended. MUSCULOSKELETAL: No cyanosis, or edema. Laboratory Laboratory Tests Test 09/24/16 09/24/16 09/25/16 09/25/16 18:30 21:30 11:55 14:23 Urine Color LIGHT-YELLOW Urine Turbidity CLEAR Urine pH 6.5 Urine Specific [place] 1.016 Urine Protein NEG mg/dL Urine Glucose (UA) NEG mg/dL Urine Ketones 10 mg/dL Urine Occult Blood NEG Urine Nitrite NEG Urine Bilirubin NEG Urine Urobilinogen LESS THAN 2.0 MG/DL Urine Leukocyte Esterase MOD Urine RBC 1 /hpf Urine WBC 17 /hpf Urine Transitional Epithelial <1 /hpf Cells Microscopic Urinalysis Comment CULTURE INDICATED Hemoglobin 8.2 GM/DL 7.2 GM/DL Hematocrit 24.2 % 21.3 % White Blood Count 9.4 TH/MM3 Red Blood Count 2.38 MIL/MM3 Mean Corpuscular Volume 89.5 FL Mean Corpuscular Hemoglobin 30.2 PG Mean Corpuscular Hemoglobin 33.8 % Concent Red Cell Distribution Width 16.0 % Platelet Count 177 TH/MM3 Mean Platelet Volume 8.7 FL Neutrophils (%) (Auto) 76.0 % Lymphocytes (%) (Auto) 15.0 % Monocytes (%) (Auto) 7.9 % Eosinophils (%) (Auto) 0.7 % Basophils (%) (Auto) 0.4 % Neutrophils # (Auto) 7.1 TH/MM3 Lymphocytes # (Auto) 1.4 TH/MM3 Monocytes # (Auto) 0.7 TH/MM3 Eosinophils # (Auto) 0.1 TH/MM3 Basophils # (Auto) 0.0 TH/MM3 CBC Comment DIFF FINAL Differential Comment Sodium Level 143 MEQ/L Potassium Level 4.0 MEQ/L Chloride Level 108 MEQ/L Carbon Dioxide Level 27.3 MEQ/L Anion Gap 8 MEQ/L Blood Urea Nitrogen 43 MG/DL Creatinine 0.78 MG/DL Estimat Glomerular Filtration 71 ML/MIN Rate Random Glucose 92 MG/DL Calcium Level 8.5 MG/DL Total Bilirubin 0.5 MG/DL Direct Bilirubin 0.2 MG/DL Indirect Bilirubin 0.3 MG/DL Aspartate Amino Transf 18 U/L (AST/SGOT) Alanine Aminotransferase 28 U/L (ALT/SGPT) Alkaline Phosphatase 52 U/L Total Protein 5.3 GM/DL Albumin 2.7 GM/DL Blood Type A POSITIVE Crossmatch Leukocyte-Reduced Red Blood Cells Blood Bank Comment Imaging Last Impressions Head CT 09/24/16 0000 Signed Impressions: Service Date/Time: Saturday, September 24, 2016 14:02 - CONCLUSION: 1. Moderate periventricular and subcortical white matter small vessel ischemic changes bilaterally. 2. No acute infarct, acute hemorrhage, mass effect or extra- axial fluid collections. Dave Vargas MD Chest X-Ray 09/24/16 0000 Signed Impressions: Service Date/Time: Saturday, September 24, 2016 13:44 - CONCLUSION: 1. Cardiomegaly. 2. No acute focal pulmonary infiltrate or pulmonary vascular congestion. Dave Vargas MD Cervical Spine CT 09/24/16 0000 Signed Impressions: Service Date/Time: Saturday, September 24, 2016 14:07 - CONCLUSION: 1. No acute fracture or prevertebral soft tissue swelling. 2. Moderate bilateral foraminal narrowing at C4-5, C5-6 and C6-7. 3. Reversal of the normal cervical lordosis. 4. Mild spinal stenosis at C4-5 and C5-6. Dave Vargas MD Assessment and Plan Problem List: (1) Syncope (2) Upper GI bleed (3) A-fib (4) Anemia Assessment and Plan Endoscopy w gastroduodenal ulcer, successfully treated. Continue monitoring. Resume anticoagulation in 48-72 hrs if stable. Problem Qualifiers (1) Syncope: Qualified Code: R55 - Syncope, unspecified syncope type (2) A-fib: Qualified Code: I48.91 - Atrial fibrillation, unspecified type Kandi Saldaña MD Sep 25, 2016 16:39
[2016-09-25] MEDS ORDERED: ACETAMINOPHEN 325 MG TAB PO PRN (22:00)
[2016-09-26] VITALS (15 sets, daily range): BP systolic 104–154; BP diastolic 50–68; PULSE 63–77; RESP 16–20; TEMP 97.4–98.7; O2SAT 92–98
[2016-09-26] MEDS: SULFAMETHOXAZOLE-TRIMETHOPRIM 400-80 MG TAB PO SCH ×2 (00:26→11:03)
[2016-09-26] MEDS: PANTOPRAZOLE INJ 80 MG in SODIUM CHLORIDE 0.9% INJ 100 ML IV SCH ×2 (04:38→15:17)
[2016-09-26] MEDS: LACTATED RINGER'S 1000 ML INJ 1,000 ML IV SCH ×2 (08:00→17:45)
[2016-09-26 08:07] LABS: AUTOMATED NEUTROPHIL # 4.4 TH/MM3 (1.8-7.7); BASOPHIL % 0.4 % (0.0-2.0); EOSINOPHIL # 0.3 TH/MM3 (0-0.4); EOSINOPHIL % 3.7 % (0.0-4.0); HEMATOCRIT 22.3 % (35.0-46.0); HEMO FLAGS DIFF FINAL; LYMPH % 23.7 % (9.0-44.0); LYMPHOCYTE # 1.7 TH/MM3 (1.0-4.8); MEAN CELL VOLUME 90.1 FL (80.0-100.0); MEAN CORPUSCULAR HEMOGLOBIN 29.6 PG (27.0-34.0); MEAN CORPUSCULAR HGB CONC 32.9 % (32.0-36.0); MONO % 10.6 % (0.0-8.0); NEUT % 61.6 % (16.0-70.0); PLATELET COUNT 149 TH/MM3 (150-450); RED BLOOD COUNT 2.47 MIL/MM3 (4.00-5.30); RED CELL DISTRIBUTION WIDTH 15.7 % (11.6-17.2); WHITE BLOOD COUNT 7.2 TH/MM3 (4.0-11.0)
[2016-09-26] MEDS: CHOLECALCIFEROL (VIT D3) 1000 UNIT TAB PO SCH (08:44)
[2016-09-26] MEDS: MULTIVITAMIN TAB PO SCH (08:45)
[2016-09-26] MEDS: METOPROLOL TARTRATE 25 MG TAB PO SCH ×2 (08:45→20:25)
[2016-09-26] MEDS: SODIUM CHLORIDE 0.9% FLUSH 10 ML FLUSH IV FLUSH SCH (08:46)
--- NOTE | 2016-09-26 11:35 | HHI.PR ---
Subjective Remarks resting in bed alert, oriented No active bleeding EGD yesterday fever last pm, UTI Objective Objective Results - Vital Signs Date Time Temp Pulse Resp B/P Pulse Ox O2 Delivery O2 Flow Rate FiO2 09/26/16 08:00 98.4 73 19 130/59 92 09/26/16 04:42 98.5 76 18 92 09/26/16 04:00 98.5 76 18 132/57 92 09/26/16 02:48 76 18 132/57 93 09/26/16 02:25 98.7 70 16 94 09/26/16 02:10 97.5 67 20 117/57 09/26/16 00:00 97.8 73 18 104/50 92 09/25/16 21:55 100.4 09/25/16 21:00 78 09/25/16 20:00 100.4 97 18 130/60 95 09/25/16 18:31 96 Nasal Cannula 2.00 09/25/16 18:30 101.0 99 24 133/60 09/25/16 16:00 97.8 75 20 123/58 96 09/25/16 14:00 77 18 117/54 95 09/25/16 13:50 79 18 114/53 94 09/25/16 13:39 97.9 81 18 125/53 95 09/25/16 12:00 97.3 83 20 118/58 95 I/O 09/25/16 09/25/16 09/25/16 09/26/16 09/26/16 09/26/16 07:00 15:00 23:00 07:00 15:00 23:00 Intake Total 200 ml 420 ml Balance 200 ml 420 ml Intake Oral 420 ml Other 200 ml # Voids 3 2 3 # Bowel Movements 1 1 Result Diagram: 09/26/16 0720 09/25/16 1155 Other Results Last Impressions Head CT 09/24/16 0000 Signed Impressions: Service Date/Time: Saturday, September 24, 2016 14:02 - CONCLUSION: 1. Moderate periventricular and subcortical white matter small vessel ischemic changes bilaterally. 2. No acute infarct, acute hemorrhage, mass effect or extra- axial fluid collections. Dave Vargas MD Chest X-Ray 09/24/16 0000 Signed Impressions: Service Date/Time: Saturday, September 24, 2016 13:44 - CONCLUSION: 1. Cardiomegaly. 2. No acute focal pulmonary infiltrate or pulmonary vascular congestion. Dave Vargas MD Cervical Spine CT 09/24/16 0000 Signed Impressions: Service Date/Time: Saturday, September 24, 2016 14:07 - CONCLUSION: 1. No acute fracture or prevertebral soft tissue swelling. 2. Moderate bilateral foraminal narrowing at C4-5, C5-6 and C6-7. 3. Reversal of the normal cervical lordosis. 4. Mild spinal stenosis at C4-5 and C5-6. Dave Vargas MD Medications and IVs Active Medications Acetaminophen (Tylenol) 650 mg QID PRN PO Last administered on 09/25/16t 22:05 ; Admin Dose 650 MG; Start 09/25/16 at 22:00 Lactated Ringer's 1,000 ml @ 30 mls/hr Q24H PRN IV; Start 09/25/16 at 13:30; Stop 09/28/16 at 13:29 Miscellaneous Information ALL NURSING DEPARTME... UNSCH PRN .XX; Start at 14:09; Stop 09/26/16 at 14:08 Propofol (Diprivan 200 Mg/20 ml Inj) 130 mg STK-MED ONCE IV; Start 09/25/16 at 13:35; Stop 09/25/16 at 17:32; Status DC Sodium Chloride (NS 500 ml Inj) 500 ml @ 30 mls/hr [id number] PRN IV; Start at 13:30; Stop 09/28/16 at 13:29 ROS General: Weakness (improving), Other (10 point ROS done, positives noted.) GI: BM (today, normal) Physical Exam Physical Exam PHYSICAL EXAMINATION GENERAL: This is a well-developed, well-nourished female who appears to be in no acute distress. She is alert and awake, HEAD: Normocephalic without any lesion or mass noted. Facial features appear symmetric. OROPHARYNGEAL: Oropharynx without erythema or edema. NECK: Supple. No nuchal rigidity or lymphadenopathy. Trachea midline without deviation. CARDIAC: Regular rhythm, regular rate, S1 and S2 are heard. LUNGS: Clear to auscultation bilaterally. ABDOMEN: Soft, nontender, Bowel sounds are heard in all four quadrants. No rebound. No guarding. no N&V EXTREMITIES: no edema. Pulses equal bilateral. NEUROLOGICAL: Patient mood and affect appropriate. No focal deficit SKIN:Warm and moist Objective Remarks Im feeling better. A/P Assessment and Plan (1) Upper GI bleed (2) Syncope (3) Dyslipidemia (4) A-fib (5) Hx of angioedema (6) History of cardioversion UTI Upper GI bleed, on chronic anticoagulation. hgb stable for now, 8.2 No further bleeding noted Nausea subsided -continue with Protonix drip, labs show hgb 7.3 steady Gastroenterology consulted , appreciate, EGD yesterday, Hold Eliquis Afib, currently SR, had cardioversion July 25. telemetry, SR, now metoprolol 25 mg by mouth twice a day Consult cardiology, Dr. madsen for evaluation and recommendations on anticoagulationafter EDG, patient states she was told 2 more days. Recent angioedema secondary to lisinopril, required mechanical ventilation Note this is a severe allergy UTI, culture pending, started Bactrim DS PO. SCDs for DVT prophylaxis Protonix for GI prophylaxis DC planning, when GI feels stable and cardiology makes recommendations on blood thinners. UTI treatment Discussed With: Nurse, Family (pt. and son), Other (Dr. Arriaga, seen on his behalf) Randi Lo Sep 26, 2016 11:35
--- NOTE | 2016-09-26 18:55 | PD.CARD.PN ---
Subjective Subjective Remarks No CP or SOB, no GIB Objective Medications Current Medications Medications (Trade) Dose Ordered Sig/[place] Route Start Time Stop Time Status Last Admin (Protonix Inj/NS Inj) 100 ml @ 10 mls/hr Q10H IV 09/24/16 13:45 09/26/16 15:17 (Vitamin D3) 1,000 units DAILY PO 09/25/16 09:00 09/26/16 08:44 (Lopressor) 25 mg Q12HR PO 09/24/16 21:00 09/26/16 08:45 Multivitamins 1 tab 1 tab DAILY PO 09/25/16 09:00 09/26/16 08:45 (Lr 1000 ml Inj) 1,000 ml @ 100 mls/hr Q10H IV 09/24/16 16:00 09/26/16 17:45 (NS Flush) 2 ml UNSCH PRN IV FLUSH 09/24/16 15:30 (NS Flush) 2 ml BID IV FLUSH 09/24/16 21:00 09/26/16 08:46 (Zofran Inj) 4 mg Q6H PRN IVP 09/24/16 15:30 09/25/16 00:58 (Narcan Inj) 0.4 mg UNSCH PRN IV 09/24/16 15:30 Trimethoprim/ Sulfamethoxazole 1 tab 1 tab Q12H PO 09/25/16 11:00 09/26/16 11:03 Lactated Ringer's 1,000 ml @ 30 mls/hr Q24H PRN IV 09/25/16 13:30 09/28/16 13:29 (NS 500 ml Inj) 500 ml @ 30 mls/hr [id number] PRN IV 09/25/16 13:30 09/28/16 13:29 (Tylenol) 650 mg QID PRN PO 09/25/16 22:00 09/25/16 22:05 Vital Signs / I&O Vital Signs Date Time Temp Pulse Resp B/P Pulse Ox O2 Delivery O2 Flow Rate FiO2 09/26/16 18:27 75 09/26/16 18:14 93 Nasal Cannula 2.00 09/26/16 16:00 97.6 73 19 151/68 93 09/26/16 12:32 95 Nasal Cannula 2.00 09/26/16 12:00 97.9 71 19 143/64 96 09/26/16 08:00 98.4 73 19 130/59 92 09/26/16 04:42 98.5 76 18 92 09/26/16 04:00 98.5 76 18 132/57 92 09/26/16 02:48 76 18 132/57 93 09/26/16 02:25 98.7 70 16 94 09/26/16 02:10 97.5 67 20 117/57 09/26/16 00:00 97.8 73 18 104/50 92 09/25/16 21:55 100.4 09/25/16 21:00 78 09/25/16 20:00 100.4 97 18 130/60 95 I/O 09/25/16 09/25/16 09/25/16 09/26/16 09/26/16 09/26/16 07:00 15:00 23:00 07:00 15:00 23:00 Intake Total 200 ml 420 ml 240 ml Balance 200 ml 420 ml 240 ml Intake Oral 420 ml 240 ml Other 200 ml # Voids 3 2 3 3 # Bowel Movements 1 1 0 Physical Exam GENERAL: In NAD SKIN: Warm and dry. HEAD: Normocephalic. EYES: No scleral icterus. No injection or drainage. NECK: Supple, trachea midline. No JVD or lymphadenopathy. CARDIOVASCULAR: Regular rate and rhythm without murmurs, gallops, or rubs. RESPIRATORY: Breath sounds equal bilaterally. No accessory muscle use. GASTROINTESTINAL: Abdomen soft, non-tender, nondistended. MUSCULOSKELETAL: No cyanosis, or edema. Laboratory Laboratory Tests Test 09/25/16 09/26/16 23:45 07:20 Blood Type A POSITIVE Crossmatch Leukocyte-Reduced Red Blood Cells Blood Bank Comment White Blood Count 7.2 TH/MM3 Red Blood Count 2.47 MIL/MM3 Hemoglobin 7.3 GM/DL Hematocrit 22.3 % Mean Corpuscular Volume 90.1 FL Mean Corpuscular Hemoglobin 29.6 PG Mean Corpuscular Hemoglobin 32.9 % Concent Red Cell Distribution Width 15.7 % Platelet Count 149 TH/MM3 Mean Platelet Volume 9.0 FL Neutrophils (%) (Auto) 61.6 % Lymphocytes (%) (Auto) 23.7 % Monocytes (%) (Auto) 10.6 % Eosinophils (%) (Auto) 3.7 % Basophils (%) (Auto) 0.4 % Neutrophils # (Auto) 4.4 TH/MM3 Lymphocytes # (Auto) 1.7 TH/MM3 Monocytes # (Auto) 0.8 TH/MM3 Eosinophils # (Auto) 0.3 TH/MM3 Basophils # (Auto) 0.0 TH/MM3 CBC Comment DIFF FINAL Differential Comment Imaging Last Impressions Head CT 09/24/16 0000 Signed Impressions: Service Date/Time: Saturday, September 24, 2016 14:02 - CONCLUSION: 1. Moderate periventricular and subcortical white matter small vessel ischemic changes bilaterally. 2. No acute infarct, acute hemorrhage, mass effect or extra- axial fluid collections. Dave Vargas MD Chest X-Ray 09/24/16 0000 Signed Impressions: Service Date/Time: Saturday, September 24, 2016 13:44 - CONCLUSION: 1. Cardiomegaly. 2. No acute focal pulmonary infiltrate or pulmonary vascular congestion. Dave Vargas MD Cervical Spine CT 09/24/16 0000 Signed Impressions: Service Date/Time: Saturday, September 24, 2016 14:07 - CONCLUSION: 1. No acute fracture or prevertebral soft tissue swelling. 2. Moderate bilateral foraminal narrowing at C4-5, C5-6 and C6-7. 3. Reversal of the normal cervical lordosis. 4. Mild spinal stenosis at C4-5 and C5-6. Dave Vargas MD Assessment and Plan Problem List: (1) Syncope (2) Upper GI bleed (3) A-fib (4) Anemia Assessment and Plan No recurrent GIB. Endoscopy w gastroduodenal ulcer, successfully treated. Continue monitoring. Resume anticoagulation using Xarelto tomorrow. Will schedule f/u soon. Problem Qualifiers (1) Syncope: Qualified Code: R55 - Syncope, unspecified syncope type (2) A-fib: Qualified Code: I48.91 - Atrial fibrillation, unspecified type Kandi Saldaña MD Sep 26, 2016 18:55
[2016-09-26] MEDS ORDERED: FUROSEMIDE 20 MG/2 ML VIAL IV PUSH ONE (20:00)
[2016-09-27] VITALS: BP 133/60; PULSE 72; RESP 20; TEMP 97.6; O2SAT 94
[2016-09-27] MEDS: SULFAMETHOXAZOLE-TRIMETHOPRIM 400-80 MG TAB PO SCH ×2 (00:41→10:28)
[2016-09-27] MEDS: SODIUM CHLORIDE 0.9% FLUSH 10 ML FLUSH IV FLUSH SCH ×2 (00:41→08:11)
[2016-09-27 01:03] VITALS: BP 143/66; PULSE 70; RESP 20; TEMP 97.6; O2SAT 97
[2016-09-27 01:18] VITALS: BP 139/65; PULSE 67; RESP 20; TEMP 97.9; O2SAT 96
[2016-09-27] MEDS: PANTOPRAZOLE INJ 80 MG in SODIUM CHLORIDE 0.9% INJ 100 ML IV SCH ×2 (03:45→10:29)
[2016-09-27] MEDS: LACTATED RINGER'S 1000 ML INJ 1,000 ML IV SCH (03:45)
[2016-09-27 04:00] VITALS: BP 141/67; PULSE 65; RESP 20; TEMP 97.6; O2SAT 94
[2016-09-27 08:00] VITALS: BP 158/66; PULSE 65; PULSE 73; RESP 20; TEMP 97.3; O2SAT 95
[2016-09-27] MEDS: MULTIVITAMIN TAB PO SCH (08:10)
[2016-09-27] MEDS: METOPROLOL TARTRATE 25 MG TAB PO SCH (08:10)
[2016-09-27] MEDS: ONDANSETRON HCL 4 MG/2 ML VIAL IVP PRN (08:11)
[2016-09-27] MEDS: CHOLECALCIFEROL (VIT D3) 1000 UNIT TAB PO SCH (08:11)
[2016-09-27 09:04] LABS: AUTOMATED NEUTROPHIL # 4.7 TH/MM3 (1.8-7.7); BASOPHIL % 0.4 % (0.0-2.0); EOSINOPHIL # 0.3 TH/MM3 (0-0.4); EOSINOPHIL % 3.9 % (0.0-4.0); HEMATOCRIT 29.6 % (35.0-46.0); HEMO FLAGS DIFF FINAL; LYMPH % 18.2 % (9.0-44.0); LYMPHOCYTE # 1.3 TH/MM3 (1.0-4.8); MEAN CORPUSCULAR HEMOGLOBIN 29.7 PG (27.0-34.0); MEAN CORPUSCULAR HGB CONC 33.8 % (32.0-36.0); MONO % 10.4 % (0.0-8.0); NEUT % 67.1 % (16.0-70.0); PLATELET COUNT 153 TH/MM3 (150-450); RED BLOOD COUNT 3.37 MIL/MM3 (4.00-5.30); RED CELL DISTRIBUTION WIDTH 15.6 % (11.6-17.2)
[2016-09-27 09:37] LABS: BICARBONATE 27.6 MEQ/L (21.0-32.0)
--- NOTE | 2016-09-27 10:13 | HHI.GIFU ---
Subjective Remarks Resting in bed. No active bleeding. Tolerating diet. Mild nausea without vomiting. Denies any abdominal pain. Hoping to go home today (Christie Pizarro) Objective Vitals I&O Vital Signs Date Time Temp Pulse Resp B/P Pulse Ox O2 Delivery O2 Flow Rate FiO2 09/27/16 08:00 97.3 73 20 158/66 95 09/27/16 08:00 65 09/27/16 04:00 97.6 65 20 141/67 94 09/27/16 01:18 97.9 67 20 139/65 96 09/27/16 01:03 97.6 70 20 143/66 97 09/27/16 00:00 97.6 72 20 133/60 94 09/26/16 21:06 97.6 63 20 133/63 95 09/26/16 20:50 97.4 77 20 146/67 98 135/63 09/26/16 20:00 97.4 77 20 154/65 95 09/26/16 18:27 75 09/26/16 18:14 93 Nasal Cannula 2.00 09/26/16 16:00 97.6 73 19 151/68 93 09/26/16 12:32 95 Nasal Cannula 2.00 09/26/16 12:00 97.9 71 19 143/64 96 I/O 09/26/16 09/26/16 09/26/16 09/27/16 09/27/16 09/27/16 07:00 15:00 23:00 07:00 15:00 23:00 Intake Total 420 ml 240 ml 340 ml 1317 ml Balance 420 ml 240 ml 340 ml 1317 ml Intake Oral 420 ml 240 ml 340 ml IV Total 1317 ml # Voids 3 3 2 2 # Bowel Movements 1 0 Laboratory Laboratory Tests Test 09/26/16 09/27/16 09/27/16 19:11 07:41 07:44 Blood Type A POSITIVE Crossmatch Leukocyte-Reduced Red Blood Cells Blood Bank Comment White Blood Count 7.0 Red Blood Count 3.37 Hemoglobin 10.0 Hematocrit 29.6 Mean Corpuscular Volume 88.0 Mean Corpuscular Hemoglobin 29.7 Mean Corpuscular Hemoglobin 33.8 Concent Red Cell Distribution Width 15.6 Platelet Count 153 Mean Platelet Volume 9.1 Neutrophils (%) (Auto) 67.1 Lymphocytes (%) (Auto) 18.2 Monocytes (%) (Auto) 10.4 Eosinophils (%) (Auto) 3.9 Basophils (%) (Auto) 0.4 Neutrophils # (Auto) 4.7 Lymphocytes # (Auto) 1.3 Monocytes # (Auto) 0.7 Eosinophils # (Auto) 0.3 Basophils # (Auto) 0.0 CBC Comment DIFF FINAL Differential Comment Sodium Level 140 Potassium Level 3.0 Chloride Level 103 Carbon Dioxide Level 27.6 Anion Gap 9 Blood Urea Nitrogen 11 Creatinine 0.68 Estimat Glomerular Filtration 83 Rate Random Glucose 82 Calcium Level 8.6 Date/Time Procedure Status Source Growth 09/24/16 18:30 Urine Culture - Final Complete Urine Clean Catch 10-50,000 CFU/ML MIXED GRAM POSITIVE ... Imaging Last Impressions Head CT 09/24/16 0000 Signed Impressions: Service Date/Time: Saturday, September 24, 2016 14:02 - CONCLUSION: 1. Moderate periventricular and subcortical white matter small vessel ischemic changes bilaterally. 2. No acute infarct, acute hemorrhage, mass effect or extra- axial fluid collections. Dave Vargas MD Chest X-Ray 09/24/16 0000 Signed Impressions: Service Date/Time: Saturday, September 24, 2016 13:44 - CONCLUSION: 1. Cardiomegaly. 2. No acute focal pulmonary infiltrate or pulmonary vascular congestion. Dave Vargas MD Cervical Spine CT 09/24/16 0000 Signed Impressions: Service Date/Time: Saturday, September 24, 2016 14:07 - CONCLUSION: 1. No acute fracture or prevertebral soft tissue swelling. 2. Moderate bilateral foraminal narrowing at C4-5, C5-6 and C6-7. 3. Reversal of the normal cervical lordosis. 4. Mild spinal stenosis at C4-5 and C5-6. Dave Vargas MD Physical Exam HEENT: Normocephalic; atraumatic; no jaundice. Throat is clear. NECK: Neck is supple, no JVD, no lymphadenopathy. CHEST: CTA CARDIAC: RRR ABDOMEN: Soft, nondistended, nontender; no hepatosplenomegaly; bowel sounds are present in all four quadrants. EXTREMITIES: No clubbing, cyanosis, or edema. SKIN: Normal; no rash; no jaundice. MECHANIC SENIOR: No focal deficits; alert and oriented times three. (Christie Pizarro) Assessment and Plan Plan ASSESSMENT: - Upper GI bleed, hematemesis or coffee-ground emesis and recent melena. Patient is on Eliquis for atrial fibrillation (she last had this Saturday). She also takes Aleve 2 tabs daily for arthritic pain. She had an episode of coffee-ground emesis and melena about 2 weeks ago. She then did not have any further episodes until 09/24 when she became dizzy, passed out, and had another episode of coffee ground emesis. S/P EGD (09/25/16)--> 1. Gastritis antrum-biopsy ulcer antrum, vissible vessel , 3 clips applied, ablation using gold probe Schatzki's ring, hiatal hernia 2. Retroflexed views revealed a hiatal hernia. Pathology gastric antral mucosal biopsies with mild to moderate active chronic gastritis negative for intestinal metaplasia and dysplasia. The histopathology suggests the possibility of Helicobacter induced gastritis. The absence of he liquor backed or may be secondary to sampling or a result of the previously treated patient. The serologic determination of Helicobacter antibodies were the stool examination for Helicobacter antigens may be helpful in this circumstance. Tolerating diet. No active bleeding. Status post 2 units of packed red blood cells. H&H 10.0/29.6 - Anemia secondary to acute blood loss. Status post 2 units of packed red blood cells. H&H 10.0/29.6 - Leukocytosis. Resolved - Atrial fibrillation, s/p cardioversion. Eliquis, last had saturday. Per cardiology note, the plan is to resume anticoagulation with Xarelto today - Hypothyroidism, HTN per primary PLAN: - Okay to DC home from GI standpoint - If patient has bowel movement, this will need to be sent for H. pylori antigen - Continue PPI with twice a day dosing - No NSAIDs, discussed with patient - Follow-up with Dr. Mcgee as outpateint - Pt seen and examined by Dr. Hahn and myself and this note is written on her behalf (Christie Pizarro) Christie Pizarro Sep 27, 2016 10:13 Tonja Hahn MD Sep 27, 2016 14:52
[2016-09-27] MEDS ORDERED: PROT40TA PO (10:55)
--- NOTE | 2016-09-27 10:56 | HHI.DCPOC ---
Discharge Care Plan Diagnosis: (1) Upper GI bleed (2) A-fib (3) Dyslipidemia (4) Hx of angioedema (5) History of cardioversion (6) Anemia Your Health Problems Are: Anxiety Bleeding Tendency Goals to Promote Your Health * To prevent worsening of your condition and complications * To maintain your health at the optimal level Directions to Meet Your Goals Take your medications as prescribed Follow your dietary instruction Follow activity as directed Keep your appointments as scheduled Take your immunizations and boosters as scheduled If your symptoms worsen call your PCP, if no PCP go to Urgent Care Center or Emergency Room Smoking is Dangerous to Your Health. Avoid second hand smoke Call the 24-hour hour crisis hotline for domestic abuse at [facility]. [facility] Sep 27, 2016 10:56
[2016-09-27] MEDS ORDERED: POTASSIUM CHLORIDE 25 MEQ EFFERVESCENT TAB PO ONE (11:00)
--- NOTE | 2016-09-27 12:01 | HHI.PR ---
Subjective Subjective Remarks mild nausea this morning, better now, was able to eat breakfast small amount of black stool no cp no sob states she has prescription for Xarelto at home as she can't afford the 400.00 monthly payment. Doesn't want script for Xarelto states Dr. Saldaña has sent her meds via patient assistance program Review of Systems Constitutional Constitutional Remarks 12 point ROS completed, negative except as noted above Vitals/Results Intake & Output 09/26/16 09/26/16 09/27/16 15:00 23:00 07:00 Intake Total 240 ml 340 ml 1317 ml Balance 240 ml 340 ml 1317 ml Intake Oral 240 ml 340 ml IV Total 1317 ml # Voids 3 2 2 # Bowel Movements 0 Vital Signs Vital Signs Date Time Temp Pulse Resp B/P Pulse Ox O2 Delivery O2 Flow Rate FiO2 09/27/16 08:00 97.3 73 20 158/66 95 09/27/16 08:00 65 09/27/16 04:00 97.6 65 20 141/67 94 09/27/16 01:18 97.9 67 20 139/65 96 09/27/16 01:03 97.6 70 20 143/66 97 09/27/16 00:00 97.6 72 20 133/60 94 09/26/16 21:06 97.6 63 20 133/63 95 09/26/16 20:50 97.4 77 20 146/67 98 135/63 09/26/16 20:00 97.4 77 20 154/65 95 09/26/16 18:27 75 09/26/16 18:14 93 Nasal Cannula 2.00 09/26/16 16:00 97.6 73 19 151/68 93 09/26/16 12:32 95 Nasal Cannula 2.00 09/26/16 12:00 97.9 71 19 143/64 96 CBC/BMP: 09/27/16 0741 09/27/16 0744 Lab Results Laboratory Tests Test 09/26/16 09/27/16 09/27/16 19:11 07:41 07:44 Blood Type A POSITIVE Crossmatch Leukocyte-Reduced Red Blood Cells Blood Bank Comment White Blood Count 7.0 TH/MM3 Red Blood Count 3.37 MIL/MM3 Hemoglobin 10.0 GM/DL Hematocrit 29.6 % Mean Corpuscular Volume 88.0 FL Mean Corpuscular Hemoglobin 29.7 PG Mean Corpuscular Hemoglobin 33.8 % Concent Red Cell Distribution Width 15.6 % Platelet Count 153 TH/MM3 Mean Platelet Volume 9.1 FL Neutrophils (%) (Auto) 67.1 % Lymphocytes (%) (Auto) 18.2 % Monocytes (%) (Auto) 10.4 % Eosinophils (%) (Auto) 3.9 % Basophils (%) (Auto) 0.4 % Neutrophils # (Auto) 4.7 TH/MM3 Lymphocytes # (Auto) 1.3 TH/MM3 Monocytes # (Auto) 0.7 TH/MM3 Eosinophils # (Auto) 0.3 TH/MM3 Basophils # (Auto) 0.0 TH/MM3 CBC Comment DIFF FINAL Differential Comment Sodium Level 140 MEQ/L Potassium Level 3.0 MEQ/L Chloride Level 103 MEQ/L Carbon Dioxide Level 27.6 MEQ/L Anion Gap 9 MEQ/L Blood Urea Nitrogen 11 MG/DL Creatinine 0.68 MG/DL Estimat Glomerular Filtration 83 ML/MIN Rate Random Glucose 82 MG/DL Calcium Level 8.6 MG/DL Physical Exam General General Appearance: Well Developed, Well Nourished, No Acute Distress, Comfortable, Pale Eyes Eye Exam: Pupils Equal, Pupils Reactive Ears & Nose Ears & Nose Exam: Nasal [place]uc[place] Throat Throat Exam: Oral Muc[place] & Moist Neck Neck Exam: Neck Supple, Trachea Midline Pulmonary Resp Exam: Clear Bilaterally, No Distress Cardiology CV Exam: Regular, Normal Sinus Rhythm, Good Perfusion Gastrointestinal/Abdomen GI Exam: Soft, Non-Tender, Bowel Sounds Present, Non-Distended Musculoskeletal MS Exam: Joints Intact Integumentary Skin Exam: Warm, Dry Extremeties Extremities Exam: No Edema, Pedal Pulses Palpable Neurologic Neuro Exam: Alert, Awake, Oriented, Speech Clear, Moving All Extremities, No Focal Deficits Psychiatric Psych Exam: Appropriate Responses VTE Prophylaxis VTE Prophylaxis Device: SCDs PUD Prophylasis PUD Prophylaxis: Protonix Assessment/Plan Problem List: (1) Syncope (2) Upper GI bleed (3) A-fib (4) Dyslipidemia (5) Hx of angioedema (6) History of cardioversion (7) Anemia Assessment/Plan 80-year-old elderly female presented to the emergency room with intermittent nausea, today she had syncopal episode, coffee-ground emesis and tarry stools. Was recently diagnosed with atrial fibrillation, put on Eliquis. Hemoglobin 8 on admission, last one was 14. Upper GI bleed, on chronic anticoagulation. S/P EGD (09/25/16)--> 1. Gastritis antrum-biopsy ulcer antrum, vissible vessel , 3 clips applied, ablation using gold probe Schatzki's ring, hiatal hernia 2. Retroflexed views revealed a hiatal hernia. Pathology gastric antral mucosal biopsies with mild to moderate active chronic gastritis negative for intestinal metaplasia and dysplasia. The histopathology suggests the possibility of Helicobacter induced gastritis. -stool for h pylori pending --S/P 2 units PRBC, HH stable 04/07.6 -Continue PPI 40 mg PO BID -Cleared for dc by GI, ok to resume anticoagulation. Xarelto recommended by Dr. Saldaña -Instructed to avoid NSAIDs -continue with present diet. Afib, currently SR, had cardioversion July 25. -Continuous cardiac telemetry continue metoprolol 25 mg by mouth twice a day -Consult cardiology, Dr. saldaña has evaluated, input appreciated. To start Xarelto today. Pt has medication at home, doesn't want script. She is on patient assistance program. Recent angioedema secondary to lisinopril, required mechanical ventilation -Stable continue to monitor Fever, UA + leukocyte esterase, cult. mixed GPC no more fever, no urinary symptoms. -on Bactrim PO Replace K SCDs for DVT prophylaxis Protonix for GI prophylaxis HH stable, no longer bleeding Stable for discharge Discharge home today F/U Dr. Saldaña next week F/U Dr. Mcgee F/U PCP Diet-soft Activity-as tolerated. D/W RN D/W Dr. Arriaga D/W pt This patient was seen by myself and Dr. Arriaga, this note is written on his behalf Discharge Minutes: 45 Problem Qualifiers (1) Syncope: Qualified Code: R55 - Syncope, unspecified syncope type (2) A-fib: Qualified Code: I48.91 - Atrial fibrillation, unspecified type (3) Anemia: Qualified Code: D64.9 - Anemia, unspecified type [facility] Sep 27, 2016 12:01
--- NOTE | 2016-09-27 16:48 | HHI.DS ---
Discharge Summary Admission Date Sep 24, 2016 at 14:59 Discharge Date: Sep 27, 2016 Admitting Diagnosis upper GI bleed, syncope (1) Upper GI bleed (2) Syncope (3) Dyslipidemia (4) A-fib (5) Hx of angioedema (6) History of cardioversion Procedures S/P EGD (09/25/16)--> 1. Gastritis antrum-biopsy ulcer antrum, vissible vessel , 3 clips applied, ablation using gold probe Schatzki's ring, hiatal hernia 2. Retroflexed views revealed a hiatal hernia. Pathology gastric antral mucosal biopsies with mild to moderate active chronic gastritis negative for intestinal metaplasia and dysplasia. The histopathology suggests the possibility of Helicobacter induced gastritis. CBC/BMP: 09/27/16 0741 09/27/16 0744 Significant Findings Laboratory Tests Test 09/24/16 09/24/16 09/25/16 09/26/16 18:30 21:30 11:55 07:20 Urine Ketones 10 mg/dL (NEG) Urine Leukocyte Esterase MOD (NEG) Urine WBC 17 /hpf (0-5) Hemoglobin 8.2 GM/DL 7.2 GM/DL 7.3 GM/DL (11.6-15.3) (11.6-15.3) (11.6-15.3) Hematocrit 24.2 % 21.3 % 22.3 % (35.0-46.0) (35.0-46.0) (35.0-46.0) Red Blood Count 2.38 MIL/MM3 2.47 MIL/MM3 (4.00-5.30) (4.00-5.30) Neutrophils (%) (Auto) 76.0 % (16.0-70.0) Chloride Level 108 MEQ/L (98-107) Blood Urea Nitrogen 43 MG/DL (7-18) Estimat Glomerular Filtration 71 ML/MIN (>89) Rate Total Protein 5.3 GM/DL (6.4-8.2) Albumin 2.7 GM/DL (3.4-5.0) Platelet Count 149 TH/MM3 (150-450) Monocytes (%) (Auto) 10.6 % (0.0-8.0) Test 09/27/16 09/27/16 07:41 07:44 Red Blood Count 3.37 MIL/MM3 (4.00-5.30) Hemoglobin 10.0 GM/DL (11.6-15.3) Hematocrit 29.6 % (35.0-46.0) Monocytes (%) (Auto) 10.4 % (0.0-8.0) Potassium Level 3.0 MEQ/L (3.5-5.1) Estimat Glomerular Filtration 83 ML/MIN (>89) Rate Hospital Course This is a pleasant 80-year-old female with significant past medical history of recent diagnosis of atrial fibrillation currently on Eliquis, recent admission for angioedema secondary to lisinopril requiring mechanical ventilation, hyperlipidemia, hypothyroid. Patient presented to the emergency room after she had a syncopal episode at home number 9:30 in the morning. Patient endorsed that she has been feeling nauseous for the last month, it is intermittent. This morning, she got up feeling nauseous, she sat on the couch for a while and then went up to make herself something to eat. While she was cooking, she felt very lightheaded as if she was about to fall. She decided to walk to the front door so she can unlock the front door and then call 911 when she felt more lightheaded and passed out. Indicated she fell on the floor and lay there for approximately 2 hours until her son arrived around 12 noon. As her son was assisting her, she had large episode of emesis that was brown, black in color. Endorsed that approximately a month ago she did have an episode of projectile brown color emesis with black stools that only lasted one day. As indicated above, patient is on Eliquis. States that she had a colonoscopy 8 years ago and had polypectomy. At that time she was evaluated per Dr. Bender. No history of PUD, no previous GI bleed, no alcohol abuse. Denies any heartburn, no abdominal pain, no weight loss. Appetite has been fair. No recent chest pain, shortness of breath, no palpitations. She had been fatigued. She did have a cardioversion July [id number]. Her potato chip frier is Dr. Saldaña. In the emergency room, patient was evaluated. Laboratory workup was completed. CBC significant for hemoglobin of 8, hematocrit of 24.7, last hemoglobin in June was 14. BMP essentially unremarkable, troponin was negative. INR 1.1. Imaging studies were completed. Cervical CT was negative for any fractures. Chest x-ray positive for cardiomegaly, no acute focal pulmonary infiltrate and pulmonary vascular congestion. CT of the head was negative. Patient was started on Protonix drip and 1 unit of blood was ordered. Patient was admitted for further evaluation and treatment. (1) Syncope (2) Upper GI bleed (3) A-fib (4) Dyslipidemia (5) Hx of angioedema (6) History of cardioversion (7) Anemia During the course of the hospitalization, the following took place: 80-year-old elderly female presented to the emergency room with intermittent nausea, today she had syncopal episode, coffee-ground emesis and tarry stools. Was recently diagnosed with atrial fibrillation, put on Eliquis. Hemoglobin 8 on admission, last one was 14. Upper GI bleed, on chronic anticoagulation. Gastroenterology was consulted, patient was put on IV fluids and protonic drip Upper endoscopy was recommended S/P EGD (09/25/16)--> 1. Gastritis antrum-biopsy ulcer antrum, vissible vessel , 3 clips applied, ablation using gold probe Schatzki's ring, hiatal hernia 2. Retroflexed views revealed a hiatal hernia. Pathology gastric antral mucosal biopsies with mild to moderate active chronic gastritis negative for intestinal metaplasia and dysplasia. The histopathology suggests the possibility of Helicobacter induced gastritis. -stool for h pylori was ordered, results pending. --S/P 2 units PRBC during admission, Hemoglobin dropped as low as 7.3. At discharge she had a hemoglobin of 10 -Was changed to PPI 40 mg PO BID -Cleared for dc by GI, ok to resume anticoagulation. Xarelto recommended by Dr. Saldaña -Instructed to avoid NSAIDs -No active bleeding, a small amount of black stools. No more hematemesis. Tolerated diet well. Afib, was SR, had cardioversion July 25. -Continuous cardiac telemetry ordered continued metoprolol 25 mg by mouth twice a day -Consulted cardiology, Dr. saldaña evaluated, input appreciated. To start Xarelto today. Patient indicates that Dr. saldaña had put her on Savaysa prior to admission she had not started it. This change was made because she could not afford Eliquis.. Instructed patient not to start medication, but to start on Xarelto 20 mg orally. Prescription called to pharmacy. Patient was instructed that if she was unable to afford medication, she was to contact Dr. saldaña as soon as possible. Recent angioedema secondary to lisinopril, required mechanical ventilation -Stable continued to monitor Fever, UA + leukocyte esterase, cult. mixed GPC no more fever, no urinary symptoms. -Was given Bactrim PO -No more fever, no urinary symptoms Replaced K SCDs for DVT prophylaxis Protonix for GI prophylaxis HH stable, no longer bleeding Stable for discharge Discharge home in stable condition F/U Dr. Saldaña next week F/U Dr. Mcgee F/U PCP Diet-soft Activity-as tolerated. Pt Condition on Discharge: Stable Discharge Disposition: Discharge Home Discharge Instructions DIET: Follow Instructions for: Heart Healthy Diet Activities you can perform: Weight Bearing as Edil Follow up Referrals: Gastroenterology - 2 Weeks with David Mcgee M.d. New Medications: Pantoprazole (Protonix) 40 Mg Tab 40 MG PO BID Reflux #60 Ref 1 TAB Continued Medications: Cholecalciferol (Vitamin D) 1,000 Unit Tab 1000 UNITS PO DAILY Nutritional Supplement #1 Ref 0 BOTTLE Cyanocobalamin (B12) 1,000 Mcg Tab Epinephrine Inj (Epipen 2-Jc Inj) 0.3 Mg/0.3 Ml Pfpen 0.3 MG SQ ONCE PRN ALLERGIC REACTION #1 Ref 0 PACK Metoprolol Tartrate (Metoprolol Tartrate) 25 Mg Tab 25 MG PO Q12HR afib #60 TAB Multiple Vitamin (Multiple Vitamin) 1 Tab 1 TAB PO DAILY Nutritional Supplement Ref 0 TAB Discontinued Medications: Apixaban (Eliquis) 5 Mg Tab 5 MG PO BID Blood Clot Prevention #60 TAB Sherry Hanson Sep 27, 2016 16:48
== END 2016-09-27 11:59 | disposition home or self-care (01) | DRG 378 ==
LOC: NEPE 12:57 → NEDA 14:59 → N05A 18:38
PROVIDERS: ADMIT Specialist; ATTEND Specialist
PROC: 0D568ZZ Destruction of Stomach, Via Natural or Artificial Opening Endoscopic (ICD-10-PCS; 2016-09-25)
PROC: 30253N1 (ICD-10-PCS; 2016-09-25)
PROC: 0DB68ZX Excision of Stomach, Via Natural or Artificial Opening Endoscopic, Diagnostic (ICD-10-PCS; principal; 2016-09-25 13:10)
DX: K92.0 Hematemesis (principal); D62 Acute posthemorrhagic anemia; I48.0 Paroxysmal atrial fibrillation; N39.0 Urinary tract infection, site not specified; K22.2 Esophageal obstruction; K92.1 Melena; I11.9 Hypertensive heart disease without heart failure; M48.02 Spinal stenosis, cervical region; R55 Syncope and collapse; K27.9 Peptic ulcer, site unspecified, unspecified as acute or chronic, without hemorrhage or perforation; E03.9 Hypothyroidism, unspecified; K29.50 Unspecified chronic gastritis without bleeding; K44.9 Diaphragmatic hernia without obstruction or gangrene; E78.5 Hyperlipidemia, unspecified; Z79.01 Long term (current) use of anticoagulants; Z79.899 Other long term (current) drug therapy; Z96.641 Presence of right artificial hip joint
CPT/HCPCS: 36430; 70450; 71010; 72125; 80048; 80053; 80076; 81001; 82550; 84484; 85014; 85018; 85025; 85610; 85730; 86850; 86900; 86901; 86920; 87086; 88305; 88312; 93005; 96365; 96375; C9113; J1940; J2405; J7120; P9016

== ENCOUNTER 2017-10-24 21:40 | Observation (INO) | END 2017-10-26 17:46 | disposition home or self-care (01) | DX: R55 Syncope and collapse (principal); I16.0 Hypertensive urgency; N39.0 Urinary tract infection, site not specified; E87.5 Hyperkalemia; I48.0 Paroxysmal atrial fibrillation; I10 Essential (primary) hypertension; I44.0 Atrioventricular block, first degree; R51 Headache; R00.1 Bradycardia, unspecified; R94.31 Abnormal electrocardiogram [ECG] [EKG]; Z79.899 Other long term (current) drug therapy; E78.00 Pure hypercholesterolemia, unspecified; Z79.01 Long term (current) use of anticoagulants | CPT/HCPCS: 70450; 71045; 80048; 80053; 81001; 82550; 82552; 83690; 83735; 84484; 85025; 87086; 93005; 93306; 93880; 96361; 96365; 96372; 97161; 99285; G0378; J0696; J7030 ==